=== PATIENT | female | born 1935 | race Caucasian/White ===

== ENCOUNTER 2017-08-09 04:20 | Emergency (ER) | payer OTHER ==
[2017-08-09 05:17] LABS: Urine Blood NEGATIVE (NEG); Urine Glucose NEGATIVE (NEG); Urine Protein NEGATIVE (NEG)
[2017-08-09 05:53] LABS: Protime INR 0.95
[2017-08-09 06:00] LABS: Potassium 4.4 mEq/L (3.6-5.0)
[2017-08-09 06:06] LABS: Albumin 4.2 g/dL (3.2-5.5); Bilirubin Direct 0.1 mg/dL (0-0.2); Bilirubin Total 0.9 mg/dL (0.3-1.2); Protein, Total 7.5 g/dL (6.0-8.3)
[2017-08-09 06:09] LABS: CKMB Creatine Kinase MB 4.1 ng/ml (0.3-4.0)
[2017-08-09 06:22] LABS: Absolute Lymphocytes (CBC) 1.8 K/uL (0.7-4.9); Absolute Monocytes 0.5 K/uL (0.1-1.3); Absolute Neutrophil 3.8 K/uL (1.8-8.0); Basophils % 0.4 % (0-1.3); Eosinophils % 3.5 % (0-4.4); Lymphocytes % 27.7 % (15.3-44.8); MCH 30.2 pg (27.0-35.0); MCV 91.8 fL (80-100); MPV 9.6 fL (7.6-11.3); Monocytes % 8.3 % (3.3-12.3); RBC Red Blood Cell Count 3.49 M/uL (3.86-4.86)
--- NOTE | 2017-08-09 06:56 | EKG ---
Test Date: 2017-08-09 Test Time: 05:25:57 Kier Boiler: LEDA MEASUREMENT RESULTS: Intervals: Rate: 81 OK: 164 QRSD: 88 QT: 394 QTc: 457 Albers: P: 46 OK: 164 QRS: 44 T: 44 INTERPRETIVE STATEMENTS: Sinus rhythm with premature atrial complexes Minimal voltage criteria for LVH, may be normal variant Borderline ECG Compared to ECG 10/20/2016 22:40:38 Atrial premature complex(es) now present Left ventricular hypertrophy now present ST (T wave) deviation no longer present Electronically Signed On 08-09-17 06:55:13 CDT by Haroon Rich
--- NOTE | 2017-08-09 06:58 | ER ---
Nurse's Notes [facility] Name: Joyce Ramírez Age: 81 yrs Sex: Female : 1935 Arrival Date: 08/09/2017 Time: 04:26 Bed 18 Private MD: Diagnosis: Dizziness and giddiness Presentation: 08/09 04:25 Presenting complaint: EMS states: Pt reported having tingling to right arm and pain to ea edis lower extremities. Transition of care: patient was not received from another setting of care. Onset of symptoms was August 09, 2017. Risk Assessment: Do you want to hurt yourself or someone else? Patient reports no desire to harm self or others. Initial Sepsis Screen: Does the patient meet any 2 criteria? No. Patient's initial sepsis screen is negative. Does the patient have a suspected source of infection? No. Patient's initial sepsis screen is negative. Care prior to arrival: IV initiated. 20 GA, in the right antecubital area. 04:25 Method Of Arrival: EMS: [facility], [place] 04:25 Acuity: BRITTANI 3 ea Triage Assessment: 04:25 General: Appears uncomfortable, Behavior is calm, cooperative, appropriate for age. ea Pain: Complains of pain in right leg and left leg Pain currently is 8 out of 10 on a pain scale. Quality of pain is described as aching, Pain began 1 hour ago. EENT: No signs and/or symptoms were reported regarding the EENT system. Neuro: Level of Consciousness is awake, alert, obeys commands, Oriented to person, place, time, situation. Cardiovascular: Heart tones S1 S2 present Patient's skin is warm and dry. Cardiovascular:. Respiratory: Airway is patent Respiratory effort is even, unlabored, Respiratory pattern is regular, symmetrical. GI: No signs and/or symptoms were reported involving the gastrointestinal system. : No signs and/or symptoms were reported regarding the genitourinary system. Derm: Skin is pink, warm \T\ dry. Historical: - Allergies: 04:51 MONTSERRAT INHIBITORS; ea 04:51 Aspirin; ea 04:51 Beta-Blockers (Beta-Adrenergic Blocking Agts); ea 04:51 CALCIUM CHANNEL BLOCKING AGENTS-PHENYLALKYLAMINES; ea 04:51 Codeine; ea 04:51 Doxycycline; ea 04:51 PENICILLINS; ea 04:51 Ymqeivy-Vdo-Xgk Reductase Inhibitors; ea 04:51 Sulfa (Sulfonamide Antibiotics); ea 04:51 tolterodine; ea - Home Meds: 04:51 CALCIUM 1500 MG daily [Active]; clonidine HCl 0.1 mg Oral tab 1 tab 3 times per day ea [Active]; Fish Oil Oral 1200 mg daily [Active]; FLUTICASOME PROPISNOTE twice a day [Active]; Iron CR 65 mg Oral daily [Active]; levothyroxine 100 mcg tab 1 tab once daily [Active]; magnesium oxide 500 mg Oral cap daily [Active]; omeprazole 40 mg Oral cpDR 1 cap once daily [Active]; pramipexole 1.5 mg Oral TbER 1 tab once daily [Active]; spironolactone 25 mg Oral tab 1 tab 2 times per day [Active]; Toviaz 4 mg Oral TbER 1 tab once daily [Active]; tramadol 50 mg Oral tab as needed [Active]; - PMHx: 04:51 Anemia; Cellulitis; CHF; GERD; Hyperlipidemia; Hypertension; Hypothyroidism; ea - Immunization history:: Adult Immunizations up to date. - Social history:: Smoking status: Patient/guardian denies using tobacco. Screenin:57 Abuse screen: Denies threats or abuse. Nutritional screening: No deficits noted. ea Tuberculosis screening: No symptoms or risk factors identified. Fall Risk IV access (20 points). Assessment: 05:00 Reassessment: Patient and/or family updated on plan of care and expected duration. Pain ea level reassessed. Patient is alert, oriented x 3, equal unlabored respirations, skin warm/dry/pink. 06:11 Reassessment: Patient appears in no apparent distress at this time. No changes from ak1 previously documented assessment. Patient is alert, oriented x 3, equal unlabored respirations, skin warm/dry/pink. daughter at there bedside. will continue to monitor. 06:45 Reassessment: Patient appears in no apparent distress at this time. No changes from ak1 previously documented assessment. Patient and/or family updated on plan of care and expected duration. Pain level reassessed. Vital Signs: 04:25 BP 164 / 75; Pulse 74; Resp 18; Temp 97.2(O); Pulse Ox 98% on R/A; Weight 79.38 kg; ea Height 5 ft. 5 in. (165.10 cm); Pain 8/10; 05:00 BP 136 / 62; Pulse 72; Resp 18; Pulse Ox 97% on R/A; Pain 0/10; ea 06:10 BP 118 / 54; Pulse 71; Resp 18; Pulse Ox 96% on R/A; ak1 04:25 Body Mass Index 29.12 (79.38 kg, 165.10 cm) ea ED Course: 04:25 Maintain EMS IV. Dressing intact. Good blood return noted. Site clean \T\ dry. Gauge \T\ ea site: 20 G RAC. 04:25 Patient has correct armband on for positive identification. Placed in gown. Bed in low ea position. Call light in reach. Side rails up X2. 04:25 Arm band placed on right wrist. Patient placed in an exam room, on a stretcher, on ea pulse oximetry. 04:26 Patient arrived in ED. ak1 04:48 Triage completed. ea 04:59 Doreen Moretnsen, RN is Primary Nurse. ea 05:16 Mario Rocha MD is Attending Physician. tw4 06:11 No provider procedures requiring assistance completed. ak1 07:16 IV discontinued, intact, bleeding controlled, No redness/swelling at site. Pressure em dressing applied. Administered Medications: No medications were administered Outcome: 06:57 Discharge ordered by . tw4 07:16 Discharged to home via wheelchair. em 07:16 Condition: good 07:16 Discharge instructions given to patient, Instructed on discharge instructions, follow up and referral plans. Demonstrated understanding of instructions, follow-up care. 07:18 Patient left the ED. em Signatures: Woody Stallworth LVN LVN Myah Salvador, RN ISABELLA ak Doreen Mortensen, RN Mario Lizarraga ea, MD MD tw4
--- NOTE | 2017-08-09 06:58 | EDPHYS ---
Physician Documentation [facility] Name: Joyce Ramírez Age: 81 yrs Sex: Female : 1935 Arrival Date: 08/09/2017 Time: 04:26 Bed 18 Private MD: ED Physician Mario Rocha HPI: 08/09 06:20 This 81 yrs old Female presents to ER via EMS with complaints of Arm Pain, tw4 Leg Pain. 06:20 The patient or guardian complains of pain, that is chronic. The complaints affect the tw4 right bicep, dorsal aspect of right forearm, right tricep and palmar aspect of right forearm. Context: The problem was sustained at home. Onset: The symptoms/episode began/occurred today. Treatment prior to arrival includes: no previous treatment. Modifying factors: The symptoms are alleviated by nothing. the symptoms are aggravated by nothing. Associated signs and symptoms: Pertinent positives: dizziness. Severity of symptoms: At their worst the symptoms were mild, in the emergency department the symptoms have resolved. The patient has not experienced similar symptoms in the past. Historical: - Allergies: 04:51 MONTSERRAT INHIBITORS; ea 04:51 Aspirin; ea 04:51 Beta-Blockers (Beta-Adrenergic Blocking Agts); ea 04:51 CALCIUM CHANNEL BLOCKING AGENTS-PHENYLALKYLAMINES; ea 04:51 Codeine; ea 04:51 Doxycycline; ea 04:51 PENICILLINS; ea 04:51 Mkbopdf-Hud-Hdw Reductase Inhibitors; ea 04:51 Sulfa (Sulfonamide Antibiotics); ea 04:51 tolterodine; ea - Home Meds: 04:51 CALCIUM 1500 MG daily [Active]; clonidine HCl 0.1 mg Oral tab 1 tab 3 times per day ea [Active]; Fish Oil Oral 1200 mg daily [Active]; FLUTICASOME PROPISNOTE twice a day [Active]; Iron CR 65 mg Oral daily [Active]; levothyroxine 100 mcg tab 1 tab once daily [Active]; magnesium oxide 500 mg Oral cap daily [Active]; omeprazole 40 mg Oral cpDR 1 cap once daily [Active]; pramipexole 1.5 mg Oral TbER 1 tab once daily [Active]; spironolactone 25 mg Oral tab 1 tab 2 times per day [Active]; Toviaz 4 mg Oral TbER 1 tab once daily [Active]; tramadol 50 mg Oral tab as needed [Active]; - PMHx: 04:51 Anemia; Cellulitis; CHF; GERD; Hyperlipidemia; Hypertension; Hypothyroidism; ea - Immunization history:: Adult Immunizations up to date. - Social history:: Smoking status: Patient/guardian denies using tobacco. ROS: 06:20 Constitutional: Negative for fever, chills, and weight loss, Cardiovascular: Negative tw4 for chest pain, palpitations, and edema, Respiratory: Negative for shortness of breath, cough, wheezing, and pleuritic chest pain, Abdomen/GI: Negative for abdominal pain, nausea, vomiting, diarrhea, and constipation. 06:20 Skin: Negative for injury, rash, and discoloration, Psych: Negative for depression, anxiety, suicide ideation, homicidal ideation, and hallucinations. 06:20 MS/extremity: Positive for pain, Negative for injury or acute deformity, abrasion, bite, contusion, decreased range of motion, deformity, ecchymosis, erythema, laceration, puncture, rash. 06:20 Neuro: Positive for dizziness, Negative for altered mental status, gait disturbance, headache, hearing loss, loss of consciousness, numbness, seizure activity, speech changes, syncope, tinnitus, tremor, visual changes, weakness. Exam: 06:20 Constitutional: This is a well developed, well nourished patient who is awake, alert, tw4 and in no acute distress. Head/Face: Normocephalic, atraumatic. Chest/axilla: Normal chest wall appearance and motion. Nontender with no deformity. No lesions are appreciated. Cardiovascular: Regular rate and rhythm with a normal S1 and S2. No gallops, murmurs, or rubs. Normal PMI, no JVD. No pulse deficits. Respiratory: Lungs have equal breath sounds bilaterally, clear to auscultation and percussion. No rales, rhonchi or wheezes noted. No increased work of breathing, no retractions or nasal flaring. Abdomen/GI: Soft, non-tender, with normal bowel sounds. No distension or tympany. No guarding or rebound. No evidence of tenderness throughout. Back: No spinal tenderness. No costovertebral tenderness. Full range of motion. 06:20 Musculoskeletal/extremity: Extremities: all appear grossly normal, with no appreciated pain with palpation, ROM: no acute changes, Circulation is intact in all extremities. Edema, 1+ to the left ankle, left foot, right ankle and right foot is noted. 06:20 Skin: Appearance: Color: mary, flushing, not noted, that are mild, induration, that is mild is noted, located on the right leg, lateral aspect of left calf, left calf, medial aspect of left calf and left olsen, Turgor: is poor. Vital Signs: 04:25 BP 164 / 75; Pulse 74; Resp 18; Temp 97.2(O); Pulse Ox 98% on R/A; Weight 79.38 kg; ea Height 5 ft. 5 in. (165.10 cm); Pain 8/10; 05:00 BP 136 / 62; Pulse 72; Resp 18; Pulse Ox 97% on R/A; Pain 0/10; ea 06:10 BP 118 / 54; Pulse 71; Resp 18; Pulse Ox 96% on R/A; ak1 04:25 Body Mass Index 29.12 (79.38 kg, 165.10 cm) ea MDM: 05:16 Patient medically screened. tw4 06:23 Differential diagnosis: contusion, abrasion, tendonitis. Data reviewed: vital signs, tw4 nurses notes. Counseling: I had a detailed discussion with the patient and/or guardian regarding: the historical points, exam findings, and any diagnostic results supporting the discharge/admit diagnosis. 08/09 04:51 Order name: Urine Dipstick--Ancillary (enter results) 2 08/09 05:16 Order name: Basic Metabolic Panel; Complete Time: 06:51 08/09 06:51 Interpretation: Normal except: BUN 36. 08/09 05:16 Order name: BNP; Complete Time: 06:51 08/09 06:53 Interpretation: Within normal limits: BNP 98. 08/09 05:16 Order name: CBC with Diff; Complete Time: 06:51 08/09 06:51 Interpretation: RBC 3.49; HCT 32.0; HGB 10.5. 08/09 05:16 Order name: Ckmb; Complete Time: 06:51 08/09 06:53 Interpretation: Within normal limits: CKMB 4.1. 08/09 05:16 Order name: CPK; Complete Time: 06:51 08/09 05:16 Order name: LFT's; Complete Time: 06:51 08/09 06:53 Interpretation: Within normal limits. 08/09 05:16 Order name: Magnesium; Complete Time: 06:51 08/09 06:54 Interpretation: Within normal limits. 08/09 05:16 Order name: PT-INR; Complete Time: 06:51 08/09 05:16 Order name: Ptt, Activated; Complete Time: 06:51 08/09 05:16 Order name: Troponin (emerg Dept Use Only); Complete Time: 06:51 08/09 06:54 Interpretation: TROPED < 0.03. 08/09 05:16 Order name: EKG; Complete Time: 05:17 08/09 05:16 Order name: Cardiac monitoring; Complete Time: 05:18 08/09 05:16 Order name: EKG - Nurse/Tech; Complete Time: 05:33 08/09 05:16 Order name: IV Saline Lock; Complete Time: 05:18 08/09 05:16 Order name: Labs collected and sent; Complete Time: 05:18 08/09 05:16 Order name: O2 Per Protocol; Complete Time: 05:18 08/09 05:16 Order name: O2 Sat Monitoring; Complete Time: 05:18 08/09 05:16 Order name: Urine Dipstick-Ancillary (obtain specimen); Complete Time: 05:18 EC:23 Rate is 81 beats/min. Rhythm is regular. QRS [place] is Normal. [place] interval is normal. QRS tw4 interval is normal. QT interval is normal. No Q waves. T waves are Normal. No ST changes noted. Clinical impression: NSR w/ Non-specific ST/T Changes. Interpreted by me. Reviewed by me. Administered Medications: No medications were administered Disposition: 08/09/17 06:57 Discharged to Home. Impression: Dizziness and giddiness. - Condition is Stable. - Discharge Instructions: Dizziness, Near-Syncope, Fqll-sv-Bber. - Medication Reconciliation Form, Thank You Letter, Antibiotic Education, Prescription Opioid Use form. - Follow up: Private Physician; When: As needed; Reason: If symptoms return, Recheck today's complaints, Continuance of care, Re-evaluation by your physician. - Problem is new. - Symptoms have improved. Signatures: Dispatcher [employer] EDWoody Owens, FIRE PRODUCTION OPERATOR FIRE PRODUCTION OPERATOR Doreen De Leon, RN RN Mario Garcia MD MD tw4 Corrections: (The following items were deleted from the chart) 07:18 06:57 08/09/2017 06:57 Discharged to Home. Impression: Dizziness and giddiness. em Condition is Stable. Forms are Medication Reconciliation Form, Thank You Letter, Antibiotic Education, Prescription Opioid Use. Follow up: Private Physician; When: As needed; Reason: If symptoms return, Recheck today's complaints, Continuance of care, Re-evaluation by your physician. Problem is new. Symptoms have improved. tw4
[2017-08-09 07:23] VITALS: TEMP 97.2
[2017-08-09 07:26] VITALS: BP 118/54; O2SAT 96
== END 2017-08-09 07:18 | disposition home or self-care (01) ==
LOC: ER 04:20
DX: R42 Dizziness and giddiness (principal); I10 Essential (primary) hypertension; E78.5 Hyperlipidemia, unspecified; I50.9 Heart failure, unspecified; E03.9 Hypothyroidism, unspecified; Z88.0 Allergy status to penicillin; Z88.1 Allergy status to other antibiotic agents; Z88.2 Allergy status to sulfonamides; Z88.6 Allergy status to analgesic agent; Z88.8 Allergy status to other drugs, medicaments and biological substances
CPT/HCPCS: 36415; 80048; 80076; 81003; 82550; 82553; 83735; 83880; 84484; 85025; 85610; 85730; 93005; 99283

== ENCOUNTER 2017-12-11 11:46 | Inpatient (IN) | payer OTHER ==
[2017-12-11] MEDS ORDERED: NA CHLORIDE 0.9% 1,000 ML ONE (12:52)
--- NOTE | 2017-12-11 13:48 | RAD REPORT ---
EXAM DESCRIPTION: RAD - Chest Single View - 12/11/2017 1:28 pm CLINICAL HISTORY: COUGH Chest pain. COMPARISON: Chest Single View dated 08/06/2016; Chest Single View dated 06/28/2016; Chest Single View dated 06/27/2016; Chest Single View dated 05/22/2016 FINDINGS: Portable technique limits examination quality. Bilateral pulmonary opacities are present, nonspecific, but favoring pulmonary edema. Heart is upper limit normal size. No displaced fractures. IMPRESSION: Mild CHF versus volume overload pattern.
--- NOTE | 2017-12-11 14:34 | RAD REPORT ---
EXAM DESCRIPTION: US - Extrem Venous W Compress Handy - 12/11/2017 2:19 pm CLINICAL HISTORY: Pain;Swelling Bilateral leg edema and swelling. COMPARISON: Extrem Venous W Compress Handy dated 08/06/2016 TECHNIQUE: Real-time sonographic interrogation of the left and right lower extremity deep venous sys tems was performed. FINDINGS: Normal compressibility, flow augmentation, phasic flow and spontaneous flow is identified in both the left and right lower extremity deep venous systems. IMPRESSION: No sonographic evidence of left or right lower extremity deep venous thrombosis.
[2017-12-11] MEDS ORDERED: FUROSEMIDE 40 MG/4 ML VIAL ONE (14:55)
[2017-12-11] MEDS ORDERED: CEFEPIME/SWI 1gm 1 GM/10 ML SYR IV ONE (15:00)
[2017-12-11 15:13] LABS: Protime INR 0.99
[2017-12-11 15:20] LABS: ALT/SGPT 16 U/L (12-78); AST/SGOT 14 U/L (15-37); Albumin 3.7 g/dL (3.4-5.0); Alkaline Phosphatase 48 U/L (45-117); BUN Blood Urea Nitrogen 32 mg/dL (7-18); Bicarbonate 28 mmol/L (21-32); Bilirubin Direct 0.2 mg/dL (0-0.2); Bilirubin Total 0.8 mg/dL (0.2-1.0); Glucose Level 94 mg/dL (74-106); Lipase 95 U/L (73-393); Magnesium 2.5 mg/dL (1.8-2.4); NT PRO-BNP 500 pg/mL (<450); Potassium 4.6 mmol/L (3.5-5.1); Protein, Total 7.4 g/dL (6.4-8.2); Sodium Level 141 mmol/L (136-145); Troponin (Emerg Dept Use Only) < 0.02 ng/mL (0.0-0.045)
[2017-12-11 15:22] LABS: Absolute Lymphocytes (CBC) 1.3 K/uL (0.7-4.9); Absolute Monocytes 0.3 K/uL (0.1-1.3); Absolute Neutrophil 3.4 K/uL (1.8-8.0); Basophils % 0.7 % (0-1.3); Eosinophils % 1.4 % (0-4.4); Hematocrit 29.1 % (36.0-45.0); Lymphocytes % 25.6 % (15.3-44.8); MCH 36.9 pg (27.0-35.0); MCV 102.6 fL (80-100); MPV 9.1 fL (7.6-11.3); RBC Red Blood Cell Count 2.84 M/uL (3.86-4.86)
[2017-12-11] MEDS ORDERED: ALBUTEROL 2.5 MG/3 ML NEB SOL NEB PRN (15:56)
[2017-12-11] MEDS ORDERED: ONDANSETRON 4 MG/2 ML VIAL IV PRN (15:56)
[2017-12-11] MEDS ORDERED: IPRATROPIUM BROM 0.5MG/2.5ML NEB PRN (15:56)
[2017-12-11] MEDS ORDERED: VANCOMYCIN/NS 1 gm 1 GM/250 ML BAG IVPB SCH (16:00)
[2017-12-11] MEDS ORDERED: VANCOMYCIN 1 GM/250 ML BAG ONE (16:02)
[2017-12-11] MEDS ORDERED: ACETAMINOPHEN 325 MG TABLET ONE (16:02)
--- NOTE | 2017-12-11 16:08 | ER ---
Nurse's Notes [facility] Name: Joyce Ramírez Age: 82 yrs Sex: Female : 1935 Arrival Date: 12/11/2017 Time: 11:57 Bed 13 Private MD: Diagnosis: Unspecified combined systolic (congestive) and diastolic (congestive) heart failure;Cystitis;Anemia, unspecified;Weakness;Cellulitis and acute lymphangitis of other parts of limb;Edema, unspecified Presentation: 12/11 11:45 Presenting complaint: EMS states: Pt. is 82 yr old, A \T\ O x 4. C/o feeling ill, weak, rb1 hearing has been coming and going x 2-3 days. Stroke scale was negative. C/o SOB. Stroke scale was negative. Denies Pain, NVD, and Fever. History of Pinched nerve on the left side of her neck, UTI, CHF, HTN, and lymphedema. BS 136. Has 20 G L AC. Transition of care: patient was not received from another setting of care. Onset of symptoms is unknown. Risk Assessment: Do you want to hurt yourself or someone else? Patient reports no desire to harm self or others. Initial Sepsis Screen: Does the patient meet any 2 criteria? No. Patient's initial sepsis screen is negative. Does the patient have a suspected source of infection? No. Patient's initial sepsis screen is negative. Care prior to arrival: None. 11:45 Method Of Arrival: [facility] rb1 11:45 Acuity: BRITTANI 3 rb1 Triage Assessment: 11:45 General: Appears in no apparent distress. comfortable, Behavior is calm, cooperative, rb1 Reports feeling ill for Denies fever. Pain: Denies pain. Neuro: Level of Consciousness is awake, alert, obeys commands, Oriented to person, place, time, situation, Shear Helper are weak on left Moves all extremities. Gait is steady, Speech is normal, Facial symmetry appears normal, Pupils are PERRLA. Cardiovascular: Capillary refill < 3 seconds is brisk in bilateral fingers. Respiratory: Airway is patent Respiratory effort is even, unlabored, Respiratory pattern is regular, symmetrical. GI: No signs and/or symptoms were reported involving the gastrointestinal system. : Reports incontinence. Derm: Skin is pink, warm \T\ dry. Musculoskeletal: Range of motion: intact in all extremities. Historical: - Allergies: 11:45 MONTSERRAT INHIBITORS; rb1 11:45 Aspirin; rb1 11:45 Beta-Blockers (Beta-Adrenergic Blocking Agts); rb1 11:45 CALCIUM CHANNEL BLOCKING AGENTS-PHENYLALKYLAMINES; rb1 11:45 Codeine; rb1 11:45 Doxycycline; rb1 11:45 PENICILLINS; rb1 11:45 Gpfcevl-Ccl-Inl Reductase Inhibitors; rb1 11:45 Sulfa (Sulfonamide Antibiotics); rb1 11:45 tolterodine; rb1 11:45 Levofloxacin; rb1 - Home Meds: 11:45 CALCIUM 1500 MG daily [Active]; levothyroxine 112 mcg oral tab [Active]; magnesium rb1 oxide 500 mg Oral cap daily [Active]; Iron CR 65 mg Oral daily [Active]; omeprazole 20 mg oral cpDR [Active]; Fish Oil Oral 1200 mg daily [Active]; Vitamin D Oral daily [Active]; pramipexole 1.5 mg Oral TbER 1 tab once daily [Active]; hydralazine 25 mg Oral tab 1 tab daily [Active]; furosemide 80 mg Oral tab 1 tab once daily [Active]; ropinirole 0.5 mg oral tab 1 tab daily [Active]; - PMHx: 11:45 Anemia; Cellulitis; CHF; GERD; Hyperlipidemia; Hypertension; Hypothyroidism; rb1 - PSHx: 11:45 partial hysterectomy; ovarian mass; cyst left breast; right hip; cataract both eyes; rb1 - Immunization history:: Adult Immunizations up to date. - Social history:: Smoking status: Patient/guardian denies using tobacco. - Ebola Screening: : Patient negative for fever greater than or equal to 101.5 degrees Fahrenheit, and additional compatible Ebola Virus Disease symptoms. Screenin:45 Abuse screen: Denies threats or abuse. Nutritional screening: No deficits noted. rb1 Tuberculosis screening: No symptoms or risk factors identified. Fall Risk Fall in past 12 months (25 points). No secondary diagnosis (0 pts). No IV (0 pts). Ambulatory Aid- None/Bed Rest/Nurse Assist (0 pts). Gait- Weak (10 pts.). Mental Status- Oriented to own ability (0 pts). Total Hollingsworth Fall Scale indicates Low Risk Score (25-44 pts). Fall prevention measures have been instituted. Side Rails Up X 2 Placed close to Nursing Station 1:1 attendant Assigned to Pt. Frequent Obs/Assesments occuring Family Present and informed to notify staff if they need to leave bedside As available Patient and Family Educated on Fall Prevention Program and strategies. Assessment: 11:45 Reassessment: See triage assessment. rb1 13:33 Reassessment: Patient appears in no apparent distress at this time. Patient and/or rb1 family updated on plan of care and expected duration. Pain level reassessed. Patient is alert, oriented x 3, equal unlabored respirations, skin warm/dry/pink. 13:35 Reassessment: US at bedside. rb1 16:00 Reassessment: Patient appears in no apparent distress at this time. Patient and/or rb1 family updated on plan of care and expected duration. Pain level reassessed. Patient is alert, oriented x 3, equal unlabored respirations, skin warm/dry/pink. Family at bedside. 16:53 Reassessment: Called report to ISABELLA Friedman. Information from the SBAR was given. All rb1 questions asked and answered. 17:00 Reassessment: Patient appears in no apparent distress at this time. No changes from rb1 previously documented assessment. Family at bedside. Vital Signs: 11:45 BP 189 / 78; Pulse 85; Resp 17; Temp 97.6(O); Pulse Ox 99% on R/A; Weight 82.55 kg (R); rb1 Height 5 ft. 4 in. (162.56 cm) (R); Pain 0/10; 12:03 Pulse Ox 99% on R/A; dh3 13:00 BP 184 / 71; Pulse 90; Resp 22; Pulse Ox 100% on R/A; rb1 14:00 BP 157 / 59; Pulse 82; Resp 21; Pulse Ox 97% on R/A; rb1 15:00 BP 138 / 65; Pulse 77; Resp 15; Pulse Ox 98% on R/A; rb1 16:00 BP 160 / 92; Pulse 79; Resp 18; Pulse Ox 97% on R/A; Pain 6/10; rb1 16:30 BP 165 / 63; Pulse 80; Resp 25; Pulse Ox 98% on R/A; rb1 11:45 Body Mass Index 31.24 (82.55 kg, 162.56 cm) rb1 ED Course: 11:45 Maintain EMS IV. Dressing intact. Good blood return noted. Site clean \T\ dry. Gauge \T\ rb 1 site: 20 G L AC. 11:45 Arm band placed on right wrist. rb1 11:45 Patient has correct armband on for positive identification. Bed in low position. Call rb1 light in reach. Side rails up X2. Pulse ox on. NIBP on. 11:50 Urine collected: bedpan, clear. dh3 11:57 Patient arrived in ED. rb1 12:01 Luis Doll MD is Attending Physician. james 12:02 EKG done, by ED staff, reviewed by Luis Doll MD. dh3 12:06 Triage completed. rb1 12:13 Lou Kim, RN is Primary Nurse. rb1 13:20 Initial lab(s) drawn, by ar, sent to lab. dh3 13:28 XRAY Chest (1 view) In Process Unspecified. EDMS 14:00 Ultrasound completed. Patient tolerated well. Notified ED Physician jeanna. sg3 14:19 US Extremity Venous W Compression Handy In Process Unspecified. EDMS 14:46 Initial lab(s) drawn, by ar, sent to lab. First set of blood cultures drawn by me. 3 Inserted saline lock: 20 gauge in right antecubital area, using aseptic technique. Blood collected. 15:02 Second set of blood cultures drawn by me. dh3 15:47 Arthur Becerra MD is Hospitalizing Provider. [facility] 17:10 No provider procedures requiring assistance completed. Patient admitted, IV remains in rb1 place. Administered Medications: Discontinued: NS 0.9% 1000 ml IV at 125 ml/hr continuous 12:50 Drug: NS 0.9% 1000 ml Route: IV; Rate: 125 ml/hr; Site: left antecubital; rb1 14:53 Drug: Lasix 40 mg Route: IVP; Site: left antecubital; rb1 15:17 Follow up: Response: No adverse reaction rb1 15:40 Drug: Cefepime 1 grams Route: IVPB; Rate: 200 ml/hr; Infused Over: 30 mins; Site: left rb1 antecubital; 16:10 Follow up: Response: No adverse reaction; IV Status: Completed infusion rb1 16:04 Drug: Tylenol 650 mg Route: PO; rb1 16:40 Follow up: Response: No adverse reaction; Pain is decreased rb1 16:06 Drug: vancoMYCIN 1 grams Route: IVPB; Infused Over: 2 hrs; Site: left antecubital; rb1 17:10 Follow up: IV Status: Infusion continued upon admission rb1 Outcome: 16:08 Decision to Hospitalize by Provider. james 17:10 Patient left the ED. rb1 17:10 Admitted to Med/surg accompanied by tech, family with patient, via stretcher, room 206, rb1 with chart, Report called to ISABELLA Friedman/ISABELLA Blackburn. Information from the SBAR was given. All questions asked and answered. 17:10 Condition: stable 17:10 Instructed on the need for admit. Signatures: Dispatcher [employer] EDKS Luis Doll MD MD cha Barber, Rebecca RN RN rb1 Irish Garduno 3 Mackenzie Ryan 3 Corrections: (The following items were deleted from the chart) 17:23 17:21 Patient left the ED. rb1 rb1
--- NOTE | 2017-12-11 16:09 | EDPHYS ---
Physician Documentation [facility] Name: Joyce Ramírez Age: 82 yrs Sex: Female : 1935 Arrival Date: 12/11/2017 Time: 11:57 Bed 13 Private MD: ED Physician Luis Doll HPI: 12/11 12:27 This 82 yrs old Female presents to ER via EMS with complaints of General james Weakness. 12:27 The patient presents with pain. The complaints affect the right leg and left leg. james Context: The problem was sustained at home, resulted from an unknown cause. Onset: The symptoms/episode began/occurred 2 day(s) ago. Historical: - Allergies: 11:45 MONTSERRAT INHIBITORS; rb1 11:45 Aspirin; rb1 11:45 Beta-Blockers (Beta-Adrenergic Blocking Agts); rb1 11:45 CALCIUM CHANNEL BLOCKING AGENTS-PHENYLALKYLAMINES; rb1 11:45 Codeine; rb1 11:45 Doxycycline; rb1 11:45 PENICILLINS; rb1 11:45 Tgrbzdp-Bnj-Lem Reductase Inhibitors; rb1 11:45 Sulfa (Sulfonamide Antibiotics); rb1 11:45 tolterodine; rb1 11:45 Levofloxacin; rb1 - Home Meds: 11:45 CALCIUM 1500 MG daily [Active]; levothyroxine 112 mcg oral tab [Active]; magnesium rb1 oxide 500 mg Oral cap daily [Active]; Iron CR 65 mg Oral daily [Active]; omeprazole 20 mg oral cpDR [Active]; Fish Oil Oral 1200 mg daily [Active]; Vitamin D Oral daily [Active]; pramipexole 1.5 mg Oral TbER 1 tab once daily [Active]; hydralazine 25 mg Oral tab 1 tab daily [Active]; furosemide 80 mg Oral tab 1 tab once daily [Active]; ropinirole 0.5 mg oral tab 1 tab daily [Active]; - PMHx: 11:45 Anemia; Cellulitis; CHF; GERD; Hyperlipidemia; Hypertension; Hypothyroidism; rb1 - PSHx: 11:45 partial hysterectomy; ovarian mass; cyst left breast; right hip; cataract both eyes; rb1 - Immunization history:: Adult Immunizations up to date. - Social history:: Smoking status: Patient/guardian denies using tobacco. - Ebola Screening: : Patient negative for fever greater than or equal to 101.5 degrees Fahrenheit, and additional compatible Ebola Virus Disease symptoms. ROS: 12:30 Constitutional: Negative for fever, chills, and weight loss, Eyes: Negative for injury, james pain, redness, and discharge, ENT: Negative for injury, pain, and discharge, Neck: Negative for injury, pain, and swelling, Cardiovascular: Negative for chest pain, palpitations, and edema, Abdomen/GI: Negative for abdominal pain, nausea, vomiting, diarrhea, and constipation, Back: Negative for injury and pain, : Negative for injury, bleeding, discharge, and swelling, Neuro: Negative for headache, weakness, numbness, tingling, and seizure, Psych: Negative for depression, anxiety, suicide ideation, homicidal ideation, and hallucinations, Allergy/Immunology: Negative for hives, rash, and allergies, Endocrine: Negative for neck swelling, polydipsia, polyuria, polyphagia, and marked weight changes. 12:30 Respiratory: Positive for cough. 12:30 MS/extremity: Positive for pain, of the right leg and left leg. 12:30 Skin: Positive for cellulitis, swelling, of the right leg and left leg. Exam: 12:30 Constitutional: This is a well developed, well nourished patient who is awake, alert, james and in no acute distress. Head/Face: Normocephalic, atraumatic. Eyes: Pupils equal round and reactive to light, extra-ocular motions intact. Lids and lashes normal. Conjunctiva and sclera are non-icteric and not injected. Cornea within normal limits. Periorbital areas with no swelling, redness, or edema. ENT: Nares patent. No nasal discharge, no septal abnormalities noted. Tympanic membranes are normal and external auditory canals are clear. Oropharynx with no redness, swelling, or masses, exudates, or evidence of obstruction, uvula midline. Mucous membranes moist. Neck: Trachea midline, no thyromegaly or masses palpated, and no cervical lymphadenopathy. Supple, full range of motion without nuchal rigidity, or vertebral point tenderness. No Meningismus. Chest/axilla: Normal chest wall appearance and motion. Nontender with no deformity. No lesions are appreciated. Cardiovascular: Regular rate and rhythm with a normal S1 and S2. No gallops, murmurs, or rubs. Normal PMI, no JVD. No pulse deficits. Abdomen/GI: Soft, non-tender, with normal bowel sounds. No distension or tympany. No guarding or rebound. No evidence of tenderness throughout. Back: No spinal tenderness. No costovertebral tenderness. Full range of motion. Female : Normal external genitalia. Neuro: Awake and alert, GCS 15, oriented to person, place, time, and situation. Cranial nerves II-XII grossly intact. Motor strength 5/5 in all extremities. Sensory grossly intact. Cerebellar exam normal. Normal gait. Psych: Awake, alert, with orientation to person, place and time. Behavior, mood, and affect are within normal limits. 12:30 Respiratory: the patient does not display signs of respiratory distress, Respirations: normal, Breath sounds: no acute changes, Respiratory rate: 17 Vital Signs: 11:45 BP 189 / 78; Pulse 85; Resp 17; Temp 97.6(O); Pulse Ox 99% on R/A; Weight 82.55 kg (R); rb1 Height 5 ft. 4 in. (162.56 cm) (R); Pain 0/10; 12:03 Pulse Ox 99% on R/A; dh3 13:00 BP 184 / 71; Pulse 90; Resp 22; Pulse Ox 100% on R/A; rb1 14:00 BP 157 / 59; Pulse 82; Resp 21; Pulse Ox 97% on R/A; rb1 15:00 BP 138 / 65; Pulse 77; Resp 15; Pulse Ox 98% on R/A; rb1 16:00 BP 160 / 92; Pulse 79; Resp 18; Pulse Ox 97% on R/A; Pain 6/10; rb1 16:30 BP 165 / 63; Pulse 80; Resp 25; Pulse Ox 98% on R/A; rb1 11:45 Body Mass Index 31.24 (82.55 kg, 162.56 cm) [facility] MDM: 12:01 Patient medically screened. [facility] 12:31 Data reviewed: vital signs, nurses notes, lab test result(s), EKG, radiologic studies, [facility] plain films. 12/11 12: Order name: Basic Metabolic Panel; Complete Time: 15:41 [facility] 12/11 12:26 Order name: CBC with Diff [facility] 12/11 12:26 Order name: LFT's; Complete Time: 15:41 [facility] 12/11 12:26 Order name: Magnesium; Complete Time: 15:41 [facility] 12/11 12:26 Order name: NT PRO-BNP; Complete Time: 15:41 [facility] 12/11 12:26 Order name: PT-INR; Complete Time: 15:41 [facility] 12/11 12:26 Order name: Troponin (emerg Dept Use Only); Complete Time: 15:41 [facility] 12/11 12:26 Order name: Lipase; Complete Time: 15:41 [facility] 12/11 12:26 Order name: Procalcitonin [facility] 12/11 12:26 Order name: Urine Culture [facility] 12/11 12:26 Order name: Blood Culture Adult (2) [facility] 12/11 12:52 Order name: Urine Dipstick--Ancillary (enter results) sp 12/11 15:23 Order name: CBC Smear Scan [facility] 12/11 16:06 Order name: Troponin I [facility] 12/11 12:26 Order name: XRAY Chest (1 view); Complete Time: 14:09 [facility] 12/11 12:26 Order name: EKG; Complete Time: 12:27 [facility] 12/11 12:26 Order name: Cardiac monitoring; Complete Time: 13:21 [facility] 12/11 12:26 Order name: EKG - Nurse/Tech; Complete Time: 13:21 [facility] 12/11 13:06 Order name: US Extremity Venous W Compression Handy; Complete Time: 15:04 [facility] 12/11 16:06 Order name: CONS Pharmacy Consult [facility] 12/11 16:06 Order name: Echo with Doppler [facility] 12/11 16:06 Order name: EKG Electrocardiogram [facility] 12/11 16:06 Order name: EKG Electrocardiogram [facility] 12/11 16:06 Order name: Troponin I [facility] 12/11 12:26 Order name: IV Saline Lock; Complete Time: 13:21 [facility] 12/11 12:26 Order name: Labs collected and sent; Complete Time: 13:21 [facility] 12/11 12:26 Order name: O2 Per Protocol; Complete Time: 13:21 [facility] 12/11 12:26 Order name: O2 Sat Monitoring; Complete Time: 13:21 [facility] 12/11 12:26 Order name: Urine Dipstick-Ancillary (obtain specimen); Complete Time: 13:21 [facility] 12/11 15:00 Order name: Santos; Complete Time: 15:50 rb1 Administered Medications: Discontinued: NS 0.9% 1000 ml IV at 125 ml/hr continuous 12:50 Drug: NS 0.9% 1000 ml Route: IV; Rate: 125 ml/hr; Site: left antecubital; rb1 14:53 Drug: Lasix 40 mg Route: IVP; Site: left antecubital; rb1 15:17 Follow up: Response: No adverse reaction rb1 15:40 Drug: Cefepime 1 grams Route: IVPB; Rate: 200 ml/hr; Infused Over: 30 mins; Site: left rb1 antecubital; 16:10 Follow up: Response: No adverse reaction; IV Status: Completed infusion rb1 16:04 Drug: Tylenol 650 mg Route: PO; rb1 16:40 Follow up: Response: No adverse reaction; Pain is decreased rb1 16:06 Drug: vancoMYCIN 1 grams Route: IVPB; Infused Over: 2 hrs; Site: left antecubital; rb1 17:10 Follow up: IV Status: Infusion continued upon admission rb1 Disposition: 12/11/17 16:08 Hospitalization ordered by Arthur Becerra for Inpatient Admission. Preliminary diagnosis are Unspecified combined systolic (congestive) and diastolic (congestive) heart failure, Cystitis, Anemia, unspecified, Weakness, Cellulitis and acute lymphangitis of other parts of limb, Edema, unspecified. - Bed requested for Telemetry/MedSurg (Inpatient). - Status is Inpatient Admission. rb1 - Condition is Stable. - Problem is new. - Symptoms have improved. UTI on Admission? Yes Signatures: Dispatcher [employer] [facility] Luis Doll MD MD cha Pinkerton, Shawna sp Barber, Rebecca, RN RN rb1 Corrections: (The following items were deleted from the chart) 16:00 14:47 Shoulder Left 2 View+RAD.RAD.BRZ ordered. [facility] 16:40 16:08 Hospitalization Ordered by Arthur Becerra MD for Inpatient Admission. Preliminary sp diagnosis is Unspecified combined systolic (congestive) and diastolic (congestive) heart failure; Cystitis; Anemia, unspecified; Weakness; Cellulitis and acute lymphangitis of other parts of limb; Edema, unspecified. Bed requested for Telemetry/MedSurg (Inpatient). Status is Inpatient Admission. Condition is Stable. Problem is new. Symptoms have improved. UTI on Admission? Yes. james 17:21 16:40 12/11/2017 16:08 Hospitalization Ordered by Arthur Becerra MD for Inpatient rb1 Admission. Preliminary diagnosis is Unspecified combined systolic (congestive) and diastolic (congestive) heart failure; Cystitis; Anemia, unspecified; Weakness; Cellulitis and acute lymphangitis of other parts of limb; Edema, unspecified. Bed requested for Telemetry/MedSurg (Inpatient). Status is Inpatient Admission. Condition is Stable. Problem is new. Symptoms have improved. UTI on Admission? Yes. sp
[2017-12-11] MEDS ORDERED: VANCOMYCIN 500 MG in NA CHLORIDE 0.9% 100 ML IVPB ONE (16:30)
[2017-12-11 16:44] LABS: Agglutinates, Cold (RBC Morph) NOTED; Blood Morphology Comment NOTED (NOT SEEN); Platelet Estimate ADEQ; Urine White Blood Cell Casts OK
[2017-12-11] MEDS ORDERED: FUROSEMIDE 20 MG/ 2ML VIAL IV SCH (17:00)
[2017-12-11] MEDS: ACETAMINOPHEN 500 MG TAB PO PRN (18:40)
[2017-12-11] MEDS: ROPINIROLE HCL 0.25 MG TAB PO SCH (20:08)
[2017-12-11] MEDS: TRAMADOL HCL 50 MG TAB PO SCH (20:09)
[2017-12-11 20:32] LABS: Urine Blood NEGATIVE (NEG); Urine Glucose NEGATIVE (NEG); Urine Specific Gravity 1.015 (1.005-1.030)
[2017-12-11 20:33] LABS: Urine Protein NEGATIVE (NEG)
[2017-12-11] MEDS ORDERED: CEFEPIME 1 GM/VIAL IV SCH (21:00)
[2017-12-12] MEDS: TRAMADOL HCL 50 MG TAB PO SCH ×4 (02:05→20:55)
[2017-12-12] MEDS ORDERED: CEFEPIME/SWI 1gm 1 GM/10 ML SYR IV SCH (05:00)
[2017-12-12 05:17] LABS: Potassium 3.9 mmol/L (3.5-5.1)
[2017-12-12 05:23] LABS: Absolute Lymphocytes (CBC) 1.6 K/uL (0.7-4.9); Absolute Monocytes 0.7 K/uL (0.1-1.3); Absolute Neutrophil 5.9 K/uL (1.8-8.0); Basophils % 0.3 % (0-1.3); Eosinophils % 1.9 % (0-4.4); Lymphocytes % 18.7 % (15.3-44.8); MCH 33.3 pg (27.0-35.0); MCV 96.4 fL (80-100); MPV 8.7 fL (7.6-11.3); Monocytes % 8.3 % (3.3-12.3); RBC Red Blood Cell Count 3.11 M/uL (3.86-4.86)
--- NOTE | 2017-12-12 07:35 | RAD REPORT ---
EXAM DESCRIPTION: RAD - Chest Single View - 12/12/2017 6:43 am CLINICAL HISTORY: Chest pain COMPARISON: December 11 TECHNIQUE: AP portable chest image was obtained 0628 hours . FINDINGS: Lung volumes are low. Lung parenchymal opacification is similar to slightly improved. Hear t size is normal and stable. Trachea is midline. No measurable pleural effusion and no pneumothorax. IMPRESSION: Shallow inspiration film showing slight improvement in the lung parenchymal opacificatio n. No progressive process seen.
--- NOTE | 2017-12-12 08:09 | EKG ---
Test Date: 2017-12-11 Test Time: 11:58:25 Director Call: AGNES MEASUREMENT RESULTS: Intervals: Rate: 83 WY: 150 QRSD: 84 QT: 366 QTc: 430 [place]: P: 59 WY: 150 QRS: 53 T: 61 INTERPRETIVE STATEMENTS: Normal sinus rhythm Minimal voltage criteria for LVH, may be normal variant ST abnormality, possible digitalis effect Abnormal ECG Compared to ECG 08/09/2017 05:25:57 ST (T wave) deviation now present Atrial premature complex(es) no longer present Electronically Signed On 12-12-17 08:09:06 CDT by Haroon Rich
--- NOTE | 2017-12-12 08:56 | P.HP ---
Certification for Inpatient Patient admitted to: Inpatient With expected LOS: >2 Midnights Patient will require the following post-hospital care: None Practitioner: I am a practitioner with admitting privileges, knowledge of patient current condition, hospital course, and medical plan of care. Services: Services provided to patient in accordance with Admission requirements found in Title 42 Section 412.3 of the Code of Federal Regulations Patient History Date of Service: 12/12/17 Primary Care Provider: Hernan Reason for admission: CHF Exacerbation History of Present Illness: Patient comes in with complaints of shortness of breath and swelling of her legs. She was found to have an elevated blood pressure at home sbp in the 170. The patient called her daughter who brought her to the ER. She was also found to have an reddness of her lower legs. Was admitted for cellulitis and chf. Her previous echocardiogram in was normal. She has not had any falls , no fevers or chills. No complaints of chest pain or palpations. Allergies aspirin Allergy (Intermediate, Verified 06/28/16 08:13) Nausea/Vomiting codeine Allergy (Intermediate, Verified 06/28/16 08:13) Nervousness, can't sleep Penicillins Allergy (Intermediate, Verified 06/28/16 08:13) diarrhea Uljptsa-Jex-Hcp Reductase Inhibitor Allergy (Intermediate, Verified 06/28/16 08: 13) Itching Sulfa (Sulfonamide Antibiotics) Allergy (Intermediate, Verified 06/28/16 08:13) Dizziness, hallucinations tolterodine Allergy (Verified 06/28/16 08:13) Unknown Beta-Blockers (Beta-Adrenergic Bloc Adverse Reaction (Verified 06/28/16 08:13) unknown Calcium Channel Blocking Agents-Dih Adverse Reaction (Verified 06/28/16 08:13) nervousness Home Medications: Calcium Carbonate [Calcium] 1,500 mg PO DAILY 08/06/16 Cholecalciferol (Vitamin D3) [Vitamin D 400 IU TAB*] 800 unit PO DAILY 08/06/16 Ferrous Sulfate [Iron] 325 mg PO DAILY 08/06/16 Furosemide 80 mg PO DAILY 08/06/16 Hydralazine [Apresoline*] 25 mg PO DAILY 08/06/16 Magnesium Oxide [Magnesium] 1 tab PO DAILY 08/06/16 [place]-3 Fatty Acids [Fish Oil] 1,200 mg PO DAILY 08/06/16 Pramipexole Di-HCl [Pramipexole ER] 1.5 mg PO DAILY 08/06/16 Tramadol HCl [Ultram] 50 mg PO TID PRN 08/06/16 Levothyroxine [Synthroid] 112 mcg PO [id number] 12/11/17 Omeprazole 20 mg PO DAILY 12/11/17 Ropinirole HCl [Requip] 0.5 mg PO BEDTIME 12/11/17 - Past Medical/Surgical History Has patient received pneumonia vaccine in the past: Yes Diabetic: No -: Hypertension -: Hypothyroidism -: Edema to the lower extremities -: Venous insufficiency -: Restless leg syndrome -: GERD -: Urinary incontinence -: CHF, likely diastolic dysfunction -: Hysterectomy -: Bilateral oophorectomy -: Left breast cyst removed -: Total right knee replacement -: Cataract surgery Psychosocial/ Personal History: Patient is , she has 3 children. She does not work. She lives by herself but near family. - Family History Sister -: Lung disease - Social History Smoking Status: Never smoker Alcohol use: No CD- Drugs: No Caffeine use: No Place of Residence: Home Review of Systems 10-point ROS is otherwise unremarkable Respiratory: Shortness of Breath Cardiovascular: Edema (of the lower extremities) Physical Examination - Vital Signs Temperature: 97.4 F Blood Pressure: 137/63 Pulse: 64 Respirations: 18 Pulse Ox (%): 95 - Physical Exam General: Alert, In no apparent distress HEENT: Atraumatic, PERRLA, Mucous membr. moist/pink, EOMI, Sclerae nonicteric Neck: Supple, 2+ carotid pulse no bruit, No LAD, Without JVD or thyroid abnormality Respiratory: Clear to auscultation bilaterally, Normal air movement Cardiovascular: Regular rate/rhythm, Normal S1 S2, Edema (2+ of the lower extermities) Gastrointestinal: Normal bowel sounds, No tenderness Musculoskeletal: No tenderness Integumentary: No rashes, Warmth, Other (chronic vascular changes of the lower legs) Neurological: Normal gait, Normal speech, Normal strength at 5/5 x4 extr, Normal tone, Normal affect Lymphatics: No axilla or inguinal lymphadenopathy - Studies Laboratory Data (last 24 hrs) 12/11/17 14:46: PT 11.7, INR 0.99 12/11/17 14:46: WBC 5.1, Hgb 10.5 L, Hct 29.1 L, Plt Count 208 12/11/17 14:46: Sodium 141, Potassium 4.6, BUN 32 H, Creatinine 0.90, Glucose 94 , Magnesium 2.5 H, Total Bilirubin 0.8, AST 14 L, ALT 16, Alkaline Phosphatase 48, Lipase 95 Assessment and Plan - Problems (Diagnosis) (1) CHF (congestive heart failure) Onset Date: 06/28/16 Current Visit: No Status: Acute Plan: will check a new echocardiogram. Will also increase her lasix. She has signs of peripheral vascular disease. Considering her advanced age, this is to be expected. Add spirnolactone see if that helps with the diuresis. Will need to watch her potassium and magnesium. Qualifiers: Heart failure type: unspecified Heart failure chronicity: acute Qualified Code(s): I50.9 - Heart failure, unspecified (2) Cellulitis Onset Date: 05/24/16 Current Visit: No Status: Acute Plan: Will continue vancomycin. If procalcitonin is negative will switch her to oral bactrim or augmentin Qualifiers: Site of cellulitis: extremity Site of cellulitis of extremity: lower extremity Laterality: unspecified laterality Qualified Code(s): L03.119 - Cellulitis of unspecified part of limb (3) Hypertension Onset Date: 05/24/16 Current Visit: No Status: Chronic Plan: Continue home meds, adjust as necessary. Qualifiers: Hypertension type: essential hypertension (4) Restless leg syndrome Onset Date: 06/28/16 Current Visit: No Status: Chronic Plan: will continue her requip and prampexiole Discharge Plan: Home Plan to discharge in: 48 Hours - Advance Directives Does patient have a Living Will: No Does patient have a Durable POA for Healthcare: No - Code Status/Comfort Care Code Status Assessed: No Code Status: Full Code Physician Review: Patient Assessed, Agree with Above Assessment and Plan Critical Care: No Time Spent Managing Pts Care (In Minutes): 45
[2017-12-12] MEDS: DOCOSAHEXANOIC AC/EPA 1000 MG PO SCH (09:00)
[2017-12-12] MEDS: FERROUS SULFATE 325 MG TAB PO SCH (10:03)
[2017-12-12] MEDS: VITAMIN D 400 UNIT TAB PO SCH (10:04)
[2017-12-12] MEDS: CALCIUM CARBONATE 500 MG TAB PO SCH (10:05)
[2017-12-12] MEDS: MAGNESIUM OXIDE 400 MG TAB PO SCH (10:06)
[2017-12-12] MEDS: HYDRALAZINE HCL 25 MG TABLET PO SCH (10:06)
[2017-12-12] MEDS: SPIRONOLACTONE 25 MG TABLET PO SCH (10:06)
[2017-12-12] MEDS: PRAMIPEXOLE 1 MG TAB PO SCH (10:07)
--- NOTE | 2017-12-12 11:59 | ECHO ---
HEIGHT: 5 ft 4 in WEIGHT: 180 lb 0 oz DATE OF STUDY: 12/12/[address]: 2-DIMENSIONAL: YES M.MODE: YES DOPPLER: YES COLOR FLOW: YES TDS: NO PORTABLE: NO DEFINITY: NO BUBBLE STUDY: NO DIAGNOSIS: CONGESTIVE HEART FAILURE CARDIAC HISTORY: CATHERIZATION: NO SURGERY: NO PROSTHETIC VALVE: NO PACEMAKER: NO MEASUREMENTS (cm) DIASTOLIC (NORMALS) SYSTOLIC (NORMALS) IVSd 1.1 (0.6-1.2) LA Diam 4.1 (1.9-4.0) LVEF 67% LVIDd 4.3 (3.5-5.7) LVIDs 2.7 (2.0-3.5) %FS 37% LVPWd 1.1 (0.6-1.2) Ao Diam 2.9 (2.0-3.7) 2 DIMENSIONAL ASSESSMENT: RIGHT ATRIUM: NORMAL LEFT ATRIUM: DILATED RIGHT VENTRICLE: NORMAL LEFT VENTRICLE: NORMAL TRICUSPID VALVE: NORMAL MITRAL VALVE: MITRAL ANNULAR CALCIFICATION PULMONIC VALVE: NORMAL AORTIC VALVE: NORMAL PERICARDIAL EFFUSION: NONE AORTIC ROOT: NORMAL LEFT VENTRICULAR WALL MOTION: NORMAL. DOPPLER/COLOR FLOW: MILD MITRAL REGURGITATION AND TRICUSPID REGURGITATION. NORMAL RIGHT VENTRICULAR SYSTOLIC PRESSURE. COMMENTS: NORMAL LEFT VENTRICULAR EJECTION FRACTION. MILD MITRAL REGURGITATION AND TRICUSPID REGURGITATION. MITRAL ANNULAR CALCIFICATION. TECHNOLOGIST: MATIAS HULL RDCS
[2017-12-12] MEDS: FUROSEMIDE 40 MG/4 ML VIAL IV SCH (12:19)
[2017-12-12] MEDS: VANCOMYCIN 1.5 GM in NA CHLORIDE 0.9% 500 ML IVPB SCH (17:08)
[2017-12-12] MEDS: ENOXAPARIN 30 MG/0.3 ML SQ SCH (17:12)
[2017-12-12] MEDS: ROPINIROLE HCL 0.25 MG TAB PO SCH (20:55)
[2017-12-12] MEDS ORDERED: HOME MED 1 EA UNK (Ropinirole Hcl [Requip] 0.5 MG) PO SCH (21:00)
[2017-12-13] MEDS: ACETAMINOPHEN 500 MG TAB PO PRN (04:18)
[2017-12-13 05:22] VITALS: BMI 32.1
[2017-12-13] MEDS: PANTOPRAZOLE 40MG TABLET PO SCH (05:25)
[2017-12-13] MEDS: LEVOTHYROXINE SOD 0.112 MG TAB PO SCH (05:25)
[2017-12-13 05:58] LABS: Absolute Lymphocytes (CBC) 1.4 K/uL (0.7-4.9); Absolute Monocytes 0.6 K/uL (0.1-1.3); Absolute Neutrophil 4.3 K/uL (1.8-8.0); Basophils % 0.6 % (0-1.3); Eosinophils % 3.3 % (0-4.4); Hematocrit 30.1 % (36.0-45.0); Lymphocytes % 20.7 % (15.3-44.8); MCH 35.7 pg (27.0-35.0); MPV 8.7 fL (7.6-11.3); Monocytes % 9.4 % (3.3-12.3); RBC Red Blood Cell Count 3.01 M/uL (3.86-4.86)
[2017-12-13 06:21] LABS: Magnesium 2.3 mg/dL (1.8-2.4); Potassium 3.9 mmol/L (3.5-5.1)
[2017-12-13] MEDS ORDERED: BISACODYL E.C. 5 MG TAB PO PRN (07:22)
[2017-12-13] MEDS: HYDRALAZINE HCL 25 MG TABLET PO SCH (09:00)
[2017-12-13] MEDS: DOCOSAHEXANOIC AC/EPA 1000 MG PO SCH (09:00)
[2017-12-13] MEDS: SPIRONOLACTONE 25 MG TABLET PO SCH (09:00)
[2017-12-13] MEDS: FUROSEMIDE 40 MG/4 ML VIAL IV SCH (09:00)
[2017-12-13] MEDS: TRAMADOL HCL 50 MG TAB PO SCH ×3 (09:00→20:45)
--- NOTE | 2017-12-13 10:00 | P.PN ---
Subjective Date of Service: 12/13/17 Primary Care Provider: Hernan Chief Complaint: CHF Exacerbation Subjective: Improving Review of Systems 10-point ROS is otherwise unremarkable General: Other (Had some itching over the night) Physical Examination - Vital Signs Temperature: 97.6 F Blood Pressure: 117/55 Pulse: 59 Respirations: 17 Pulse Ox (%): 90 - Physical Exam General: Alert, In no apparent distress HEENT: Atraumatic, PERRLA, EOMI Neck: Supple, JVD not distended Respiratory: Clear to auscultation bilaterally, Normal air movement Cardiovascular: Regular rate/rhythm, Normal S1 S2 Gastrointestinal: Normal bowel sounds, No tenderness Musculoskeletal: No tenderness Integumentary: No rashes Neurological: Normal speech, Normal tone, Normal affect Lymphatics: No axilla or inguinal lymphadenopathy Other Physical/Emotional Findings: lower extremeties have returned to normal - Studies Laboratory Data (last 24 hrs) 12/13/17 05:35: Sodium 137, Potassium 3.9, BUN 28 H, Creatinine 0.90, Glucose 94 , Magnesium 2.3 12/13/17 05:35: WBC 6.5 D, Hgb 10.7 L, Hct 30.1 L, Plt Count 198 Microbiology Data (last 24 hrs): 12/11/17 12:42 Catheterized Urine [place] Count - Final <10,000 CFU/ML. 12/11/17 12:42 Catheterized Urine - Final Assessment & Plan - Problems (Diagnosis) (1) CHF (congestive heart failure) Onset Date: 06/28/16 Current Visit: No Status: Acute Plan: will check a new echocardiogram. Need to ambulate her. D/c Santos and tele. Give her ducolax for a bowel movement Qualifiers: Heart failure type: unspecified Heart failure chronicity: acute Qualified Code(s): I50.9 - Heart failure, unspecified (2) Cellulitis Onset Date: 05/24/16 Current Visit: No Status: Acute Plan: Will continue vancomycin. She had one positive blood culture out of 2 bottles. Will wait for the antibiotic results so we can send her home on the right antibiotics Qualifiers: Site of cellulitis: extremity Site of cellulitis of extremity: lower extremity Laterality: unspecified laterality Qualified Code(s): L03.119 - Cellulitis of unspecified part of limb (3) Hypertension Onset Date: 05/24/16 Current Visit: No Status: Chronic Plan: Continue home meds, adjust as necessary. Qualifiers: Hypertension type: essential hypertension (4) Restless leg syndrome Onset Date: 06/28/16 Current Visit: No Status: Chronic Plan: will continue her requip and prampexiole Discharge Plan: Home Plan to discharge in: 24 Hours - Code Status/Comfort Care Code Status Assessed: No Code Status: Full Code Physician Review: Patient Assessed, Agree with Above Assessment and Plan Critical Care: No Time Spent Managing Pts Care (In Minutes): 25
[2017-12-13] MEDS: FERROUS SULFATE 325 MG TAB PO SCH (10:49)
[2017-12-13] MEDS: MAGNESIUM OXIDE 400 MG TAB PO SCH (10:49)
[2017-12-13] MEDS: VITAMIN D 400 UNIT TAB PO SCH (10:54)
[2017-12-13] MEDS: CALCIUM CARBONATE 500 MG TAB PO SCH (10:54)
[2017-12-13] MEDS: PRAMIPEXOLE 1 MG TAB PO SCH (10:56)
[2017-12-13] MEDS: VANCOMYCIN 1.5 GM in NA CHLORIDE 0.9% 500 ML IVPB SCH (18:36)
[2017-12-13] MEDS: ENOXAPARIN 30 MG/0.3 ML SQ SCH (18:53)
[2017-12-13] MEDS: ROPINIROLE HCL 0.25 MG TAB PO SCH (20:45)
[2017-12-14] MEDS: PANTOPRAZOLE 40MG TABLET PO SCH (06:25)
[2017-12-14] MEDS: LEVOTHYROXINE SOD 0.112 MG TAB PO SCH (06:25)
[2017-12-14 06:33] LABS: Absolute Lymphocytes (CBC) 1.8 K/uL (0.7-4.9); Absolute Monocytes 0.7 K/uL (0.1-1.3); Absolute Neutrophil 4.4 K/uL (1.8-8.0); Basophils % 0.3 % (0-1.3); Eosinophils % 3.8 % (0-4.4); Lymphocytes % 24.8 % (15.3-44.8); MCH 31.8 pg (27.0-35.0); MCV 92.9 fL (80-100); MPV 9.2 fL (7.6-11.3); Monocytes % 9.2 % (3.3-12.3); RBC Red Blood Cell Count 3.23 M/uL (3.86-4.86)
[2017-12-14] MEDS: DOCOSAHEXANOIC AC/EPA 1000 MG PO SCH (09:00)
[2017-12-14] MEDS: FUROSEMIDE 40 MG/4 ML VIAL IV SCH (10:00)
[2017-12-14] MEDS: HYDRALAZINE HCL 25 MG TABLET PO SCH (10:00)
[2017-12-14] MEDS: SPIRONOLACTONE 25 MG TABLET PO SCH (10:00)
[2017-12-14 10:15] VITALS: O2SAT 96
[2017-12-14] MEDS: CALCIUM CARBONATE 500 MG TAB PO SCH (10:30)
[2017-12-14] MEDS: VITAMIN D 400 UNIT TAB PO SCH (10:30)
[2017-12-14] MEDS: MAGNESIUM OXIDE 400 MG TAB PO SCH (10:31)
[2017-12-14] MEDS: FERROUS SULFATE 325 MG TAB PO SCH ×2 (10:31→12:04)
[2017-12-14] MEDS: TRAMADOL HCL 50 MG TAB PO SCH (10:32)
[2017-12-14] MEDS: PRAMIPEXOLE 1 MG TAB PO SCH (10:33)
[2017-12-14 10:35] VITALS: BP 115/58
[2017-12-14 13:12] VITALS: TEMP 97.6
--- NOTE | 2017-12-14 14:24 | P.SSS ---
Patient History Date of Service: 12/14/17 Primary Care Provider: Hernan Reason for admission: CHF Exacerbation History of Present Illness: Patient comes in with complaints of shortness of breath and swelling of her legs. She was found to have an elevated blood pressure at home sbp in the 170. The patient called her daughter who brought her to the ER. She was also found to have an reddness of her lower legs. Was admitted for cellulitis and chf. Her previous echocardiogram in was normal. She has not had any falls , no fevers or chills. No complaints of chest pain or palpations Allergies aspirin Allergy (Intermediate, Verified 06/28/16 08:13) Nausea/Vomiting codeine Allergy (Intermediate, Verified 06/28/16 08:13) Nervousness, can't sleep Penicillins Allergy (Intermediate, Verified 06/28/16 08:13) diarrhea Avukjzg-Blk-Lhm Reductase Inhibitor Allergy (Intermediate, Verified 06/28/16 08: 13) Itching Sulfa (Sulfonamide Antibiotics) Allergy (Intermediate, Verified 06/28/16 08:13) Dizziness, hallucinations tolterodine Allergy (Verified 06/28/16 08:13) Unknown Beta-Blockers (Beta-Adrenergic Bloc Adverse Reaction (Verified 06/28/16 08:13) unknown Calcium Channel Blocking Agents-Dih Adverse Reaction (Verified 06/28/16 08:13) nervousness Home Medications: Calcium Carbonate [Calcium] 1,500 mg PO DAILY 08/06/16 Cholecalciferol (Vitamin D3) [Vitamin D 400 IU TAB*] 800 unit PO DAILY 08/06/16 Ferrous Sulfate [Iron] 325 mg PO DAILY 08/06/16 Furosemide 80 mg PO DAILY 08/06/16 Hydralazine [Apresoline*] 25 mg PO DAILY 08/06/16 Magnesium Oxide [Magnesium] 1 tab PO DAILY 08/06/16 [place]-3 Fatty Acids [Fish Oil] 1,200 mg PO DAILY 08/06/16 Pramipexole Di-HCl [Pramipexole ER] 1.5 mg PO DAILY 08/06/16 Tramadol HCl [Ultram] 50 mg PO TID PRN 08/06/16 Levothyroxine [Synthroid] 112 mcg PO [id number] 12/11/17 Omeprazole 20 mg PO DAILY 12/11/17 Ropinirole HCl [Requip] 0.5 mg PO BEDTIME 12/11/17 - Past Medical/Surgical History Has patient received pneumonia vaccine in the past: Yes Diabetic: No -: Hypertension -: Hypothyroidism -: Edema to the lower extremities -: Venous insufficiency -: Restless leg syndrome -: GERD -: Urinary incontinence -: CHF, likely diastolic dysfunction -: Hysterectomy -: Bilateral oophorectomy -: Left breast cyst removed -: Total right knee replacement -: Cataract surgery Psychosocial/ Personal History: Patient is , she has 3 children. She does not work. She lives by herself but near family. - Family History Sister -: Lung disease - Social History Smoking Status: Never smoker Alcohol use: No CD- Drugs: No Caffeine use: No Place of Residence: Home Review of Systems 10-point ROS is otherwise unremarkable Physical Examination - Vital Signs Temperature: 97.6 F Blood Pressure: 115/58 Pulse: 61 Respirations: 18 Pulse Ox (%): 96 - Physical Exam General: Alert, In no apparent distress HEENT: Atraumatic, PERRLA, Mucous membr. moist/pink, EOMI, Sclerae nonicteric Neck: Supple, 2+ carotid pulse no bruit, No LAD, Without JVD or thyroid abnormality Respiratory: Clear to auscultation bilaterally, Normal air movement Cardiovascular: Regular rate/rhythm, Normal S1 S2 Gastrointestinal: Normal bowel sounds, No tenderness Musculoskeletal: No tenderness Integumentary: No rashes Neurological: Normal gait, Normal speech, Normal strength at 5/5 x4 extr, Normal tone, Normal affect Lymphatics: No axilla or inguinal lymphadenopathy Other Physical/Emotional Findings: lower extremeties have returned to normal - Diagnosis (Problem(s)) (1) CHF (congestive heart failure) Onset Date: 06/28/16 Status: Acute Qualifiers: Heart failure type: unspecified Heart failure chronicity: acute on chronic Qualified Code(s): I50.9 - Heart failure, unspecified (2) Chronic renal disease Onset Date: 06/28/16 Status: Chronic Qualifiers: Chronic kidney disease stage: stage 2 (mild) Qualified Code(s): N18.2 - Chronic kidney disease, stage 2 (mild) (3) GERD (gastroesophageal reflux disease) Onset Date: 06/28/16 Status: Chronic Qualifiers: Esophagitis presence: esophagitis presence not specified Qualified Code(s) : K21.9 - Gastro-esophageal reflux disease without esophagitis (4) Hypertension Onset Date: 05/24/16 Status: Chronic Qualifiers: Hypertension type: essential hypertension (5) Hypothyroidism Onset Date: 06/28/16 Status: Chronic Qualifiers: Hypothyroidism type: acquired Qualified Code(s): E03.9 - Hypothyroidism, unspecified (6) Restless leg syndrome Onset Date: 06/28/16 Status: Chronic Treatment Summary: overall during the hospital stay patient remained stable Patient was initially admitted to the hospital for CHF exacerbation was started on IV Lasix. Cardiology was consulted who recommended the patient be switched over to oral Lasix as her symptoms had resolved. Patient had an echocardiogram done here in the hospital which was within normal limits. Patient then was discharged home under stable condition once her CHF exacerbation has resolved. Of note patient had blood cultures collected here in the hospital 1 / bottle was positive for Staph. Most likely a contaminant this patient was not discharged home on any antibiotics. Patient was asked to follow up with PCP in about 1-2 days post discharge. - Disposition Disposition: ROUTINE DISCHARGE Physician Review: Patient Assessed, Agree with Above Assessment and Plan
== END 2017-12-14 13:48 | disposition home health service (06) | DRG 292 ==
LOC: ER 11:46 → INTOOBSV 15:53 → ERHOLD 15:53 → 2ND 16:58 → OBSVTOIN 12-13 09:46
PROVIDERS: ADMIT Internal Medicine; ATTEND Internal Medicine
DX: I11.0 Hypertensive heart disease with heart failure (principal); L03.119 Cellulitis of unspecified part of limb; I50.33 Acute on chronic diastolic (congestive) heart failure; E03.9 Hypothyroidism, unspecified; G25.81 Restless legs syndrome; Z96.651 Presence of right artificial knee joint; Z88.6 Allergy status to analgesic agent; Z88.0 Allergy status to penicillin; Z88.2 Allergy status to sulfonamides
CPT/HCPCS: 36415; 71045; 80048; 80076; 80202; 81003; 83690; 83735; 83880; 84145; 84484; 85025; 85610; 87040; 87086; 87088; 87205; 93005; 93306; 93970; 96365; 96375; 97163; 99285; G0378; J0692; J1650; J1940; J2405; J3370; J7030

== ENCOUNTER 2018-02-12 17:25 | Inpatient (IN) | payer OTHER ==
--- NOTE | 2018-02-12 18:47 | RAD REPORT ---
EXAM DESCRIPTION: RAD - Chest Single View - 02/12/2018 6:34 pm CLINICAL HISTORY: bilateral leg swelling Chest pain. COMPARISON: Chest Single View dated 12/12/2017; Chest Single View dated 12/11/2017; Chest Single View dated 08/06/2016; Chest Single View dated 06/28/2016 FINDINGS: Portable technique limits examination quality. Mild interstitial pulmonary edema suspected. The heart is normal in size. No displaced fractures. IMPRESSION: Mild interstitial pulmonary edema.
[2018-02-12 19:09] LABS: Protime INR 0.99
--- NOTE | 2018-02-12 19:14 | RAD REPORT ---
EXAM DESCRIPTION: US - Extrem Venous W Compress Handy - 02/12/2018 7:02 pm CLINICAL HISTORY: Pain;Swelling Bilateral leg edema and swelling. COMPARISON: Extrem Venous W Compress Handy dated 12/11/2017 TECHNIQUE: Real-time sonographic interrogation of the left and right lower extremity deep venous sys tems was performed. FINDINGS: Normal compressibility, flow augmentation, phasic flow and spontaneous flow is identified in both the left and right lower extremity deep venous systems. IMPRESSION: No sonographic evidence of left or right lower extremity deep venous thrombosis.
--- NOTE | 2018-02-12 19:15 | RAD REPORT ---
EXAM DESCRIPTION: US - Lower Extremity Arterial Bilat - 02/12/2018 7:02 pm CLINICAL HISTORY: SWELLING Claudication COMPARISON: None TECHNIQUE: Bilateral lower extremity arterial Doppler examination was performed with edin tang. ABIs were not requested. FINDINGS: Triphasic waveforms are seen throughout both lower extremity arterial systems to the level of the giuliana salis pedis arteries. No significant flow abnormality detected. No stenosis or evidence of occlusion. IMPRESSION: No evidence of significant peripheral vascular disease.
[2018-02-12 19:36] LABS: Absolute Lymphocytes (CBC) 1.6 K/uL (0.7-4.9); Absolute Monocytes 0.7 K/uL (0.1-1.3); Absolute Neutrophil 3.7 K/uL (1.8-8.0); Basophils % 0.8 % (0-1.3); Eosinophils % 2.1 % (0-4.4); Hematocrit 28.8 % (36.0-45.0); MCH 31.6 pg (27.0-35.0); MCV 92.8 fL (80-100); MPV 9.5 fL (7.6-11.3); Monocytes % 10.9 % (3.3-12.3); RBC Red Blood Cell Count 3.11 M/uL (3.86-4.86)
[2018-02-12 19:50] LABS: ALT/SGPT 21 U/L (12-78); AST/SGOT 19 U/L (15-37); Albumin 3.6 g/dL (3.4-5.0); Alkaline Phosphatase 48 U/L (45-117); BUN Blood Urea Nitrogen 42 mg/dL (7-18); Bicarbonate 29 mmol/L (21-32); Bilirubin Direct 0.1 mg/dL (0-0.2); Bilirubin Total 0.6 mg/dL (0.2-1.0); Glucose Level 89 mg/dL (74-106); Magnesium 2.5 mg/dL (1.8-2.4); NT PRO-BNP 410 pg/mL (<450); Potassium 4.4 mmol/L (3.5-5.1); Protein, Total 7.2 g/dL (6.4-8.2); Sodium Level 140 mmol/L (136-145); Troponin (Emerg Dept Use Only) < 0.02 ng/mL (0.0-0.045)
[2018-02-12 19:53] LABS: Urine Blood NEGATIVE (NEG); Urine Glucose NEGATIVE (NEG); Urine Protein NEGATIVE (NEG)
[2018-02-12 19:58] LABS: Agglutinates, Cold (RBC Morph) NOTED
[2018-02-12 20:01] LABS: Blood Morphology Comment NOTED (NOT SEEN); Platelet Estimate ADEQ; Urine White Blood Cell Casts OK
[2018-02-12] MEDS ORDERED: VANCOMYCIN 1 GM/250 ML BAG ONE (20:04)
[2018-02-12] MEDS ORDERED: LORazepam 2 MG/ML VIAL ONE (20:18)
[2018-02-12] MEDS ORDERED: ONDANSETRON 4 MG/2 ML VIAL ONE (20:28)
--- NOTE | 2018-02-12 21:14 | RAD REPORT ---
EXAM DESCRIPTION: CT - Head Brain Wo Cont - 02/12/2018 8:56 pm CLINICAL HISTORY: SYNCOPE Fall, head injury COMPARISON: Head Brain Wo Cont dated 05/22/2016 TECHNIQUE: All CT scans are performed using dose optimization technique as appropriate and may inclu de automated exposure control or mA/KV adjustment according to patient size. FINDINGS: No intracranial hemorrhage, hydrocephalus or extra-axial fluid collection.No areas of brai n edema or evidence of midline shift. Fluid is present in the left mastoid air cell and middle ear. The paranasal sinuses and mastoids othe rwise clear. No depressed calvarial fractures. IMPRESSION: No acute intracranial abnormality. Suggest clinical correlation for possible left-sided otomastoiditis.
--- NOTE | 2018-02-12 21:28 | ER ---
Nurse's Notes [facility] Name: Joyce Ramírez Age: 82 yrs Sex: Female : 1935 Arrival Date: 02/12/2018 Time: 17:28 Bed 25 Private MD: Arthur Becerra Diagnosis: Cellulitis of left lower limb;Cellulitis of right lower limb;Syncope and collapse Presentation: 02/12 17:39 Presenting complaint: Patient states: "My legs are swelling and red and hot" States aj1 that she started feeling bad this last night, and today they noticed how red and swollen her legs are. Denies fever. Transition of care: patient was not received from another setting of care. Onset of symptoms was February 11, 2018. Risk Assessment: Do you want to hurt yourself or someone else? Patient reports no desire to harm self or others. Initial Sepsis Screen: Does the patient meet any 2 criteria? No. Patient's initial sepsis screen is negative. Does the patient have a suspected source of infection? Yes: Skin breakdown/wound. Care prior to arrival: None. 17:39 Method Of Arrival: Ambulatory aj 17:39 Acuity: BRITTANI 3 aj1 Triage Assessment: 17:44 General: Appears in no apparent distress. comfortable, Behavior is calm, cooperative, aj1 appropriate for age. Pain: Complains of pain in right leg and left leg. Pain: Pain currently is 5 out of 10 on a pain scale. Neuro: Level of Consciousness is awake, alert, obeys commands. Cardiovascular: Patient's skin is warm and dry. Respiratory: Airway is patent Respiratory effort is even, unlabored, Respiratory pattern is regular, symmetrical. Historical: - Allergies: 17:44 MONTSERRAT INHIBITORS; aj1 17:44 Aspirin; aj1 17:44 Beta-Blockers (Beta-Adrenergic Blocking Agts); aj1 17:44 CALCIUM CHANNEL BLOCKING AGENTS-PHENYLALKYLAMINES; aj1 17:44 Codeine; aj1 17:44 Doxycycline; aj1 17:44 Levofloxacin; aj1 17:44 PENICILLINS; aj1 17:44 Hkodfcz-Gta-Ksd Reductase Inhibitors; aj1 17:44 Sulfa (Sulfonamide Antibiotics); aj1 17:44 tolterodine; aj1 17:44 Demerol; aj1 - Home Meds: 17:44 CALCIUM 1500 MG daily [Active]; Fish Oil Oral 1200 mg daily [Active]; furosemide 80 mg aj1 Oral tab 1 tab once daily [Active]; hydralazine 25 mg Oral tab 1 tab daily [Active]; Iron CR 65 mg Oral daily [Active]; levothyroxine 112 mcg tab [Active]; magnesium oxide 500 mg Oral cap daily [Active]; omeprazole 20 mg Oral cpDR [Active]; pramipexole 1.5 mg Oral TbER 1 tab once daily [Active]; ropinirole 0.5 mg Oral tab 1 tab daily [Active]; Vitamin D Oral daily [Active]; - PMHx: 17:44 Anemia; Cellulitis; CHF; GERD; Hyperlipidemia; Hypertension; Hypothyroidism; aj1 - Immunization history:: Flu vaccine is not up to date. - Social history:: Smoking status: Patient/guardian denies using tobacco. - Ebola Screening: : Patient denies travel to an Ebola-affected area in the 21 days before illness onset. Screenin:36 Abuse screen: Denies threats or abuse. Nutritional screening: No deficits noted. la1 Tuberculosis screening: No symptoms or risk factors identified. Fall Risk No fall in past 12 months (0 pts). No secondary diagnosis (0 pts). IV access (20 points). Ambulatory Aid- None/Bed Rest/Nurse Assist (0 pts). Gait- Weak (10 pts.). Mental Status- Oriented to own ability (0 pts). Total Hollingsworth Fall Scale indicates Low Risk Score (25-44 pts). Family Present and informed to notify staff if they need to leave bedside. Assessment: 18:35 General: Appears in no apparent distress. Behavior is calm, cooperative. Pain: la1 Complains of pain in left leg and right leg. Neuro: Level of Consciousness is awake, alert, obeys commands, Oriented to person, place, time, situation. Cardiovascular: Heart tones S1 S2 present Capillary refill < 3 seconds Patient's skin is warm and dry. Respiratory: Airway is patent Respiratory effort is even, unlabored, Respiratory pattern is regular, symmetrical, Breath sounds are clear bilaterally. GI: No signs and/or symptoms were reported involving the gastrointestinal system. Derm: Rash noted that is cellulitis noted to HANDY lower extremities with swelling. Pt denies SOB, reports swelling has gotten worse over the last few days. Denies fevers. 19:15 General: Appears in no apparent distress. Behavior is calm, cooperative. Pain: rr5 Complains of pain in right and left lower leg Pain does not radiate. Pain currently is 5 out of 10 on a pain scale. Quality of pain is described as burning, Pain began gradually, Is intermittent. Neuro: Level of Consciousness is awake, alert, obeys commands, Oriented to person, place, time, situation. Cardiovascular: Heart tones S1 S2 present Capillary refill < 3 seconds Patient's skin is warm and dry. Respiratory: Airway is patent Respiratory effort is even, unlabored, Respiratory pattern is regular, symmetrical, Breath sounds are clear bilaterally. GI: No signs and/or symptoms were reported involving the gastrointestinal system. : No signs and/or symptoms were reported regarding the genitourinary system. EENT: No signs and/or symptoms were reported regarding the EENT system. Derm: Skin Skin temperature is warm Rash noted that is red, blisters and warm to touch Reports pain. 19:15 Musculoskeletal: Capillary refill < 3 seconds, Range of motion: intact in all rr5 extremities, Swelling present in right and left leg. 20:10 Reassessment: patient verbalized "I'm not feeling good" then had a blank stare and rr5 unarousable HR dropped to 30'S beat per minute. oxygen via non rebreather mask for 15L/minute position to high fowlers position, examined by arianna ELLSWORTH. heart rate tile picker within 10 seconds. 21:00 Reassessment: Patient appears in no apparent distress at this time. Patient and/or rr5 family updated on plan of care and expected duration. Pain level reassessed. shifted to nasal cannula maintaining O2 sat 98-100% Patient states symptoms have improved. 23:30 Reassessment: Patient appears in no apparent distress at this time. complaining of back rr5 pain morphine 2 mg/iv given from [employer] order. Vital Signs: 17:44 BP 128 / 59; Pulse 68; Resp 18; Temp 97.6; Pulse Ox 97% on R/A; Weight 82.55 kg (R); aj1 Height 5 ft. 4 in. (162.56 cm) (R); Pain 5/10; 19:15 BP 161 / 65; Pulse 73; Resp 18; Temp 97.9; Pulse Ox 96% on R/A; Pain 5/10; rr5 20:10 BP 160 / 90; Pulse 39; Resp 13; Pulse Ox 85% on 15% Non-rebreather mask; rr5 20:15 BP 150 / 57; Pulse 79; Resp 22; Pulse Ox 98% on Non-rebreather mask; rr5 20:30 BP 120 / 84; Pulse 78; Resp 18; Pulse Ox 99% on Non-rebreather mask; rr5 21:00 BP 108 / 48; Pulse 90; Resp 17; Pulse Ox 99% on 2 lpm NC; rr5 21:30 BP 137 / 95; Pulse 86; Resp 20; Pulse Ox 98% on 2 lpm NC; rr5 22:30 BP 120 / 43; Pulse 97; Resp 20; Pulse Ox 98% on 2 lpm NC; rr5 23:30 BP 131 / 60; Pulse 85; Resp 17; Pulse Ox 99% on 2 lpm NC; rr5 17:44 Body Mass Index 31.24 (82.55 kg, 162.56 cm) aj1 Edilberto Coma Score: 20:15 Eye Response: spontaneous(4). Verbal Response: oriented(5). Motor Response: obeys rr5 commands(6). Total: 15. ED Course: 17:28 Patient arrived in ED. mr 17:28 Marcy Drew MD is Private Physician. mr 17:28 Arthur Becerra MD is Private Physician. mr 17:42 Triage completed. aj1 17:44 Arm band placed on Patient placed in an exam room. aj1 17:46 Wilfrid Urbina, ISABELLA is Primary Nurse. la1 17:51 Luis Corcoran PA is PHCP. cp 17:51 Luis Doll MD is Attending Physician. cp 18:33 X-ray completed. Portable x-ray completed in exam room. Patient tolerated procedure ls3 well. 18:34 XRAY Chest (1 view) In Process Unspecified. EDMS 18:37 Patient taken to ultrasound. via wheelchair. aa4 18:37 Bed in low position. Call light in reach. Side rails up X 1. la1 18:37 Inserted saline lock: 20 gauge in right antecubital area, using aseptic technique. la1 Blood collected. 19:02 Ultrasound completed. Patient moved back from ultrasound. aa4 19:03 US Extremity Venous W Compression Handy In Process Unspecified. EDMS 19:03 US LE Arterial Bilateral In Process Unspecified. EDMS 19:28 Placed in gown. Side rails up X2. Adult w/ patient. Warm blanket given. Pillow given. mh5 cleaned and changed in dry clothing .. power operator on. Pulse ox on. NIBP on. 19:28 EKG done, by ED staff, reviewed by Luis Doll MD. mh5 20:35 Inserted saline lock: 20 gauge in left antecubital area, using aseptic technique. lp1 20:56 CT completed. Patient tolerated procedure well. Patient moved back from CT. nj 20:57 CT Head Brain wo Cont In Process Unspecified. EDMS 21:27 Juancarlos Clayton MD is Hospitalizing Provider. cp 22:20 Bladder scan completed. 103ml. rr5 23:58 No provider procedures requiring assistance completed. Patient admitted, IV remains in rr5 place. intact, No redness/swelling at site. 02/13 06:48 Primary Nurse role handed off by Wilfrid Urbina RN bd 07:24 Khadra Roche RN is Primary Nurse. hb 07:54 X-ray completed. Portable x-ray completed in exam room. Patient tolerated procedure jb2 well. Administered Medications: 02/12 20:28 Drug: Zofran 4 mg Route: IVP; Site: right antecubital; rr5 22:38 Follow up: Response: Marked relief of symptoms; Nausea is decreased rr5 23:55 Follow up: Response: No adverse reaction rr5 21:15 Drug: vancoMYCIN 1 grams Route: IVPB; Infused Over: 2 hrs; Site: left antecubital; rr5 23:15 Follow up: IV Status: Completed infusion; IV Intake: 250ml rr5 02/13 00:00 Follow up: Response: No adverse reaction rr5 Intake: 02/12 23:15 IV: 250ml; Total: 250ml. rr5 Outcome: 21:28 Decision to Hospitalize by Provider. cp 23:58 Admitted to ER Hold. Please see [facility] for further documentation. rr5 23:58 Condition: stable 23:58 Instructed on the need for admit. 02/13 10:30 Patient left the ED. aj1 Signatures: Dispatcher [employer] EDMS Bri Kennedy Angela, RN RN aj1 Ann-Marie Arnold Godwin Adame jb2 Falguni Liang Laura, RN RN lp1 Wilfrid Urbina RN RN la1 Luis Corcoran PA PA cp Baxter, Heather, RN RN Michael Daniel [facility] Samantha Faustin 3 Brandt Alejandra, RN RN rr5 Corrections: (The following items were deleted from the chart) 02/12 21:00 20:05 BP 160 / 90; Pulse 39bpm; Resp 13bpm; Pulse Ox 85% 02 15% Non-rebreather mask; rr5rr5
--- NOTE | 2018-02-12 21:29 | EDPHYS ---
Physician Documentation [facility] Name: Joyce Ramírez Age: 82 yrs Sex: Female : 1935 Arrival Date: 02/12/2018 Time: 17:28 Bed 25 Private MD: Arthur Becerra ED Physician Luis Doll HPI: 02/12 18:15 This 82 yrs old Female presents to ER via Ambulatory with complaints of Leg cp Swelling. 18:15 The patient presents with pain, that is acute, swelling, tenderness, erythema. The cp complaints affect the bilateral lower leg. 18:15 Onset: The symptoms/episode began/occurred yesterday. cp 18:15 Associated signs and symptoms: Pertinent positives: calf tenderness, swelling, warmth, cp Pertinent negatives fever, numbness. Treatment prior to arrival includes: no previous treatment. Historical: - Allergies: 17:44 MONTSERRAT INHIBITORS; aj1 17:44 Aspirin; aj1 17:44 Beta-Blockers (Beta-Adrenergic Blocking Agts); aj1 17:44 CALCIUM CHANNEL BLOCKING AGENTS-PHENYLALKYLAMINES; aj1 17:44 Codeine; aj1 17:44 Doxycycline; aj1 17:44 Levofloxacin; aj1 17:44 PENICILLINS; aj1 17:44 Hhjdktg-Mte-Jdm Reductase Inhibitors; aj1 17:44 Sulfa (Sulfonamide Antibiotics); aj1 17:44 tolterodine; aj1 17:44 Demerol; aj1 - Home Meds: 17:44 CALCIUM 1500 MG daily [Active]; Fish Oil Oral 1200 mg daily [Active]; furosemide 80 mg aj1 Oral tab 1 tab once daily [Active]; hydralazine 25 mg Oral tab 1 tab daily [Active]; Iron CR 65 mg Oral daily [Active]; levothyroxine 112 mcg tab [Active]; magnesium oxide 500 mg Oral cap daily [Active]; omeprazole 20 mg Oral cpDR [Active]; pramipexole 1.5 mg Oral TbER 1 tab once daily [Active]; ropinirole 0.5 mg Oral tab 1 tab daily [Active]; Vitamin D Oral daily [Active]; - PMHx: 17:44 Anemia; Cellulitis; CHF; GERD; Hyperlipidemia; Hypertension; Hypothyroidism; aj1 - Immunization history:: Flu vaccine is not up to date. - Social history:: Smoking status: Patient/guardian denies using tobacco. - Ebola Screening: : Patient denies travel to an Ebola-affected area in the 21 days before illness onset. ROS: 18:20 Constitutional: Negative for body aches, fever, poor PO intake. cp 18:20 Eyes: Negative for injury, pain, redness, and discharge. cp 18:20 ENT: Negative for drainage from ear(s), ear pain, sore throat, difficulty swallowing, difficulty handling secretions. 18:20 Cardiovascular: Positive for edema, Negative for chest pain, palpitations. 18:20 Respiratory: Negative for cough, shortness of breath, wheezing. 18:20 Abdomen/GI: Negative for abdominal pain, nausea, vomiting, and diarrhea. 18:20 Back: Negative for pain at rest, pain with movement. 18:20 Skin: Positive for erythema, of the left lower leg and right lower leg. 18:20 Neuro: Negative for altered mental status, headache, weakness. 18:20 All other systems are negative. Exam: 18:25 Constitutional: The patient appears in no acute distress, alert, awake, cp non-diaphoretic, non-toxic, well developed, well nourished. 18:25 Head/Face: Normocephalic, atraumatic. cp 18:25 Eyes: Periorbital structures: appear normal, Pupils: equal, round, and reactive to light and accomodation, Extraocular movements: intact throughout, Conjunctiva: normal, no exudate, no injection, Sclera: no appreciated abnormality, Lids and lashes: appear normal, bilaterally. 18:25 ENT: External ear(s): are unremarkable, Ear canal(s): cerumen impaction, that is moderate, occluding the left ear canal, Examination of the other ear shows no obvious abnormality, Nose: is normal, Mouth: Lips: moist, Oral mucosa: pink and intact, moist, Posterior pharynx: is normal, airway is patent, no erythema, no exudate, Voice: is normal. 18:25 Neck: ROM/movement: is normal, is supple, without pain, no range of motions limitations, no nuchal rigidity. 18:25 Chest/axilla: Inspection: normal, Palpation: is normal, no crepitus, no tenderness. 18:25 Cardiovascular: Rate: normal, Rhythm: regular, Pulses: Pulses are 1+ in right dorsalis pedis artery and left dorsalis pedis artery. Edema: 2+ edema to level of left lower leg and right lower leg, JVD: is not appreciated. 18:25 Respiratory: the patient does not display signs of respiratory distress, Respirations: normal, no use of accessory muscles, no retractions, no splinting, no tachypnea, labored breathing, is not present, Breath sounds: decreased breath sounds, that are mild, are located in both bases, wheezing: is not appreciated. 18:25 Abdomen/GI: Inspection: abdomen appears normal, Bowel sounds: normal, in all quadrants, Palpation: abdomen is soft and non-tender, in all quadrants. 18:25 Back: pain, is absent, ROM is normal. 18:25 Skin: cellulitis, that is moderate, well demarcated, on the left lower leg and right lower leg, noted multiple bullae left lower leg and right lower leg. 18:25 Neuro: Orientation: to person, place \T\ time. Mentation: is normal, Cerebellar function: is grossly normal, Motor: moves all fours, strength is normal, Sensation: is normal. 19:33 ECG was reviewed by the Attending Physician. cp Vital Signs: 17:44 BP 128 / 59; Pulse 68; Resp 18; Temp 97.6; Pulse Ox 97% on R/A; Weight 82.55 kg (R); aj1 Height 5 ft. 4 in. (162.56 cm) (R); Pain 5/10; 19:15 BP 161 / 65; Pulse 73; Resp 18; Temp 97.9; Pulse Ox 96% on R/A; Pain 5/10; rr5 20:10 BP 160 / 90; Pulse 39; Resp 13; Pulse Ox 85% on 15% Non-rebreather mask; rr5 20:15 BP 150 / 57; Pulse 79; Resp 22; Pulse Ox 98% on Non-rebreather mask; rr5 20:30 BP 120 / 84; Pulse 78; Resp 18; Pulse Ox 99% on Non-rebreather mask; rr5 21:00 BP 108 / 48; Pulse 90; Resp 17; Pulse Ox 99% on 2 lpm NC; rr5 21:30 BP 137 / 95; Pulse 86; Resp 20; Pulse Ox 98% on 2 lpm NC; rr5 22:30 BP 120 / 43; Pulse 97; Resp 20; Pulse Ox 98% on 2 lpm NC; rr5 23:30 BP 131 / 60; Pulse 85; Resp 17; Pulse Ox 99% on 2 lpm NC; rr5 17:44 Body Mass Index 31.24 (82.55 kg, 162.56 cm) aj1 Edilberto Coma Score: 20:15 Eye Response: spontaneous(4). Verbal Response: oriented(5). Motor Response: obeys rr5 commands(6). Total: 15. MDM: 17:52 Patient medically screened. cp 18:15 Differential diagnosis: sepsis, cellulitis, DVT, abscess, cardiac arrythmia. cp 21:23 Data reviewed: vital signs, nurses notes, lab test result(s), EKG, radiologic studies, cp CT scan, plain films, and as a result, I will admit patient. 21:23 Test interpretation: by ED physician or midlevel provider: ECG, plain radiologic cp studies. Counseling: I had a detailed discussion with the patient and/or guardian regarding: the historical points, exam findings, and any diagnostic results supporting the discharge/admit diagnosis, lab results, radiology results, the need for further work-up and treatment in the hospital. 21:26 Physician consultation: Juancarlos Clayton MD was called at 21:27, was contacted at 21:27, regarding admission, to the telemetry unit. patient's condition. 02/12 18:10 Order name: Basic Metabolic Panel 02/12 18:10 Order name: CBC with Diff; Complete Time: 20:09 02/12 19:52 Interpretation: RBC 3.11; HGB 9.8; HCT 28.8. 02/12 18:10 Order name: LFT's; Complete Time: 19:51 02/12 19:52 Interpretation: Normal except: GLOB 3.6; A/G 1.0. 02/12 18:10 Order name: Magnesium; Complete Time: 19:51 02/12 19:52 Interpretation: MG 2.5; Reviewed. 02/12 18:10 Order name: NT PRO-BNP; Complete Time: 19:51 02/12 18:10 Order name: PT-INR; Complete Time: 19:35 02/12 18:10 Order name: Troponin (emerg Dept Use Only); Complete Time: 19:51 02/12 18:10 Order name: Blood Culture Adult (2) cp 02/12 18:10 Order name: Procalcitonin; Complete Time: 19:51 02/12 18:10 Order name: Lactate; Complete Time: 19:35 02/12 18:10 Order name: Basic Metabolic Panel; Complete Time: 19:51 EDMS 02/12 19:52 Interpretation: Normal except: BUN 42; CRE 1.60; GFR 31. cp 02/12 19:34 Order name: Urine Dipstick--Ancillary (enter results); Complete Time: 20:09 ms 02/12 19:38 Order name: CBC Smear Scan; Complete Time: 20:09 EDMS 02/12 20:12 Order name: Wound Culture 02/12 18:10 Order name: XRAY Chest (1 view); Complete Time: 19:35 02/12 18:10 Order name: EKG; Complete Time: 18:11 02/12 18:10 Order name: US Extremity Venous W Compression Handy; Complete Time: 19:35 02/12 18:10 Order name: US LE Arterial Bilateral; Complete Time: 19:35 02/12 20:12 Order name: CT Head Brain wo Cont; Complete Time: 21:19 02/12 21:41 Order name: Echo with Doppler EDMS 02/12 21:41 Order name: Vancomycin Peak EDMS 02/12 21:41 Order name: Vancomycin Level Trough EDMS 02/12 21:41 Order name: Carotid Artery Bilateral EDMS 02/13 05:33 Order name: CBC with Automated Diff EDMS 02/13 05:55 Order name: Comprehensive Metabolic Panel EDMS 02/13 06:14 Order name: Manual Differential EDMS 02/13 09:06 Order name: RAD EDMS 02/13 09:06 Order name: RAD EDMS 02/12 18:10 Order name: Cardiac monitoring; Complete Time: 19:23 02/12 18:10 Order name: EKG - Nurse/Tech; Complete Time: 19:24 02/12 18:10 Order name: IV Saline Lock; Complete Time: 18:37 02/12 18:10 Order name: Labs collected and sent; Complete Time: 18:37 02/12 18:10 Order name: O2 Per Protocol; Complete Time: 18:37 02/12 18:10 Order name: O2 Sat Monitoring; Complete Time: 18:37 cp 02/12 21:28 Order name: Urine Dipstick-Ancillary (obtain specimen); Complete Time: 23:39 cp 02/12 21:41 Order name: CONS Pharmacy Consult EDMS 02/12 21:41 Order name: CONS Physician Consult EDMS EC:33 Rate is 75 beats/min. Rhythm is regular. IN interval is normal. QRS interval is normal. cp QT interval is normal. Interpreted by me. Reviewed by me. Administered Medications: 20:28 Drug: Zofran 4 mg Route: IVP; Site: right antecubital; rr5 22:38 Follow up: Response: Marked relief of symptoms; Nausea is decreased rr5 23:55 Follow up: Response: No adverse reaction rr5 21:15 Drug: vancoMYCIN 1 grams Route: IVPB; Infused Over: 2 hrs; Site: left antecubital; rr5 23:15 Follow up: IV Status: Completed infusion; IV Intake: 250ml rr5 02/13 00:00 Follow up: Response: No adverse reaction rr5 Disposition: 02/14 07:21 Co-signature as Attending Physician, Luis Doll MD I agree with the assessment and james plan of care. Disposition: 02/12/18 21:28 Hospitalization ordered by Juancarlos Clayton for Inpatient Admission. Preliminary diagnosis are Cellulitis of left lower limb, Cellulitis of right lower limb, Syncope and collapse. - Bed requested for Telemetry/MedSurg (Inpatient). - Status is Inpatient Admission. aj1 - Condition is Stable. - Problem is new. - Symptoms have improved. UTI on Admission? No Signatures: Dispatcher [employer] EDNV Angeline Royal RN RN aj1 Nenita Chapin RN RN mw Woody, Diana, RN RN dw Anderson, Corey, MD MD cha Page, Corey, PA PA cp Knox, Taylor, RN RN tl2 Brandt Alejandra RN RN rr5 Corrections: (The following items were deleted from the chart) 02/12 21:59 21:28 Hospitalization Ordered by Juancarlos Clayton MD for Inpatient Admission. Preliminary diagnosis is Cellulitis of left lower limb; Cellulitis of right lower limb; Syncope and collapse. Bed requested for Telemetry/MedSurg (Inpatient). Status is Inpatient Admission. Condition is Stable. Problem is new. Symptoms have improved. UTI on Admission? No. cp 02/13 09:18 02/12 21:59 02/12/2018 21:28 Hospitalization Ordered by Juancarlos Clayton MD for Inpatient dw Admission. Preliminary diagnosis is Cellulitis of left lower limb; Cellulitis of right lower limb; Syncope and collapse. Bed requested for [facility] ER HOLD. Status is Inpatient Admission. Condition is Stable. Problem is new. Symptoms have improved. UTI on Admission? No. mw 02/13 10:30 09:18 02/12/2018 21:28 Hospitalization Ordered by Juancarlos Clayton MD for Inpatient aj1 Admission. Preliminary diagnosis is Cellulitis of left lower limb; Cellulitis of right lower limb; Syncope and collapse. Bed requested for Telemetry/MedSurg (Inpatient). Status is Inpatient Admission. Condition is Stable. Problem is new. Symptoms have improved. UTI on Admission? No. dw
[2018-02-12] MEDS ORDERED: Pharmacy Consult 1 EA XX PRN (21:39)
[2018-02-12] MEDS ORDERED: ACETAMINOPHEN 500 MG TAB PO PRN (23:02)
[2018-02-12] MEDS ORDERED: ONDANSETRON 4 MG/2 ML VIAL IV PRN (23:02)
[2018-02-12] MEDS ORDERED: MORPHINE 2 MG/ML SYR IV PRN (23:02)
[2018-02-12] MEDS: NA CHLORIDE 0.9% 1,000 ML IV SCH (23:45)
[2018-02-12] MEDS ORDERED: VANCOMYCIN 1.25 GM in NA CHLORIDE 0.9% 250 ML IVPB SCH (23:45)
[2018-02-12] MEDS ORDERED: MORPHINE 2 MG/ML SYR ONE (23:49)
[2018-02-12] MEDS ORDERED: NA CHLORIDE 0.9% 1,000 ML ONE (23:49)
[2018-02-13] MEDS ORDERED: VANCOMYCIN 500 MG in NA CHLORIDE 0.9% 100 ML IVPB ONE (01:15)
[2018-02-13] MEDS ORDERED: VANCOMYCIN 1 GM/VIAL ONE (03:58)
[2018-02-13] MEDS ORDERED: NA CHLORIDE 0.9% 100 ML IV ONE (04:00)
[2018-02-13] MEDS ORDERED: DEXAMETHASONE 10 MG/ML VIAL IV ONE (04:01)
[2018-02-13] MEDS ORDERED: ROPINIROLE HCL 0.25 MG TAB PO ONE (04:02)
[2018-02-13] MEDS ORDERED: TRAMADOL HCL 50 MG TAB ONE (04:12)
[2018-02-13] MEDS ORDERED: ACETAMINOPHEN 500 MG TAB ONE ×2 (04:18→09:49)
[2018-02-13] MEDS ORDERED: DEXAMETHASONE 4 MG/ML VIAL ONE (04:18)
[2018-02-13 05:26] LABS: Absolute Lymphocytes (CBC) 0.4 K/uL (0.7-4.9); Basophils % 0.1 % (0-1.3); Hematocrit 26.6 % (36.0-45.0); MCH 33.5 pg (27.0-35.0); Monocytes % 7.2 % (3.3-12.3); RBC Red Blood Cell Count 2.74 M/uL (3.86-4.86)
[2018-02-13] MEDS ORDERED: ROPINIROLE HCL 0.25 MG TAB ONE (05:28)
[2018-02-13 05:53] LABS: Albumin 3.2 g/dL (3.4-5.0); Bilirubin Total 0.7 mg/dL (0.2-1.0); Potassium 4.1 mmol/L (3.5-5.1); Protein, Total 6.2 g/dL (6.4-8.2)
[2018-02-13 06:12] LABS: Blood Morphology Comment NOT SEEN (NOT SEEN); Platelet Estimate ADEQ
[2018-02-13] MEDS ORDERED: LEVOTHYROXINE SOD 0.112 MG TAB PO SCH ×2 (06:30)
[2018-02-13] MEDS ORDERED: LEVOTHYROXINE SOD 0.1 MG TAB ONE (07:26)
--- NOTE | 2018-02-13 07:34 | EKG ---
Test Date: 2018-02-12 Test Time: 19:20:37 Casino Slot Supervisor: MARYANN MEASUREMENT RESULTS: Intervals: Rate: 75 NM: 154 QRSD: 84 QT: 386 QTc: 431 [place]: P: 54 NM: 154 QRS: 40 T: 60 INTERPRETIVE STATEMENTS: Normal sinus rhythm Normal ECG Compared to ECG 12/11/2017 11:58:25 Left ventricular hypertrophy no longer present ST (T wave) deviation no longer present Electronically Signed On 02-13-18 07:33:36 MECHANIC WELDER TRUCK DRIVER by Haroon Rich
--- NOTE | 2018-02-13 07:34 | EKG ---
Test Date: 2018-02-12 Test Time: 21:08:45 Rheumatologist: RR MEASUREMENT RESULTS: Intervals: Rate: 89 [place]: 152 QRSD: 84 QT: 372 QTc: 452 [place]: P: 64 [place]: 152 QRS: 40 T: 30 INTERPRETIVE STATEMENTS: Normal sinus rhythm Nonspecific ST abnormality Abnormal ECG Compared to ECG 02/12/2018 20:21:20 Sinus tachycardia no longer present Possible ischemia no longer present ST (T wave) deviation still present Electronically Signed On 02-13-18 07:33:13 BUSINESS FUNCTIONAL ANALYST by Haroon Rich
--- NOTE | 2018-02-13 07:34 | EKG ---
Test Date: 2018-02-12 Test Time: 20:21:20 Air Export Operations Agent: NATHAN MEASUREMENT RESULTS: Intervals: Rate: 77 [place]: QRSD: 78 QT: 388 QTc: 439 [place]: P: [place]: QRS: 63 T: 30 INTERPRETIVE STATEMENTS: Sinus tachycardia with 2nd degree AV block ([place]ob[place] I) ST & T wave abnormality, consider inferior ischemia Abnormal ECG Compared to ECG 02/12/2018 19:20:37 ST (T wave) deviation now present Possible ischemia now present Sinus rhythm no longer present Electronically Signed On 02-13-18 07:33:30 MUNICIPAL ENGINEER by Haroon Rich
[2018-02-13] MEDS ORDERED: INFLUENZA VACCINE (for 3y+) 0.5 ML DOSE IMVAC ONE (08:00)
--- NOTE | 2018-02-13 08:56 | P.HP ---
Certification for Inpatient Patient admitted to: Inpatient With expected LOS: >2 Midnights Patient will require the following post-hospital care: None Practitioner: I am a practitioner with admitting privileges, knowledge of patient current condition, hospital course, and medical plan of care. Services: Services provided to patient in accordance with Admission requirements found in Title 42 Section 412.3 of the Code of Federal Regulations Patient History Date of Service: 02/12/18 Reason for admission: Bilateral lower extremity cellulitis/bullous lesions on the legs/syncope History of Present Illness: Patient is an 82-year-old female who came into the hospital with bilateral lower extremity cellulitis. She appears to have what looks like bullous lesions on the legs. Patient has a history of lymphedema, but in this setting she is not going to be able to adequately treat the lymphedema with the wraps. Patient also has been having hip pain. While she was in the emergency room she also passed out. According to the daughter she stared into the ceiling and her she appeared to stiffen. She became unresponsive at that time. Decision was made to admit the patient to the hospital. Allergies aspirin Allergy (Intermediate, Verified 06/28/16 08:13) Nausea/Vomiting codeine Allergy (Intermediate, Verified 06/28/16 08:13) Nervousness, can't sleep Penicillins Allergy (Intermediate, Verified 06/28/16 08:13) diarrhea Faokjyv-Ynu-Fjd Reductase Inhibitor Allergy (Intermediate, Verified 02/13/18 01: 37) restless leg syndrome Sulfa (Sulfonamide Antibiotics) Allergy (Intermediate, Verified 06/28/16 08:13) Dizziness, hallucinations MONTSERRAT Inhibitors Allergy (Verified 02/13/18 01:35) Anaphylaxis levofloxacin Allergy (Verified 02/13/18 01:38) Shortness of breath tolterodine Allergy (Verified 02/13/18 01:37) ankle swelling and frequent urinating Beta-Blockers (Beta-Adrenergic Bloc Adverse Reaction (Verified 06/28/16 08:13) unknown Calcium Channel Blocking Agents-Dih Adverse Reaction (Verified 06/28/16 08:13) nervousness doxycycline Adverse Reaction (Verified 02/13/18 01:38) severe headache metolazone Adverse Reaction (Verified 02/13/18 01:39) severe back pain Home Medications: Calcium Carbonate [Calcium] 1,500 mg PO DAILY 08/06/16 Cholecalciferol (Vitamin D3) [Vitamin D 400 IU TAB*] 800 unit PO DAILY 08/06/16 Ferrous Sulfate [Iron] 325 mg PO DAILY 08/06/16 Furosemide 80 mg PO DAILY 08/06/16 Hydralazine [Apresoline*] 25 mg PO DAILY 08/06/16 Magnesium Oxide [Magnesium] 1 tab PO DAILY 08/06/16 [place]-3 Fatty Acids [Fish Oil] 1,200 mg PO DAILY 08/06/16 Pramipexole Di-HCl [Pramipexole ER] 1.5 mg PO DAILY 08/06/16 Tramadol HCl [Ultram] 50 mg PO TID PRN 08/06/16 Levothyroxine [Synthroid] 112 mcg PO [id number] 12/11/17 Omeprazole 20 mg PO DAILY 12/11/17 Ropinirole HCl [Requip] 0.5 mg PO BEDTIME 12/11/17 - Past Medical/Surgical History Has patient received pneumonia vaccine in the past: Yes Diabetic: No -: Hypertension -: Hypothyroidism -: Edema to the lower extremities -: Venous insufficiency -: Restless leg syndrome -: GERD -: Urinary incontinence -: CHF, likely diastolic dysfunction -: Hysterectomy -: Bilateral oophorectomy -: Left breast cyst removed -: Total right knee replacement -: Cataract surgery Psychosocial/ Personal History: Patient is , she has 3 children. She does not work. She lives by herself but near family. - Family History Sister Medical History: Lung disease Father Medical History: Heart disease Mother Medical History: Hypertension - Social History Smoking Status: Never smoker Alcohol use: No CD- Drugs: No Caffeine use: No Place of Residence: Home Review of Systems 10-point ROS is otherwise unremarkable Physical Examination - Vital Signs Temperature: 98.7 F Blood Pressure: 139/68 Pulse: 63 Respirations: 16 Pulse Ox (%): 100 - Physical Exam General: Alert, In no apparent distress, Oriented x3 HEENT: Atraumatic, Normocephalic, PERRLA, Mucous membr. moist/pink Neck: Supple, 2+ carotid pulse no bruit, JVD not distended, No Thyromegaly Respiratory: Clear to auscultation bilaterally, Normal air movement Cardiovascular: Regular rate/rhythm, Normal S1 S2, No murmurs Gastrointestinal: Normal bowel sounds, Soft and benign, Non-distended, No tenderness Musculoskeletal: No clubbing, No swelling, No contractures Integumentary: Rash(es), Tenderness/swelling, Other (bullous appearing lesions) Neurological: Normal gait, Normal speech, Normal strength at 5/5 x4 extr, Normal tone, Sensation intact, Cranial nerves 3-12 intact - Studies Laboratory Data (last 24 hrs) 02/12/18 11:15: PT 11.7, INR 0.99 02/12/18 11:15: WBC 6.2, Hgb 9.8 L, Hct 28.8 L, Plt Count 215 02/12/18 11:15: Sodium 140, Potassium 4.4, BUN 42 H, Creatinine 1.60 H, Glucose 89, Magnesium 2.5 H, Total Bilirubin 0.6, AST 19, ALT 21, Alkaline Phosphatase 48 Assessment & Plan - Problems (Diagnosis) (1) Cellulitis Onset Date: 05/24/16 Current Visit: No Status: Acute Qualifiers: Site of cellulitis: extremity Site of cellulitis of extremity: lower extremity Laterality: unspecified laterality Qualified Code(s): L03.119 - Cellulitis of unspecified part of limb (2) Lichen planus pemphigoides Current Visit: No Status: Acute (3) Lymphedema Current Visit: Yes Status: Acute (4) Chronic renal disease Onset Date: 06/28/16 Current Visit: No Status: Chronic Qualifiers: Chronic kidney disease stage: stage 2 (mild) Qualified Code(s): N18.2 - Chronic kidney disease, stage 2 (mild) (5) Hypertension Onset Date: 05/24/16 Current Visit: No Status: Chronic Qualifiers: Hypertension type: essential hypertension (6) Hypothyroidism Onset Date: 06/28/16 Current Visit: No Status: Chronic Qualifiers: Hypothyroidism type: acquired Qualified Code(s): E03.9 - Hypothyroidism, unspecified (7) Venous insufficiency (chronic) (peripheral) Onset Date: 06/28/16 Current Visit: No Status: Chronic - Plan 1. Continue with IV antibiotic 2. Continue with local wound care 3. [facility] consultation 4. Gentle IV hydration 5. Monitor CBC 6. Echo, carotid Doppler, and EEG 7. Pain control 8. GI and DVT prophylaxis Discharge Plan: Home Plan to discharge in: 48 Hours - Advance Directives Does patient have a Living Will: No Does patient have a Durable POA for Healthcare: No - Code Status/Comfort Care Code Status Assessed: Yes Code Status: Full Code Critical Care: No Time Spent Managing PTS Care (In Minutes): 50
[2018-02-13] MEDS: PRAMIPEXOLE DI HCL 1.5 MG PO SCH (09:00)
--- NOTE | 2018-02-13 09:00 | RAD REPORT ---
EXAM DESCRIPTION: US - CP - 02/13/2018 7:34 am CLINICAL HISTORY: syncope TIA/CVA COMPARISON: No comparisons TECHNIQUE: Real-time sonographic evaluation of both carotid systems was performed. Doppler interroga tion was performed with waveform tracing bilaterally. FINDINGS: Normal high resistance waveforms are noted in both external carotid arteries. The common c arotid arteries and internal carotid arteries show normal low resistance waveforms. Mild hard plaquing is seen in both carotid bulbs. Peak systolic and end diastolic velocity values and the ICA/CCA ratios are in the non-hemodynamically significant range. Antegrade flow seen in both vertebral arteries. IMPRESSION: Mild hard plaquing is seen in both carotid bulbs. No evidence of a hemodynamically significant stenosis.
--- NOTE | 2018-02-13 09:06 | RAD REPORT ---
EXAM DESCRIPTION: RAD - Hip Bilateral With Pelvis - 02/13/2018 7:57 am CLINICAL HISTORY: Pain Swelling COMPARISON: No comparisons FINDINGS: Mild osteoarthritic changes are present in both hips. No fracture, dislocation or evidence of AVN.
--- NOTE | 2018-02-13 09:06 | RAD REPORT ---
EXAM DESCRIPTION: RAD - Chest Single View - 02/13/2018 7:58 am CLINICAL HISTORY: CHF Chest pain. COMPARISON: Chest Single View dated 02/12/2018; Chest Single View dated 12/12/2017; Chest Single View dated 12/11/2017; Chest Single View dated 08/06/2016 FINDINGS: Portable technique limits examination quality. Mild interstitial pulmonary edema is present. The heart is upper limit normal size. No displaced frac tures.Aortic atherosclerosis. IMPRESSION: Mild CHF versus volume overload pattern.
[2018-02-13] MEDS: NA CHLORIDE 0.9% 1,000 ML IV SCH (09:45)
[2018-02-13] MEDS: FUROSEMIDE 40 MG TABLET PO SCH (12:05)
[2018-02-13] MEDS: DOCOSAHEXANOIC AC/EPA 1000 MG PO SCH (12:05)
[2018-02-13] MEDS: FERROUS SULFATE 325 MG TAB PO SCH (12:06)
[2018-02-13] MEDS: VITAMIN D 400 UNIT TAB PO SCH (12:06)
[2018-02-13] MEDS: MAGNESIUM OXIDE 400 MG TAB PO SCH (12:06)
[2018-02-13] MEDS: HYDRALAZINE HCL 25 MG TABLET PO SCH (12:06)
[2018-02-13] MEDS: CALCIUM CARBONATE 500 MG TAB PO SCH (12:06)
[2018-02-13] MEDS: PANTOPRAZOLE 40MG TABLET PO SCH (12:07)
--- NOTE | 2018-02-13 15:54 | ECHO ---
HEIGHT: 5 ft 3 in WEIGHT: 188 lb 8 oz DATE OF STUDY: 02/13/[address]: Haroon Rich MD 2-DIMENSIONAL: YES M.MODE: YES DOPPLER: YES COLOR FLOW: YES TDS: NO PORTABLE: NO DEFINITY: NO BUBBLE STUDY: NO DIAGNOSIS: SYNCOPE CARDIAC HISTORY: CATHERIZATION: NO SURGERY: NO PROSTHETIC VALVE: NO PACEMAKER: NO MEASUREMENTS (cm) DIASTOLIC (NORMALS) SYSTOLIC (NORMALS) IVSd 1.0 (0.6-1.2) LA Diam 4.2 (1.9-4.0) LVEF 57% LVIDd 4.1 (3.5-5.7) LVIDs 2.9 (2.0-3.5) %FS 29% LVPWd 1.1 (0.6-1.2) Ao Diam 2.8 (2.0-3.7) 2 DIMENSIONAL ASSESSMENT: RIGHT ATRIUM: NORMAL LEFT ATRIUM: DILATED RIGHT VENTRICLE: NORMAL LEFT VENTRICLE: NORMAL TRICUSPID VALVE: NORMAL MITRAL VALVE: MITRAL ANNULAR CALCIFICATION PULMONIC VALVE: NORMAL AORTIC VALVE: SCLEROSIS PERICARDIAL EFFUSION: NONE AORTIC ROOT: NORMAL LEFT VENTRICULAR WALL MOTION: NORMAL. DOPPLER/COLOR FLOW: MILD TRICUSPID REGURGITATION. ESTIMATED RIGHT VENTRICULAR SYSTOLIC PRESSURE 56mmHg (MODERATE PULMONARY HYPERTENSION). NO AORTIC STENOSIS OR AORTIC REGURGITATION. COMMENTS: NORMAL LEFT VENTRICULAR EJECTION FRACTION. DILATED LEFT ATRIUM. MITRAL ANNULAR CALCIFICATION. AORTIC SCLEROSIS WITH NO AORTIC STENOSIS OR AORTIC REGURGITATION. MILD TRICUSPID REGURGITATION. MODERATE PULMONARY HYPERTENSION. TECHNOLOGIST: MATIAS MANCUSO
--- NOTE | 2018-02-13 15:57 | CON ---
An 82-year-old woman. Attending Physician: Dr. Becerra. History Of Present Illness: Pain in her legs, redness and swelling and she appears to have celluliti s as she has had numerous times in the past. Reason for cardiology consult is an episode of near syn cope. She was hooked up to a monitor. She was in the ER. She said she did not feel good heart rate was in the 30s, lasted less than a minute. Apparently, according to the notes from the ER, I do not see any rhythm strips. She came out of it and then was neurologically intact. She has not had sync ope before. She has had many episodes of cellulitis of her legs. Her legs have cutaneous changes of chronic venous insufficiency and I believe she has had several hospital visits for similar things. One of her first ones was in 2016 and 2017, 6 hospital visits. I think most of those were for cellul itis. The patient has dementia, edema, chronic venous insufficiency, iron deficiency anemia, hypothy roidism, gastroesophageal reflux disease, hypertension. Outpatient Medications: Tramadol, ferrous sulfate, magnesium oxide, calcium carbonate, furosemide, p ramipexole, hydralazine, vitamin D3, omeprazole, levothyroxine, and ropinirole. Physical Examination: Vital Signs: 5 feet 4 inches, 181 pounds. Blood pressure 139/68, temperature 98.7, heart rate 63. General: She is obese, alert, oriented. She is slow to speak. Her speech is extremely slow. Usual ly her daughter will interrupt and finish sentences for her present. Lungs: Clear. There is no carotid bruit. Heart: Within normal limits. Laboratory Data: An echocardiogram has not been done. A carotid Doppler reveals no significant sten osis. Impression: The patient has cellulitis and may have made her blood pressure low. It looks like she probably had a vasovagal reaction while in the ER and that made her have a few tonoclonic motions. I think a neurologist is to see her about this as well. We did not see any arrhythmia that would make us recommend putting in a pacemaker. Her procalcitonin level is less than 0.05. Lactic acid level is low at 0.7. Creatinine 1.36. I think Mrs. Ramírez is at no risk of having any significant bradycar soni. I would recommend we reinstitute her usual diuretics, stop the IV fluid. Resume most of her me dications. Continue to monitor to see if she has any arrhythmia that would warrant a pacemaker. CHAI/NAYELY Voice ID: [id number] Report ID: [id number]
[2018-02-13] MEDS: TRAMADOL HCL 50 MG TAB PO PRN (17:30)
--- NOTE | 2018-02-13 18:52 | P.PN ---
Subjective Date of Service: 02/13/18 Primary Care Provider: Dr. Becerra Chief Complaint: Bilateral lower extremity cellulitis/bullous lesions on the legs/syncope Subjective: Improving Physical Examination - Vital Signs Temperature: 98.5 F Blood Pressure: 140/63 Pulse: 70 Respirations: 20 Pulse Ox (%): 100 - Physical Exam General: Alert, In no apparent distress, Oriented x3, Cooperative HEENT: Atraumatic Neck: Supple Respiratory: Diminished (Bilateral but improved) Cardiovascular: Normal pulses, Regular rate/rhythm Gastrointestinal: Normal bowel sounds, Soft and benign, Non-distended, No tenderness, No masses, No rebound, No guarding Integumentary: Other (Erythema, swelling to the lower extremities bilateral noted) Neurological: Normal speech, Normal strength at 5/5 x4 extr, Normal tone, Normal affect - Studies Laboratory Data (last 24 hrs) 02/12/18 11:15: PT 11.7, INR 0.99 02/12/18 11:15: WBC 6.2, Hgb 9.8 L, Hct 28.8 L, Plt Count 215 02/12/18 11:15: Sodium 140, Potassium 4.4, BUN 42 H, Creatinine 1.60 H, Glucose 89, Magnesium 2.5 H, Total Bilirubin 0.6, AST 19, ALT 21, Alkaline Phosphatase 48 Medications List Reviewed: Yes Assessment & Plan Discharge Plan: Home Plan to discharge in: 48 Hours Physician Review Additional Text: Impression: Bilateral lower extremity cellulitis complicated with chronic lymphedema Shortness of breath secondary to acute on chronic diastolic CHF with moderate pulmonary hypertension Hypothyroidism Chronic renal disease, stage 3 Anemia likely of chronic disease Syncope Plan: Bilateral lower extremity cellulitis complicated with chronic lymphedema: Will continue with IV antibiotic therapy. Pharmacy to monitor and adjust per renal function. Will continue with diuresis. Spoke with her PCP Dr. Becerra who will take over the patient. Family is in agreement. Patient will need to continue with a 1500 cc per day fluid restriction and diuresis. This can be further addressed and monitored by her PCP and cardiology. Shortness of breath secondary to acute on chronic diastolic CHF with moderate pulmonary hypertension: Will hold IV fluids at this time. Will continue with Lasix. Echocardiogram shows moderate pulmonary hypertension. Will monitor on telemetry for abnormality. Cardiology to assess medications and evaluation of patient Hypothyroidism: Continue with medication Chronic renal disease, stage 3: Will monitor closely. Patient will likely require evaluation as an outpatient. Anemia likely of chronic disease: Continue monitor closely. Syncope: There was reports of syncope. No indication at this time. Will monitor closely. Monitor on telemetry. Patient may require neurology evaluation if this persists. Time Spent Managing Pts Care (In Minutes): 55
[2018-02-13] MEDS: ROPINIROLE HCL 1 MG TAB PO SCH (20:52)
[2018-02-14] MEDS: TRAMADOL HCL 50 MG TAB PO PRN ×2 (01:30→18:00)
[2018-02-14 05:44] LABS: Magnesium 2.2 mg/dL (1.8-2.4)
[2018-02-14] MEDS: LEVOTHYROXINE SOD 0.1 MG TAB PO SCH (05:45)
[2018-02-14] MEDS: PRAMIPEXOLE DI HCL 1.5 MG PO SCH (09:00)
[2018-02-14] MEDS: FUROSEMIDE 40 MG TABLET PO SCH (09:00)
[2018-02-14] MEDS: FERROUS SULFATE 325 MG TAB PO SCH (09:00)
--- NOTE | 2018-02-14 09:10 | RAD REPORT ---
EXAM DESCRIPTION: Ramya Schmidt And Lan (2 Views)02/14/2018 7:57 am CLINICAL HISTORY: Shortness of breath COMPARISON: February 13 FINDINGS: Mild bilateral pulmonary opacities are unchanged. The heart is mildly enlarged IMPRESSION: No change in mild CHF
[2018-02-14] MEDS ORDERED: FUROSEMIDE 20 MG TABLET ONE (09:22)
[2018-02-14] MEDS: CALCIUM CARBONATE 500 MG TAB PO SCH (09:23)
[2018-02-14] MEDS: MAGNESIUM OXIDE 400 MG TAB PO SCH (09:23)
[2018-02-14] MEDS: PANTOPRAZOLE 40MG TABLET PO SCH (09:23)
[2018-02-14] MEDS: DOCOSAHEXANOIC AC/EPA 1000 MG PO SCH (09:23)
[2018-02-14] MEDS: VITAMIN D 400 UNIT TAB PO SCH (09:24)
[2018-02-14] MEDS: HYDRALAZINE HCL 25 MG TABLET PO SCH (09:25)
[2018-02-14] MEDS: ENOXAPARIN 80 MG/0.8 ML SQ SCH (12:58)
[2018-02-14] MEDS ORDERED: VANCOMYCIN 1.5 GM in NA CHLORIDE 0.9% 500 ML IVPB SCH (13:00)
--- NOTE | 2018-02-14 13:56 | P.PN ---
Subjective Date of Service: 02/14/18 Primary Care Provider: Dr. Becerra Chief Complaint: Bilateral lower extremity cellulitis/bullous lesions on the legs/syncope Subjective: No new changes Review of Systems 10-point ROS is otherwise unremarkable General: Weakness Cardiovascular: Edema (improved from yesterday) Physical Examination - Vital Signs Temperature: 99.2 F Blood Pressure: 163/74 Pulse: 75 Respirations: 18 Pulse Ox (%): 98 - Physical Exam General: Alert, In no apparent distress HEENT: Atraumatic, PERRLA, EOMI Neck: Supple, JVD not distended Respiratory: Clear to auscultation bilaterally, Normal air movement Cardiovascular: Regular rate/rhythm, Normal S1 S2 Gastrointestinal: Normal bowel sounds, No tenderness Musculoskeletal: No tenderness Integumentary: No rashes Neurological: Normal speech, Normal tone, Normal affect Lymphatics: No axilla or inguinal lymphadenopathy - Studies Medications List Reviewed: Yes Assessment & Plan - Problems (Diagnosis) (1) CHF (congestive heart failure) Onset Date: 06/28/16 Current Visit: No Status: Acute Plan: Not much diuresis. However clinically improved. She is having occasional wheezing per the patient. However not on examination. Will have her start ambulating with PT. Plans for discharge in the morning Qualifiers: Heart failure type: diastolic Heart failure chronicity: acute on chronic Qualified Code(s): I50.33 - Acute on chronic diastolic (congestive) heart failure (2) Chronic renal disease, stage 3, moderately decreased glomerular filtration rate (GFR) between 30-59 mL/min/1.73 square meter Current Visit: Yes Status: Acute Plan: Patient is stable. Will continue to monitor creatine (3) Cellulitis Onset Date: 05/24/16 Current Visit: No Status: Acute Plan: Improving with diuresis. Can switch to oral antibiotics Qualifiers: Site of cellulitis: extremity Site of cellulitis of extremity: lower extremity Laterality: unspecified laterality Qualified Code(s): L03.119 - Cellulitis of unspecified part of limb (4) Hypertension Onset Date: 05/24/16 Current Visit: No Status: Chronic Plan: stable. Will observe and adjust medications accordingly Qualifiers: Hypertension type: essential hypertension (5) Hypothyroidism Onset Date: 06/28/16 Current Visit: No Status: Chronic Qualifiers: Hypothyroidism type: acquired Qualified Code(s): E03.9 - Hypothyroidism, unspecified Discharge Plan: Home Plan to discharge in: 24 Hours - Code Status/Comfort Care Code Status Assessed: No Code Status: Full Code Physician Review Additional Text: Impression: Bilateral lower extremity cellulitis complicated with chronic lymphedema Shortness of breath secondary to acute on chronic diastolic CHF with moderate pulmonary hypertension Hypothyroidism Chronic renal disease, stage 3 Anemia likely of chronic disease Syncope Plan: Bilateral lower extremity cellulitis complicated with chronic lymphedema: Will continue with IV antibiotic therapy. Pharmacy to monitor and adjust per renal function. Will continue with diuresis. Spoke with her PCP Dr. Becerra who will take over the patient. Family is in agreement. Patient will need to continue with a 1500 cc per day fluid restriction and diuresis. This can be further addressed and monitored by her PCP and cardiology. Shortness of breath secondary to acute on chronic diastolic CHF with moderate pulmonary hypertension: Will hold IV fluids at this time. Will continue with Lasix. Echocardiogram shows moderate pulmonary hypertension. Will monitor on telemetry for abnormality. Cardiology to assess medications and evaluation of patient Hypothyroidism: Continue with medication Chronic renal disease, stage 3: Will monitor closely. Patient will likely require evaluation as an outpatient. Anemia likely of chronic disease: Continue monitor closely. Syncope: There was reports of syncope. No indication at this time. Will monitor closely. Monitor on telemetry. Patient may require neurology evaluation if this persists. Critical Care: No Time Spent Managing Pts Care (In Minutes): 25
[2018-02-14] MEDS: ROPINIROLE HCL 1 MG TAB PO SCH (21:42)
--- NOTE | 2018-02-14 22:52 | PN ---
Date of Progress Note: 02/14/2018 Ms. Ramírez was admitted to Dr. Becerra service on 02/12/2018. Was seen by Dr. Rich on 02/13/2018 for presyncope and bradycardia. She had a negative carotid. We do not feel she needs a pacemaker. She had an echocardiogram yesterday which showed normal ejection fraction, moderate pulmonary hypertensio n. She is on diuretics right now. Her edema has resolved. She is in a sinus rhythm. IV fluids hav e been stopped. She is feeling better. But I believe while she is being treated for cellulitis and she is inactive, I think Lovenox for DVT prophylaxis is indicated and I will order that for her. CHRISTOFER/NAYELY Voice ID: [id number] Report ID: [id number]
[2018-02-15 04:54] LABS: Absolute Lymphocytes (CBC) 1.9 K/uL (0.7-4.9); Absolute Monocytes 0.7 K/uL (0.1-1.3); Absolute Neutrophil 6.8 K/uL (1.8-8.0); Basophils % 0.6 % (0-1.3); Hematocrit 28.8 % (36.0-45.0); Lymphocytes % 19.7 % (15.3-44.8); MCH 31.4 pg (27.0-35.0); MCV 92.9 fL (80-100); MPV 8.9 fL (7.6-11.3); Monocytes % 6.8 % (3.3-12.3)
[2018-02-15 04:56] LABS: Magnesium 2.1 mg/dL (1.8-2.4); Potassium 3.4 mmol/L (3.5-5.1)
[2018-02-15] MEDS: LEVOTHYROXINE SOD 0.1 MG TAB PO SCH (05:56)
[2018-02-15] MEDS: PRAMIPEXOLE DI HCL 1.5 MG PO SCH (09:00)
[2018-02-15] MEDS: ENOXAPARIN 80 MG/0.8 ML SQ SCH (09:23)
[2018-02-15] MEDS: MAGNESIUM OXIDE 400 MG TAB PO SCH (09:23)
[2018-02-15] MEDS: FERROUS SULFATE 325 MG TAB PO SCH (09:23)
[2018-02-15] MEDS: HYDRALAZINE HCL 25 MG TABLET PO SCH (09:23)
[2018-02-15] MEDS: PANTOPRAZOLE 40MG TABLET PO SCH (09:23)
[2018-02-15] MEDS: DOCOSAHEXANOIC AC/EPA 1000 MG PO SCH (09:23)
[2018-02-15] MEDS: VITAMIN D 400 UNIT TAB PO SCH (09:24)
[2018-02-15] MEDS: FUROSEMIDE 40 MG TABLET PO SCH (09:24)
[2018-02-15] MEDS ORDERED: VANCOMYCIN 1.5 GM in NA CHLORIDE 0.9% 500 ML IVPB SCH (13:00)
[2018-02-15] MEDS: CALCIUM CARBONATE 500 MG TAB PO SCH (13:15)
[2018-02-15] MEDS: TRAMADOL HCL 50 MG TAB PO PRN (16:02)
--- NOTE | 2018-02-15 17:08 | P.DS ---
Admission Date: 02/12/18 Discharge Date: 02/15/18 Primary Care Provider: Dr. Becerra Disposition: ROUTINE DISCHARGE Discharge Condition: FAIR Reason for Admission: Bilateral lower extremity cellulitis/bullous lesions on the legs/syncope - Problems (1) CHF (congestive heart failure) Onset Date: 06/28/16 Current Visit: No Status: Acute Qualifiers: Heart failure type: diastolic Heart failure chronicity: acute on chronic Qualified Code(s): I50.33 - Acute on chronic diastolic (congestive) heart failure (2) Chronic renal disease, stage 3, moderately decreased glomerular filtration rate (GFR) between 30-59 mL/min/1.73 square meter Current Visit: Yes Status: Acute (3) Cellulitis Onset Date: 05/24/16 Current Visit: No Status: Acute Qualifiers: Site of cellulitis: extremity Site of cellulitis of extremity: lower extremity Laterality: unspecified laterality Qualified Code(s): L03.119 - Cellulitis of unspecified part of limb (4) Hypertension Onset Date: 05/24/16 Current Visit: No Status: Chronic Qualifiers: Hypertension type: essential hypertension (5) Hypothyroidism Onset Date: 06/28/16 Current Visit: No Status: Chronic Qualifiers: Hypothyroidism type: acquired Qualified Code(s): E03.9 - Hypothyroidism, unspecified Brief History of Present Illness: Patient presented with weakness. Swelling of the leg with reddness. Had a syncopal episode in the ER. She does usually fall asleep in the office waiting for me. Was admitted to the hospitalist service. Hospital Course: Patient admitted taken diuresed. Seen by Dr. Rich. Was doing well this morning. Has been ambulating with PT. She does have home PT. Will discharge her on lasix. Start cipro. She was having some hypoxia at rest in the hospital. Will start her on home oxygen. We can discharge her when her oxygen is ready. Vital Signs/Physical Exam: Temp Pulse Resp BP Pulse Ox 98.6 F 72 18 112/50 L 93 02/15/18 12:00 02/15/18 12:00 02/15/18 12:00 02/15/18 12:00 02/15/18 12:00 General: Alert, In no apparent distress HEENT: Atraumatic, PERRLA, EOMI Neck: Supple, JVD not distended Respiratory: Clear to auscultation bilaterally, Normal air movement Cardiovascular: Regular rate/rhythm, Normal S1 S2 Gastrointestinal: Normal bowel sounds, No tenderness Musculoskeletal: No tenderness Integumentary: No rashes Neurological: Normal speech, Normal tone, Normal affect Lymphatics: No axilla or inguinal lymphadenopathy Laboratory Data at Discharge: WBC 9.7 K/uL (4.3-10.9) D 02/15/18 04:12 Hgb 9.7 g/dL (12.0-15.0) L 02/15/18 04:12 Hct 28.8 % (36.0-45.0) L 02/15/18 04:12 Plt Count 196 K/uL (152-406) 02/15/18 04:12 PT 11.7 SECONDS (9.5-12.5) 02/12/18 11:15 INR 0.99 02/12/18 11:15 Sodium 138 mmol/L (136-145) 02/15/18 04:12 Potassium 3.4 mmol/L (3.5-5.1) L 02/15/18 04:12 BUN 28 mg/dL (7-18) H 02/15/18 04:12 Creatinine 1.00 mg/dL (0.55-1.3) 02/15/18 04:12 Glucose 84 mg/dL (74-106) 02/15/18 04:12 Magnesium 2.1 mg/dL (1.8-2.4) 02/15/18 04:12 Total Bilirubin 0.7 mg/dL (0.2-1.0) 02/13/18 05:00 AST 30 U/L (15-37) 02/13/18 05:00 ALT 28 U/L (12-78) 02/13/18 05:00 Alkaline Phosphatase 43 U/L (45-117) L 02/13/18 05:00 Home Medications: Calcium Carbonate [Calcium] 1,500 mg PO DAILY 08/06/16 Cholecalciferol (Vitamin D3) [Vitamin D 400 IU TAB*] 800 unit PO DAILY 08/06/16 Ferrous Sulfate [Iron] 325 mg PO DAILY 08/06/16 Furosemide 80 mg PO DAILY 08/06/16 Hydralazine [Apresoline*] 25 mg PO DAILY 08/06/16 Magnesium Oxide [Magnesium] 1 tab PO DAILY 08/06/16 [place]-3 Fatty Acids [Fish Oil] 1,200 mg PO DAILY 08/06/16 Pramipexole Di-HCl [Pramipexole ER] 1.5 mg PO DAILY 08/06/16 Tramadol HCl [Ultram] 50 mg PO TID PRN 08/06/16 Levothyroxine [Synthroid] 112 mcg PO [id number] 12/11/17 Omeprazole 20 mg PO DAILY 12/11/17 Ropinirole HCl [Requip] 0.5 mg PO BEDTIME 12/11/17 Diet: AHA Activity: Ad nancy Physician Review: Patient Assessed, Agree with Above Assessment and Plan Time spent managing pt's care (in minutes): 45
[2018-02-15] MEDS: ROPINIROLE HCL 1 MG TAB PO SCH (20:59)
[2018-02-16 00:10] VITALS: O2SAT 98
[2018-02-16] MEDS: TRAMADOL HCL 50 MG TAB PO PRN (01:21)
[2018-02-16 05:05] LABS: Magnesium 2.2 mg/dL (1.8-2.4); Potassium 3.4 mmol/L (3.5-5.1)
[2018-02-16 05:30] VITALS: BMI 27.2
[2018-02-16 05:36] LABS: Absolute Lymphocytes (CBC) 1.6 K/uL (0.7-4.9); Absolute Monocytes 0.6 K/uL (0.1-1.3); Absolute Neutrophil 3.6 K/uL (1.8-8.0); Basophils % 0.7 % (0-1.3); Eosinophils % 5.4 % (0-4.4); Hematocrit 27.2 % (36.0-45.0); Lymphocytes % 25.8 % (15.3-44.8); MCH 31.4 pg (27.0-35.0); MCV 92.5 fL (80-100); MPV 9.1 fL (7.6-11.3); Monocytes % 10.3 % (3.3-12.3); RBC Red Blood Cell Count 2.94 M/uL (3.86-4.86)
[2018-02-16] MEDS: LEVOTHYROXINE SOD 0.1 MG TAB PO SCH (06:03)
[2018-02-16] MEDS: PRAMIPEXOLE DI HCL 1.5 MG PO SCH (09:00)
[2018-02-16] MEDS: HYDRALAZINE HCL 25 MG TABLET PO SCH (09:00)
[2018-02-16] MEDS: ENOXAPARIN 80 MG/0.8 ML SQ SCH (10:01)
[2018-02-16] MEDS: FERROUS SULFATE 325 MG TAB PO SCH (10:02)
[2018-02-16] MEDS: DOCOSAHEXANOIC AC/EPA 1000 MG PO SCH (10:02)
[2018-02-16] MEDS: CALCIUM CARBONATE 500 MG TAB PO SCH (10:02)
[2018-02-16] MEDS: MAGNESIUM OXIDE 400 MG TAB PO SCH (10:02)
[2018-02-16] MEDS: VITAMIN D 400 UNIT TAB PO SCH (10:03)
[2018-02-16] MEDS: PANTOPRAZOLE 40MG TABLET PO SCH (10:03)
[2018-02-16] MEDS: FUROSEMIDE 40 MG TABLET PO SCH (10:09)
[2018-02-16 12:31] VITALS: BP 134/62; TEMP 98.1
--- NOTE | 2018-02-16 13:07 | P.PN ---
Subjective Date of Service: 02/16/18 Primary Care Provider: Dr. Becerra Chief Complaint: Bilateral lower extremity cellulitis/bullous lesions on the legs/syncope Subjective: No new changes (Patients discharge held. Awaiting home oxygen to be arranged) Review of Systems 10-point ROS is otherwise unremarkable (Patient is walking back from restroom. Using a walker) Physical Examination - Vital Signs Temperature: 98.1 F Blood Pressure: 134/62 Pulse: 65 Respirations: 18 Pulse Ox (%): 99 - Physical Exam General: Alert, In no apparent distress HEENT: Atraumatic, PERRLA, EOMI Neck: Supple, JVD not distended Respiratory: Clear to auscultation bilaterally, Normal air movement Cardiovascular: Regular rate/rhythm, Normal S1 S2 Gastrointestinal: Normal bowel sounds, No tenderness Musculoskeletal: No tenderness Integumentary: No rashes Neurological: Normal speech, Normal tone, Normal affect Lymphatics: No axilla or inguinal lymphadenopathy - Studies Microbiology Data (last 24 hrs): 02/12/18 20:05 Wound - Right Lower Leg Culture & Sensitivity - Final Medications List Reviewed: Yes Assessment & Plan - Problems (Diagnosis) (1) CHF (congestive heart failure) Onset Date: 06/28/16 Status: Acute Plan: Not much diuresis. However clinically improved. She is having occasional wheezing per the patient. However not on examination. Will have her start ambulating with PT. Plans for discharge today Qualifiers: Heart failure type: diastolic Heart failure chronicity: acute on chronic Qualified Code(s): I50.33 - Acute on chronic diastolic (congestive) heart failure (2) Chronic renal disease, stage 3, moderately decreased glomerular filtration rate (GFR) between 30-59 mL/min/1.73 square meter Status: Acute Plan: Patient is stable. Will continue to monitor creatine (3) Cellulitis Onset Date: 05/24/16 Status: Acute Plan: Improving with diuresis. Can switch to oral antibiotics Qualifiers: Site of cellulitis: extremity Site of cellulitis of extremity: lower extremity Laterality: unspecified laterality Qualified Code(s): L03.119 - Cellulitis of unspecified part of limb (4) Hypertension Onset Date: 05/24/16 Status: Chronic Plan: stable. Will observe and adjust medications accordingly Qualifiers: Hypertension type: essential hypertension (5) Hypothyroidism Onset Date: 06/28/16 Status: Chronic Qualifiers: Hypothyroidism type: acquired Qualified Code(s): E03.9 - Hypothyroidism, unspecified Discharge Plan: Retirement - Code Status/Comfort Care Code Status Assessed: No Code Status: Full Code Physician Review: Patient Assessed, Agree with Above Assessment and Plan Physician Review Additional Text: Impression: Bilateral lower extremity cellulitis complicated with chronic lymphedema Shortness of breath secondary to acute on chronic diastolic CHF with moderate pulmonary hypertension Hypothyroidism Chronic renal disease, stage 3 Anemia likely of chronic disease Syncope Plan: Bilateral lower extremity cellulitis complicated with chronic lymphedema: Will continue with IV antibiotic therapy. Pharmacy to monitor and adjust per renal function. Will continue with diuresis. Spoke with her PCP Dr. Becerra who will take over the patient. Family is in agreement. Patient will need to continue with a 1500 cc per day fluid restriction and diuresis. This can be further addressed and monitored by her PCP and cardiology. Shortness of breath secondary to acute on chronic diastolic CHF with moderate pulmonary hypertension: Will hold IV fluids at this time. Will continue with Lasix. Echocardiogram shows moderate pulmonary hypertension. Will monitor on telemetry for abnormality. Cardiology to assess medications and evaluation of patient Hypothyroidism: Continue with medication Chronic renal disease, stage 3: Will monitor closely. Patient will likely require evaluation as an outpatient. Anemia likely of chronic disease: Continue monitor closely. Syncope: There was reports of syncope. No indication at this time. Will monitor closely. Monitor on telemetry. Patient may require neurology evaluation if this persists. Critical Care: No Time Spent Managing Pts Care (In Minutes): 15
== END 2018-02-16 12:53 | disposition home health service (06) | DRG 602 ==
LOC: ER 17:25 → ERHOLD 21:36 → 4TH 02-13 09:51
PROVIDERS: ADMIT Hospitalist; ATTEND Internal Medicine
DX: L03.116 Cellulitis of left lower limb (principal); I50.33 Acute on chronic diastolic (congestive) heart failure; I13.0 Hypertensive heart and chronic kidney disease with heart failure and stage 1 through stage 4 chronic kidney disease, or unspecified chronic kidney disease; L03.115 Cellulitis of right lower limb; I87.2 Venous insufficiency (chronic) (peripheral); L43.8 Other lichen planus; I89.0 Lymphedema, not elsewhere classified; R55 Syncope and collapse; N18.3 Chronic kidney disease, stage 3 (moderate); E03.9 Hypothyroidism, unspecified; G25.81 Restless legs syndrome; K21.9 Gastro-esophageal reflux disease without esophagitis; I27.20 Pulmonary hypertension, unspecified; F03.90 Unspecified dementia, unspecified severity, without behavioral disturbance, psychotic disturbance, mood disturbance, and anxiety; D50.9 Iron deficiency anemia, unspecified; Z88.6 Allergy status to analgesic agent; Z88.5 Allergy status to narcotic agent; Z88.0 Allergy status to penicillin; Z88.2 Allergy status to sulfonamides; Z88.1 Allergy status to other antibiotic agents; Z88.8 Allergy status to other drugs, medicaments and biological substances; Z96.651 Presence of right artificial knee joint; R09.02 Hypoxemia
CPT/HCPCS: 36415; 70450; 71045; 71046; 73521; 80048; 80053; 80076; 80202; 81003; 83605; 83735; 83880; 84145; 84484; 85025; 85610; 87040; 87070; 87205; 93005; 93306; 93880; 93925; 93970; 96365; 96366; 96375; 97163; 99285; J1650; J2270; J2405; J3370; J7030

== ENCOUNTER 2018-07-18 20:58 | Observation (INO) | payer OTHER ==
--- OUTSIDE RECORDS SUMMARY | 2018-07-18 21:01 | XMS REPORT ---
:1935 [facility] Address [address] [place] [id number] Care Team Providers Name Role Phone Unavailable Unavailable Unavailable Problems This patient has no known problems. Allergies, Adverse Reactions, Alerts This patient has no known allergies or adverse reactions. Medications This patient has no known medications.
--- NOTE | 2018-07-18 21:51 | EDPHYS ---
Physician Documentation [facility] Name: Joyce Ramírez Age: 82 yrs Sex: Female : 1935 Arrival Date: 07/18/2018 Time: 21:02 Bed 6 Private MD: ED Physician Mario Rocha HPI: 07/19 05:34 This 82 yrs old Female presents to ER via EMS with complaints of Leg Swelling.tw4 05:34 The patient presents with tenderness. The complaints affect the lateral aspect of right tw4 calf, right ankle, lateral aspect of right foot, right calf, right Achilles, right heel, medial aspect of right calf, medial aspect of right foot, right olsen, anterior aspect of right ankle and dorsum of right foot. Context: The problem was sustained at home. Onset: The symptoms/episode began/occurred today. Modifying factors: The symptoms are alleviated by nothing. the symptoms are aggravated by nothing. Associated signs and symptoms: The patient has no apparent associated signs or symptoms. Severity of symptoms: At their worst the symptoms were moderate. The patient has not experienced similar symptoms in the past. Historical: - Allergies: 07/18 21:47 Codeine; ak1 21:47 PENICILLINS; ak1 21:47 Aspirin; ak1 21:47 Sulfa (Sulfonamide Antibiotics); ak1 21:47 Beta-Blockers (Beta-Adrenergic Blocking Agts); ak1 21:47 MONTSERRAT INHIBITORS; ak1 21:47 CALCIUM CHANNEL BLOCKING AGENTS-PHENYLALKYLAMINES; ak1 21:47 Zzjngls-Ulv-Tpk Reductase Inhibitors; ak1 21:47 tolterodine; ak1 21:47 Levofloxacin; ak1 21:47 Demerol; ak1 21:47 Doxycycline; ak1 - Home Meds: 21:53 levothyroxine 112 mcg tab [Active]; ropinirole 0.5 mg Oral tab 1 tab daily [Active]; ak1 pramipexole 1.5 mg Oral TbER 1 tab once daily [Active]; hydralazine 25 mg Oral tab 1 tab daily [Active]; furosemide 80 mg Oral tab 1 tab once daily [Active]; loratadine 10 mg oral tab 1 tab once daily [Active]; Iron CR 65 mg Oral daily [Active]; magnesium oxide 500 mg Oral cap daily [Active]; Flonase 50 mcg/actuation Nasal spsn 1 spray once daily [Active]; olapatadine [Active]; - PMHx: 21:53 Anemia; Cellulitis; CHF; GERD; Hyperlipidemia; Hypertension; Hypothyroidism; ak1 - PSHx: 21:53 Hysterectomy; right knee replacement; ak1 - Immunization history:: Adult Immunizations up to date, Pneumococcal vaccine is up to date, Flu vaccine is not up to date. - Social history:: Smoking status: Patient/guardian denies using tobacco. - Ebola Screening: : No symptoms or risks identified at this time. ROS: 07/19 05:34 Constitutional: Negative for fever, chills, and weight loss, Eyes: Negative for injury, tw4 pain, redness, and discharge, Cardiovascular: Negative for chest pain, palpitations, and edema, Respiratory: Negative for shortness of breath, cough, wheezing, and pleuritic chest pain, Abdomen/GI: Negative for abdominal pain, nausea, vomiting, diarrhea, and constipation, Skin: Negative for injury, rash, and discoloration, Neuro: Negative for headache, weakness, numbness, tingling, and seizure. MS/extremity: Positive for pain, swelling, tenderness. Exam: 05:34 Constitutional: This is a well developed, well nourished patient who is awake, alert, tw4 and in no acute distress. Head/Face: Normocephalic, atraumatic. Cardiovascular: Regular rate and rhythm with a normal S1 and S2. No gallops, murmurs, or rubs. Normal PMI, no JVD. No pulse deficits. Respiratory: Lungs have equal breath sounds bilaterally, clear to auscultation and percussion. No rales, rhonchi or wheezes noted. No increased work of breathing, no retractions or nasal flaring. Abdomen/GI: Soft, non-tender, with normal bowel sounds. No distension or tympany. No guarding or rebound. No evidence of tenderness throughout. Back: No spinal tenderness. No costovertebral tenderness. Full range of motion. Neuro: Awake and alert, GCS 15, oriented to person, place, time, and situation. Cranial nerves II-XII grossly intact. Motor strength 5/5 in all extremities. Sensory grossly intact. Cerebellar exam normal. Normal gait. 05:34 Musculoskeletal/extremity: Extremities: noted in the right leg: swelling, noted in the left leg: swelling. Vital Signs: 07/18 21:02 BP 151 / 56; Pulse 74; Resp 18 S; Temp 97.8(O); Pulse Ox 98% on R/A; Weight 83.91 kg bb (R); Height 5 ft. 4 in. (162.56 cm) (R); Pain 8/10; 22:47 BP 128 / 57; Pulse 67; Resp 16; Pulse Ox 96% on R/A; aa1 21:02 Body Mass Index 31.75 (83.91 kg, 162.56 cm) bb MDM: 21:10 Patient medically screened. [facility] 07/19 05:34 Data reviewed: vital signs, nurses notes. Test interpretation: by ED physician or [facility] midlevel provider: ECG. Counseling: I had a detailed discussion with the patient and/or guardian regarding: the historical points, exam findings, and any diagnostic results supporting the discharge/admit diagnosis. 07/18 21:11 Order name: Basic Metabolic Panel [facility] 07/18 21:11 Order name: CBC with Diff [facility] 07/18 21:11 Order name: LFT's [facility] 07/18 21:11 Order name: Magnesium [facility] 07/18 21:11 Order name: NT PRO-BNP [facility] 07/18 21:11 Order name: PT-INR [facility] 07/18 21:11 Order name: Troponin (emerg Dept Use Only) [facility] 07/18 21:11 Order name: XRAY Chest (1 view) [facility] 07/18 21:11 Order name: EKG; Complete Time: 21:12 [facility] 07/18 23:08 Order name: Urine Dipstick--Ancillary (enter results) al 07/18 23:20 Order name: CBC Smear Scan [facility] 07/18 23:21 Order name: Urine Dipstick-Ancillary [facility] 07/18 21:11 Order name: Cardiac monitoring; Complete Time: 21:36 [facility] 07/18 21:11 Order name: EKG - Nurse/Tech; Complete Time: 21:36 [facility] 07/18 21:11 Order name: IV Saline Lock; Complete Time: 22:01 [facility] 07/18 21:11 Order name: Labs collected and sent; Complete Time: 22:01 [facility] 07/18 21:11 Order name: O2 Per Protocol; Complete Time: 21:18 [facility] 07/18 21:11 Order name: O2 Sat Monitoring; Complete Time: 21:18 tw4 07/18 21:33 Order name: Santos; Complete Time: 22:29 tw4 EC:58 Rate is 74 beats/min. Rhythm is regular. QRS [place] is Normal. UT interval is normal. QRS tw4 interval is normal. QT interval is normal. No Q waves. T waves are Normal. ST Segment is depressed in leads V3, V6. Clinical impression: NSR w/ Non-specific ST/T Changes and Abnormal EKG without significant change. Interpreted by me. Reviewed by me. Administered Medications: 07/18 21:37 CANCELLED (Dr. Becerra and Dr. Kern verbal orders): vancoMYCIN 1 grams IVPB once over 2 ak1 hrs 22:28 Drug: Lasix 40 mg Route: IVP; Site: left antecubital; ak1 22:56 Follow up: Response: No adverse reaction ak1 Disposition: 07/18/18 21:51 Hospitalization ordered by Arthur Becerra for Observation. Preliminary diagnosis is Edema, unspecified. - Bed requested for Telemetry/MedSurg (observation). - Status is Observation. ak1 - Condition is Stable. - Problem is new. - Symptoms have improved. UTI on Admission? No Signatures: Dispatcher [employer] EDAR Nenita Chapin RN RN Yue Adhikari, RN RN Myah Pacheco RN RN ak1 Mario Rocha MD MD tw4 Corrections: (The following items were deleted from the chart) 21:37 21:33 vancoMYCIN 1 grams IVPB once over 2 hrs ordered. tw4 ak1 22:43 21:51 Hospitalization Ordered by Arthur Becerra MD for Observation. Preliminary diagnosis mw is Edema, unspecified. Bed requested for Telemetry/MedSurg (observation). Status is Observation. Condition is Stable. Problem is new. Symptoms have improved. UTI on Admission? No. tw4 23:48 22:43 07/18/2018 21:51 Hospitalization Ordered by Arthur Becerra MD for Observation. ak1 Preliminary diagnosis is Edema, unspecified. Bed requested for Telemetry/MedSurg (observation). Status is Observation. Condition is Stable. Problem is new. Symptoms have improved. UTI on Admission? No. mw
--- NOTE | 2018-07-18 21:51 | ER ---
Nurse's Notes [facility] Name: Joyce Ramírez Age: 82 yrs Sex: Female : 1935 Arrival Date: 07/18/2018 Time: 21:02 Bed 6 Private MD: Diagnosis: Edema, unspecified Presentation: 07/18 21:02 Presenting complaint: EMS states: they were toned out for report of pt with bilateral bb lower leg pain and swelling, pt has hx of CHF and has not been taking the appropriate dosage of lasix. Transition of care: patient was not received from another setting of care. Onset of symptoms was July 18, 2018. Risk Assessment: Do you want to hurt yourself or someone else? Patient reports no desire to harm self or others. Initial Sepsis Screen: Does the patient meet any 2 criteria? No. Patient's initial sepsis screen is negative. Does the patient have a suspected source of infection? No. Patient's initial sepsis screen is negative. Care prior to arrival: None. 21:02 Method Of Arrival: EMS: [facility] bb 21:02 Acuity: BRITTANI 3 bb Historical: - Allergies: 21:47 Codeine; ak1 21:47 PENICILLINS; ak1 21:47 Aspirin; ak1 21:47 Sulfa (Sulfonamide Antibiotics); ak1 21:47 Beta-Blockers (Beta-Adrenergic Blocking Agts); ak1 21:47 MONTSERRAT INHIBITORS; ak1 21:47 CALCIUM CHANNEL BLOCKING AGENTS-PHENYLALKYLAMINES; ak1 21:47 Kecfqlj-Lct-Suq Reductase Inhibitors; ak1 21:47 tolterodine; ak1 21:47 Levofloxacin; ak1 21:47 Demerol; ak1 21:47 Doxycycline; ak1 - Home Meds: 21:53 levothyroxine 112 mcg tab [Active]; ropinirole 0.5 mg Oral tab 1 tab daily [Active]; ak1 pramipexole 1.5 mg Oral TbER 1 tab once daily [Active]; hydralazine 25 mg Oral tab 1 tab daily [Active]; furosemide 80 mg Oral tab 1 tab once daily [Active]; loratadine 10 mg oral tab 1 tab once daily [Active]; Iron CR 65 mg Oral daily [Active]; magnesium oxide 500 mg Oral cap daily [Active]; Flonase 50 mcg/actuation Nasal spsn 1 spray once daily [Active]; olapatadine [Active]; - PMHx: 21:53 Anemia; Cellulitis; CHF; GERD; Hyperlipidemia; Hypertension; Hypothyroidism; ak1 - PSHx: 21:53 Hysterectomy; right knee replacement; ak1 - Immunization history:: Adult Immunizations up to date, Pneumococcal vaccine is up to date, Flu vaccine is not up to date. - Social history:: Smoking status: Patient/guardian denies using tobacco. - Ebola Screening: : No symptoms or risks identified at this time. Screenin:54 Abuse screen: Denies threats or abuse. Denies injuries from another. Nutritional ak1 screening: No deficits noted. Tuberculosis screening: No symptoms or risk factors identified. Fall Risk Ambulatory Aid- Crutches/Cane/Walker (15 pts). Gait- Weak (10 pts.). Assessment: 21:37 General: Appears in no apparent distress. Behavior is calm, cooperative. Pain: ak1 Complains of pain in right leg and left leg. Neuro: No deficits noted. Cardiovascular: No deficits noted. Respiratory: No deficits noted. GI: No signs and/or symptoms were reported involving the gastrointestinal system. : No signs and/or symptoms were reported regarding the genitourinary system. EENT: No signs and/or symptoms were reported regarding the EENT system. Derm: Skin is dry, Skin is red, Skin temperature is warm pt with selling noted to bilateral lower legs, no pitting edema present. Dr. Rocha spoke with Dr. 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 Musculoskeletal: Reports unable to ambulate with walker as normal due to pain in lower legs. 22:47 Reassessment: Patient appears in no apparent distress at this time. Patient and/or aa1 family updated on plan of care and expected duration. Pain level reassessed. Patient is alert, oriented x 3, equal unlabored respirations, skin warm/dry/pink. Report given to Carrie on 4th floor. Vital Signs: 21:02 BP 151 / 56; Pulse 74; Resp 18 S; Temp 97.8(O); Pulse Ox 98% on R/A; Weight 83.91 kg bb (R); Height 5 ft. 4 in. (162.56 cm) (R); Pain 8/10; 22:47 BP 128 / 57; Pulse 67; Resp 16; Pulse Ox 96% on R/A; aa1 21:02 Body Mass Index 31.75 (83.91 kg, 162.56 cm) ED Course: 21:02 Patient arrived in ED. bb 21:02 Arm band placed on Patient placed in an exam room, on a stretcher, on pulse oximetry. bb EKG completed in triage. Results shown to MD. EKG completed in triage. Results shown to MD. 21:04 Triage completed. bb 21:10 Mario Rocha MD is Attending Physician. tw4 21:17 Myah Norman, RN is Primary Nurse. ak1 21:44 Arthur Becerra MD is Hospitalizing Provider. tw4 21:54 Patient has correct armband on for positive identification. Placed in gown. Bed in low ak1 position. Call light in reach. pvc monitor on. Pulse ox on. NIBP on. 22:00 Initial lab(s) drawn, by me, sent to lab. Missed attempt(s): 20 gauge in right bb antecubital area. Bleeding controlled, band aid applied, catheter tip intact. Inserted saline lock: 22 gauge in left upper arm, using aseptic technique. Blood collected. 22:29 Santos cath inserted, using sterile technique, 16 Fr., by me, balloon inflated, to ak1 gravity drainage, Patient tolerated well. 22:55 No provider procedures requiring assistance completed. Patient admitted, IV remains in ak1 place. Administered Medications: 21:37 CANCELLED (Dr. Becerra and Dr. Kern verbal orders): vancoMYCIN 1 grams IVPB once over 2 ak1 hrs 22:28 Drug: Lasix 40 mg Route: IVP; Site: left antecubital; ak1 22:56 Follow up: Response: No adverse reaction ak1 Output: 23:13 Urine: 400ml (Santos); Total: 400ml. ak1 Outcome: 21:51 Decision to Hospitalize by Provider. tw4 22:55 Condition: stable ak1 22:55 Instructed on the need for admit. 22:55 Admitted to Med/surg accompanied by tech, family with patient, via stretcher, room 405, ak1 with chart. 23:48 Patient left the ED. ak1 Signatures: Linda Payne RN RN aa1 Yue White, RN RN bb Myah Norman, RN RN ak1 Mario Rocha MD MD tw4
[2018-07-18 22:09] LABS: Absolute Monocytes 0.4 K/uL (0.1-1.3); Basophils % 0.3 % (0-1.3); Eosinophils % 0.4 % (0-4.4); Lymphocytes % 17.6 % (15.3-44.8); MPV 8.8 fL (7.6-11.3); Monocytes % 7.8 % (3.3-12.3); RBC Red Blood Cell Count 2.82 M/uL (3.86-4.86)
[2018-07-18 22:12] LABS: Protime INR 1.05
[2018-07-18] MEDS ORDERED: FUROSEMIDE 40 MG/4 ML VIAL ONE (22:26)
[2018-07-18 22:29] LABS: ALT/SGPT 25 U/L (12-78); AST/SGOT 23 U/L (15-37); Albumin 3.9 g/dL (3.4-5.0); Alkaline Phosphatase 57 U/L (45-117); BUN Blood Urea Nitrogen 33 mg/dL (7-18); Bicarbonate 30 mmol/L (21-32); Bilirubin Direct 0.2 mg/dL (0-0.2); Glucose Level 109 mg/dL (74-106); Magnesium 2.2 mg/dL (1.8-2.4); NT PRO-BNP 645 pg/mL (<450); Potassium 4.1 mmol/L (3.5-5.1); Protein, Total 7.7 g/dL (6.4-8.2); Sodium Level 139 mmol/L (136-145); Troponin (Emerg Dept Use Only) < 0.02 ng/mL (0.0-0.045)
[2018-07-18] MEDS ORDERED: ONDANSETRON 4 MG/2 ML VIAL IV PRN (22:29)
[2018-07-18 23:19] LABS: Blood Morphology Comment NOTED (NOT SEEN); Platelet Estimate ADEQ; Urine White Blood Cell Casts OK
[2018-07-18 23:20] LABS: Rouleau NOTED
[2018-07-18 23:21] LABS: Urine Blood NEGATIVE (NEG); Urine Glucose NEGATIVE (NEG); Urine Protein NEGATIVE (NEG); Urine pH 5.5 (5.0-7.0)
[2018-07-19 00:19] VITALS: BMI 30.7
[2018-07-19 03:47] LABS: Potassium 3.4 mmol/L (3.5-5.1)
[2018-07-19 04:32] LABS: Absolute Lymphocytes (CBC) 1.5 K/uL (0.7-4.9); Absolute Monocytes 0.8 K/uL (0.1-1.3); Absolute Neutrophil 4.3 K/uL (1.8-8.0); Basophils % 0.5 % (0-1.3); Eosinophils % 1.1 % (0-4.4); Hematocrit 28.6 % (36.0-45.0); Lymphocytes % 22.1 % (15.3-44.8); Monocytes % 11.7 % (3.3-12.3); RBC Red Blood Cell Count 3.14 M/uL (3.86-4.86)
--- NOTE | 2018-07-19 08:17 | RAD REPORT ---
EXAM DESCRIPTION: RAD - Chest Single View - 07/18/2018 11:02 pm CLINICAL HISTORY: Pulmonary edema, shortness of breath COMPARISON: January 2018 TECHNIQUE: AP portable chest image was obtained 2254 hours . FINDINGS: No focal mass or consolidation. Interstitial markings are prominent, improved compared to the January imaging. Heart size is upper normal but smaller than seen in January. Vasculature is pr ominent but also improved. No measurable pleural effusion and no pneumothorax. No acute bony abnormal ity seen. No acute aortic findings suspected. IMPRESSION: Minimal failure/ volume overload pattern less prominent than seen January 2018.
[2018-07-19] MEDS: FUROSEMIDE 20 MG/ 2ML VIAL IV SCH ×2 (08:58→17:01)
[2018-07-19] MEDS: ACETAMINOPHEN 500 MG TAB PO PRN ×2 (09:05→17:02)
--- NOTE | 2018-07-19 14:07 | ECHO ---
HEIGHT: 5 ft 4 in WEIGHT: 179 lb 0 oz DATE OF STUDY: 07/19/[address]: Haroon Rich MD 2-DIMENSIONAL: YES M.MODE: YES DOPPLER: YES COLOR FLOW: YES TDS: YES PORTABLE: DEFINITY: BUBBLE STUDY: DIAGNOSIS: CHF CARDIAC HISTORY: CATHERIZATION: NO SURGERY: NO PROSTHETIC VALVE: NO PACEMAKER: NO MEASUREMENTS (cm) DIASTOLIC (NORMALS) SYSTOLIC (NORMALS) IVSd 1.1 (0.6-1.2) LA Diam 3.6 (1.9-4.0) LVEF 76% LVIDd 4.6 (3.5-5.7) LVIDs 2.6 (2.0-3.5) %FS 44% LVPWd 1.2 (0.6-1.2) Ao Diam 2.5 (2.0-3.7) 2 DIMENSIONAL ASSESSMENT: RIGHT ATRIUM: NORMAL LEFT ATRIUM: NORMAL RIGHT VENTRICLE: NORMAL LEFT VENTRICLE: NORMAL TRICUSPID VALVE: NORMAL MITRAL VALVE: MITRAL ANNULAR CALCIFICATION PULMONIC VALVE: NORMAL AORTIC VALVE: 3 LEAFLET PERICARDIAL EFFUSION: NONE AORTIC ROOT: NORMAL LEFT VENTRICULAR WALL MOTION: NORMAL DOPPLER/COLOR FLOW: MILD MITRAL REGURGITATION AND TRICUSPID REGURGITATION. MILD PULMONARY HYPERTENSION. ESTIMATED RIGHT VENTRICULAR SYSTOLIC PRESSURE 40-45 mmHg. COMMENTS: NORMAL LEFT VENTRICULAR EJECTION FRACTION. MITRAL ANNULAR CALCIFICATION. MILD MITRAL REGURGITATION AND TRICUSPID REGURGITATION. MILD PULMONARY HYPERTENSION. TECHNOLOGIST: JESSE PAN
--- NOTE | 2018-07-19 15:47 | CON ---
Chief Complaint: Leg swelling. History Of Present Illness: Mrs. Ramírez has had numerous hospital admissions for leg edema and cellulitis. She takes Lasix because without it, she gets a lot of edema, but she hates taking the Lasix because she has incontinence. When she takes Lasix every day her bladder feels full adn uncomfortable. It soaks her clothes, her pads and it seems to be an impossible problem. I do not think she has actually seen a urologist about it, but she manages this by not taking Lasix on many days, just taking it whe gets really edematous. This has resulted in numerous hospital admissions. Dr. Becerra's precise question to me was whether changing medications so that she could use less Lasix might work. It is probably true that if she were to start Entresto, she would use less Lasix, but she would not have less diuresis and she would still had the same urine flow problem. I would not recommend reducing her fluid intake just to reduce urine output. The patient needs to have something done for the incontinence and control of the urine. I would recommend a Urology consult. The patient has normal ejection fraction, mildly stiff heart, moderate pulmonary hypertension in her last echocardiogram about 5 or 6 months ago. She has never had decreased ejection fraction. Her edema is pretty much limited to the legs, but she has venous insufficiency. She does not have DVT. She has some lymphedema and many episodes of cellulitis. For the most part, many of her hospitalizations have been the result of her reducing the amount of Lasix to reduce the amount of urine that is on her bed, clothes and making her miserable and that seems to be the case again today. Outpatient Medications: Tramadol, iron sulfate, omega-3 fatty acids, magnesium oxide, calcium carbonate, pramipexole, hydralazine, omeprazole, levothyroxine, ropinirole, olopatadine eye drops, lysine, loratadine, Flonase, calcium lactate , and furosemide 40 b.i.d. Physical Examination: Vital Signs: She is 5 feet 4 inches, 179 pounds. General: Alert, oriented, pleasant, not in distress. Lungs: Clear. Cardiac: Unremarkable. Extremities : Her skin is very thick, woody. Mild cellulitis on the left. There is 2+ edema up to the knees and 1+ above the knees. I do not see presacral or abdominal wall edema. Laboratory Data: Reveals N terminal proBNP is 645 and 570. Troponins are normal. Creatinine 0.98, blood sugar 140. Impression: The patient really needs urological consult, perhaps an indwelling Santos catheter and some kind of assessment of the bladder. I suspect she has marked distortion of the bladder with incomplete draining and incontinence simultaneously. Perhaps, a suprapubic catheter or chronic indwelling Santos is the answer to the problem. SESAR Voice ID: [id number] Report ID: [id number] MTDD
--- NOTE | 2018-07-19 16:51 | EKG ---
Test Date: 2018-07-18 Test Time: 21:23:04 Network Security Administrator: LEDA MEASUREMENT RESULTS: Intervals: Rate: 74 DC: 150 QRSD: 84 QT: 416 QTc: 461 Edwards: P: 59 DC: 150 QRS: 52 T: 55 INTERPRETIVE STATEMENTS: Normal sinus rhythm ST abnormality, possible digitalis effect Abnormal ECG Compared to ECG 02/12/2018 21:08:45 No significant changes Electronically Signed On 07-19-18 16:49:56 CDT by Haroon Rich
[2018-07-19] MEDS ORDERED: OLOPATADINE HCL OPTH PRN (17:52)
--- NOTE | 2018-07-19 17:59 | P.HP ---
Certification for Inpatient Patient admitted to: Observation With expected LOS: >2 Midnights Patient will require the following post-hospital care: Home Health Services Practitioner: I am a practitioner with admitting privileges, knowledge of patient current condition, hospital course, and medical plan of care. Services: Services provided to patient in accordance with Admission requirements found in Title 42 Section 412.3 of the Code of Federal Regulations Patient History Date of Service: 07/19/18 Primary Care Provider: Hernan Reason for admission: Chr exacerbation History of Present Illness: Patient is a an office patient of [facility]. She was in the office with dysuria on . Had a normal examination. She does have chronic leg swelling. The patient sister is taking care of her(daughter is the primary manager primary care and is on vacation). She told me the patient was not taking her lasix. This is due to the embarssement of having to go to the bathroom frequently. She will not take it on the days she has an outing planned. The patient was instructed to take her lasix for the next 5 days. She started for a day. However the sister felt that her legs were too swollen and brought her to the ER. The patient was given lasix and her legs are smaller than her baseline. The patient is complaining that it is difficult having to go to the bathroom so frequently. Allergies aspirin Allergy (Intermediate, Verified 06/28/16 08:13) Nausea/Vomiting codeine Allergy (Intermediate, Verified 06/28/16 08:13) Nervousness, can't sleep Penicillins Allergy (Intermediate, Verified 06/28/16 08:13) diarrhea Hovsfmc-Epd-Rrv Reductase Inhibitor Allergy (Intermediate, Verified 02/13/18 01: 37) restless leg syndrome Sulfa (Sulfonamide Antibiotics) Allergy (Intermediate, Verified 06/28/16 08:13) Dizziness, hallucinations MONTSERRAT Inhibitors Allergy (Verified 02/13/18 01:35) Anaphylaxis levofloxacin Allergy (Verified 02/13/18 01:38) Shortness of breath tolterodine Allergy (Verified 02/13/18 01:37) ankle swelling and frequent urinating Beta-Blockers (Beta-Adrenergic Bloc Adverse Reaction (Verified 06/28/16 08:13) unknown Calcium Channel Blocking Agents-Dih Adverse Reaction (Verified 06/28/16 08:13) nervousness doxycycline Adverse Reaction (Verified 02/13/18 01:38) severe headache metolazone Adverse Reaction (Verified 02/13/18 01:39) severe back pain Home Medications: Calcium Carbonate [Calcium] 1,500 mg PO DAILY 08/06/16 Ferrous Sulfate [Iron] 325 mg PO DAILY 08/06/16 Hydralazine [Apresoline*] 25 mg PO DAILY 08/06/16 Magnesium Oxide [Magnesium] 1 tab PO DAILY 08/06/16 [place]-3 Fatty Acids [Fish Oil] 1,200 mg PO DAILY 08/06/16 Pramipexole Di-HCl [Pramipexole ER] 1.5 mg PO BEDTIME 08/06/16 Tramadol HCl [Ultram] 50 mg PO TID PRN 08/06/16 Levothyroxine [Synthroid] 112 mcg PO [id number] 12/11/17 Omeprazole 20 mg PO DAILY 12/11/17 Ropinirole HCl [Requip] 0.5 mg PO BEDTIME 12/11/17 Calcium Lactate 255 mg PO DAILY 07/19/18 Fluticasone [Flonase 50MCG Nasal [place]*] 1 spray IH PRN PRN 07/19/18 Furosemide [Lasix*] 40 mg PO BID 07/19/18 Loratadine [Claritin*] 1 tab PO DAILY 07/19/18 Lysine HCl [l-Lysine] 500 mg PO DAILY 07/19/18 Olopatadine HCl 1 drop OPTH PRN PRN 07/19/18 Ubidecarenone [Co Q-10] 1 tab PO DAILY 07/19/18 - Past Medical/Surgical History Has patient received pneumonia vaccine in the past: Yes Diabetic: No -: Hypertension -: Hypothyroidism -: Edema to the lower extremities -: Venous insufficiency -: Restless leg syndrome -: GERD -: Urinary incontinence -: CHF, likely diastolic dysfunction -: Hysterectomy -: Bilateral oophorectomy -: Left breast cyst removed -: Total right knee replacement -: Cataract surgery Psychosocial/ Personal History: Patient is , she has 3 children. She does not work. She lives by herself but near family. - Family History Sister -: Lung disease Notes: Copd,Asthma Father -: Heart disease Mother -: Hypertension - Social History Smoking Status: Never smoker Alcohol use: No CD- Drugs: No Caffeine use: No Place of Residence: Home Review of Systems 10-point ROS is otherwise unremarkable Cardiovascular: Edema (she has chronic lympahdema ) Physical Examination - Vital Signs Temperature: 98.2 F Blood Pressure: 116/56 Pulse: 62 Respirations: 19 Pulse Ox (%): 98 - Physical Exam General: Alert, In no apparent distress HEENT: Atraumatic, PERRLA, Mucous membr. moist/pink, EOMI, Sclerae nonicteric Neck: Supple, 2+ carotid pulse no bruit, No LAD, Without JVD or thyroid abnormality Respiratory: Clear to auscultation bilaterally, Normal air movement Cardiovascular: Regular rate/rhythm, Normal S1 S2 Gastrointestinal: Normal bowel sounds, No tenderness Musculoskeletal: No tenderness Integumentary: No rashes Neurological: Normal gait, Normal speech, Normal strength at 5/5 x4 extr, Normal tone, Normal affect Lymphatics: No axilla or inguinal lymphadenopathy - Studies Laboratory Data (last 24 hrs) 07/18/18 21:55: PT 12.4, INR 1.05 07/18/18 21:55: WBC 5.4, Hgb 10.6 L, Hct 29.0 L, Plt Count 231 07/18/18 21:55: Sodium 139, Potassium 4.1, BUN 33 H, Creatinine 0.98, Glucose 109 H, Magnesium 2.2, Total Bilirubin 1.0, AST 23, ALT 25, Alkaline Phosphatase 57 Assessment and Plan - Problems (Diagnosis) (1) CHF (congestive heart failure) Onset Date: 06/28/16 Current Visit: No Status: Acute Plan: Patient is doing well. Will continue her diuresis. Plan on discharging in the morning. Will discuss a chf monitoring home health service(telemed) with executive secretary social welfare. Would not do a chcf padgett as it would definetly affect this patients quality of life. Qualifiers: Heart failure type: diastolic Heart failure chronicity: chronic Qualified Code(s): I50.32 - Chronic diastolic (congestive) heart failure (2) Dementia Current Visit: Yes Status: Acute Plan: Patient has always had a problem with compliance. Will need to make her medications therapy easier. Will consider once a day lasix dosing. Will need a chf program with her home health as well. Qualifiers: Dementia type: Alzheimer's disease Alzheimer's disease onset: late-onset Dementia behavioral disturbance: without behavioral disturbance Qualified Code (s): G30.1 - Alzheimer's disease with late onset; F02.80 - Dementia in other diseases classified elsewhere without behavioral disturbance (3) Chronic renal failure, stage 2 (mild) Current Visit: Yes Status: Chronic Plan: Patient is staying stable which gives us room for diuresis. Discharge Plan: Home Plan to discharge in: 24 Hours - Advance Directives Does patient have a Living Will: Yes Does patient have a Durable POA for Healthcare: Yes - Code Status/Comfort Care Code Status Assessed: No Code Status: Full Code Critical Care: No Time Spent Managing Pts Care (In Minutes): 40
[2018-07-19] MEDS ORDERED: ROPINIROLE HCL 0.25 MG TAB PO SCH (21:00)
[2018-07-19] MEDS ORDERED: PRAMIPEXOLE DI HCL 1.5 MG PO SCH (21:00)
[2018-07-20] MEDS ORDERED: LEVOTHYROXINE SOD 0.112 MG TAB PO SCH (06:00)
[2018-07-20 06:15] LABS: Absolute Lymphocytes (CBC) 1.3 K/uL (0.7-4.9); Absolute Monocytes 0.5 K/uL (0.1-1.3); Absolute Neutrophil 2.8 K/uL (1.8-8.0); Basophils % 0.6 % (0-1.3); Eosinophils % 3.5 % (0-4.4); Hematocrit 27.1 % (36.0-45.0); Lymphocytes % 27.3 % (15.3-44.8); MPV 8.6 fL (7.6-11.3); Monocytes % 9.8 % (3.3-12.3); RBC Red Blood Cell Count 2.56 M/uL (3.86-4.86)
[2018-07-20] MEDS ORDERED: PANTOPRAZOLE 40MG TABLET PO SCH (06:30)
[2018-07-20 06:31] LABS: Albumin 3.3 g/dL (3.4-5.0); Bilirubin Total 0.8 mg/dL (0.2-1.0); Potassium 3.7 mmol/L (3.5-5.1); Protein, Total 6.6 g/dL (6.4-8.2)
[2018-07-20 08:28] LABS: Blood Morphology Comment NOTED (NOT SEEN); Platelet Estimate ADEQ; Rouleau NOTED; Urine White Blood Cell Casts OK
[2018-07-20] MEDS: FUROSEMIDE 20 MG/ 2ML VIAL IV SCH (08:38)
[2018-07-20] MEDS ORDERED: CALCIUM CARBONATE 500 MG TAB PO SCH (09:00)
[2018-07-20] MEDS ORDERED: HOME MED 1 EA UNK (Magnesium Oxide [Magnesium] 1 TAB) PO SCH (09:00)
[2018-07-20] MEDS ORDERED: LYSINE HCL 500 MG PO SCH (09:00)
[2018-07-20] MEDS ORDERED: FERROUS SULFATE 325 MG TAB PO SCH (09:00)
[2018-07-20] MEDS ORDERED: CALCIUM LACTATE PO SCH (09:00)
[2018-07-20] MEDS ORDERED: UBIDECARENONE PO SCH (09:00)
[2018-07-20] MEDS ORDERED: LORATADINE 10 MG TAB PO SCH (09:00)
[2018-07-20] MEDS ORDERED: HYDRALAZINE HCL 25 MG TABLET PO SCH (09:00)
[2018-07-20 10:16] VITALS: O2SAT 96
--- NOTE | 2018-07-20 11:00 | P.DS ---
Admission Date: 07/18/18 Discharge Date: 07/20/18 Primary Care Provider: Hernan Disposition: ROUTINE DISCHARGE Discharge Condition: GOOD Reason for Admission: Chr exacerbation - Problems (1) CHF (congestive heart failure) Onset Date: 06/28/16 Current Visit: No Status: Acute Qualifiers: Heart failure type: diastolic Heart failure chronicity: chronic Qualified Code(s): I50.32 - Chronic diastolic (congestive) heart failure (2) Dementia Current Visit: Yes Status: Acute Qualifiers: Dementia type: Alzheimer's disease Alzheimer's disease onset: late-onset Dementia behavioral disturbance: without behavioral disturbance Qualified Code (s): G30.1 - Alzheimer's disease with late onset; F02.80 - Dementia in other diseases classified elsewhere without behavioral disturbance (3) Chronic renal failure, stage 2 (mild) Current Visit: Yes Status: Chronic Brief History of Present Illness: Patient is a an office patient of [facility]. She was in the office with dysuria on . Had a normal examination. She does have chronic leg swelling. The patient sister is taking care of her(daughter is the primary skin care consultant and is on vacation). She told me the patient was not taking her lasix. This is due to the embarssement of having to go to the bathroom frequently. She will not take it on the days she has an outing planned. The patient was instructed to take her lasix for the next 5 days. She started for a day. However the sister felt that her legs were too swollen and brought her to the ER. The patient was given lasix and her legs are smaller than her baseline. The patient is complaining that it is difficult having to go to the bathroom so frequently. Hospital Course: Patient is less swollen. Will send her home today. Will put her on qday lasix , instead of bid. Will have her follow up in a week. May considering sending her to urology to teach the patient how to straight cath. However she does not seem like she would do that. Not a candidate for expansion envelope maker hand padgett placement. The patient does not want this and I agree. Vital Signs/Physical Exam: Temp Pulse Resp BP Pulse Ox 97.2 F 52 18 139/63 96 07/20/18 08:00 07/20/18 08:38 07/20/18 08:00 07/20/18 08:38 07/20/18 08:00 General: Alert, In no apparent distress HEENT: Atraumatic, PERRLA, EOMI Neck: Supple, JVD not distended Respiratory: Clear to auscultation bilaterally, Normal air movement Cardiovascular: Regular rate/rhythm, Normal S1 S2 Gastrointestinal: Normal bowel sounds, No tenderness Musculoskeletal: No tenderness Integumentary: No rashes Neurological: Normal speech, Normal tone, Normal affect Lymphatics: No axilla or inguinal lymphadenopathy Laboratory Data at Discharge: WBC 4.8 K/uL (4.3-10.9) D 07/20/18 05:52 Hgb 10.0 g/dL (12.0-15.0) L 07/20/18 05:52 Hct 27.1 % (36.0-45.0) L 07/20/18 05:52 Plt Count 203 K/uL (152-406) 07/20/18 05:52 PT 12.4 SECONDS (9.5-12.5) 07/18/18 21:55 INR 1.05 07/18/18 21:55 Sodium 141 mmol/L (136-145) 07/20/18 05:52 Potassium 3.7 mmol/L (3.5-5.1) 07/20/18 05:52 BUN 29 mg/dL (7-18) H 07/20/18 05:52 Creatinine 0.83 mg/dL (0.55-1.3) 07/20/18 05:52 Glucose 101 mg/dL (74-106) 07/20/18 05:52 Magnesium 2.2 mg/dL (1.8-2.4) 07/18/18 21:55 Total Bilirubin 0.8 mg/dL (0.2-1.0) 07/20/18 05:52 AST 20 U/L (15-37) 07/20/18 05:52 ALT 20 U/L (12-78) 07/20/18 05:52 Alkaline Phosphatase 49 U/L (45-117) 07/20/18 05:52 Troponin I < 0.02 ng/mL (0.0-0.045) 07/19/18 03:09 Home Medications: Calcium Carbonate [Calcium] 1,500 mg PO DAILY 08/06/16 Ferrous Sulfate [Iron] 325 mg PO DAILY 08/06/16 Hydralazine [Apresoline*] 25 mg PO DAILY 08/06/16 Magnesium Oxide [Magnesium] 1 tab PO DAILY 08/06/16 [place]-3 Fatty Acids [Fish Oil] 1,200 mg PO DAILY 08/06/16 Pramipexole Di-HCl [Pramipexole ER] 1.5 mg PO BEDTIME 08/06/16 Tramadol HCl [Ultram] 50 mg PO TID PRN 08/06/16 Levothyroxine [Synthroid] 112 mcg PO [id number] 12/11/17 Omeprazole 20 mg PO DAILY 12/11/17 Ropinirole HCl [Requip] 0.5 mg PO BEDTIME 12/11/17 Calcium Lactate 255 mg PO DAILY 07/19/18 Fluticasone [Flonase 50MCG Nasal [place]*] 1 spray IH PRN PRN 07/19/18 Furosemide [Lasix*] 40 mg PO BID 07/19/18 Loratadine [Claritin*] 1 tab PO DAILY 07/19/18 Lysine HCl [l-Lysine] 500 mg PO DAILY 07/19/18 Olopatadine HCl 1 drop OPTH PRN PRN 07/19/18 Ubidecarenone [Co Q-10] 1 tab PO DAILY 07/19/18 Furosemide 80 mg PO DAILY 30 Days #30 tablet 07/20/18 New Medications: Furosemide 80 mg PO DAILY 30 Days #30 tablet Diet: AHA Activity: Ad nancy Physician Review: Patient Assessed, Agree with Above Assessment and Plan Time spent managing pt's care (in minutes): 25
[2018-07-20 12:06] VITALS: BP 121/51; TEMP 97.6
--- NOTE | 2018-07-20 15:22 | PN ---
Date of Progress Note: 07/20/2018 Ms. Ramírez was admitted on 07/18/2018 because of edema. She was seen by Dr. Rich on 07/19/2018. Hi s impression was cellulitis, lymphedema, bladder incontinence. Urological consultation is pending. Echocardiogram that was done yesterday showed ejection fraction of 76% with mild pulmonary hypertensi on. I think at this point is to continue her present regimen, probably get back on her hydralazine f or blood pressure control. Urological consultation is necessary whether this will be done inpatient or outpatient and will be up to Dr. Becerra. No further cardiac recommendation from our standpoint. CHRISTOFER/NAYELY Voice ID: [id number] Report ID: [id number]
[2018-07-20] MEDS ORDERED: ENOXAPARIN 30 MG/0.3 ML SQ SCH (17:00)
== END 2018-07-20 13:49 | disposition home health service (06) ==
LOC: ER 20:58 → ERHOLD 22:28 → 4TH 23:04
PROVIDERS: ADMIT Internal Medicine; ATTEND Internal Medicine
DX: I13.0 Hypertensive heart and chronic kidney disease with heart failure and stage 1 through stage 4 chronic kidney disease, or unspecified chronic kidney disease (principal); I50.33 Acute on chronic diastolic (congestive) heart failure; N18.2 Chronic kidney disease, stage 2 (mild); G30.1 Alzheimer's disease with late onset; F02.80 Dementia in other diseases classified elsewhere, unspecified severity, without behavioral disturbance, psychotic disturbance, mood disturbance, and anxiety; E03.9 Hypothyroidism, unspecified; G25.81 Restless legs syndrome; Z88.6 Allergy status to analgesic agent; Z88.0 Allergy status to penicillin; Z88.2 Allergy status to sulfonamides; Z96.651 Presence of right artificial knee joint
CPT/HCPCS: 93005; 93306; 85025 ×3; 80048 ×2; 36415 ×2; 83735; 85610; 80076; 81003; 84484 ×2; 80053; 83880 ×2; 71045; 51702; 96374; 99285; J1940 ×4; G0378 ×2

== ENCOUNTER 2018-07-27 11:11 | Emergency (ER) | payer OTHER ==
--- OUTSIDE RECORDS SUMMARY | 2018-07-27 11:13 | XMS REPORT ---
:1935 [facility] Address [address] [place] [id number] Care Team Providers Name Role Phone Unavailable Unavailable Unavailable Problems This patient has no known problems. Allergies, Adverse Reactions, Alerts This patient has no known allergies or adverse reactions. Medications This patient has no known medications.
--- NOTE | 2018-07-27 14:05 | RAD REPORT ---
EXAM DESCRIPTION: US - Abdomen Exam Limited - 07/27/2018 1:57 pm CLINICAL HISTORY: Abdominal pain COMPARISON: None. FINDINGS: No gallstones, sludge or other abnormalities within the gallbladder lumen. There is no wal l thickening or pericholecystic fluid. No common duct stone or biliary tree dilatation identified. IMPRESSION: Normal gallbladder and biliary tree ultrasound.
[2018-07-27 14:15] LABS: Bilirubin Direct 0.1 mg/dL (0-0.2); Bilirubin Total 0.8 mg/dL (0.2-1.0); Potassium 3.8 mmol/L (3.5-5.1); Protein, Total 7.9 g/dL (6.4-8.2)
[2018-07-27 14:30] LABS: Absolute Lymphocytes (CBC) 1.6 K/uL (0.7-4.9); Absolute Monocytes 0.6 K/uL (0.1-1.3); Absolute Neutrophil 3.3 K/uL (1.8-8.0); Basophils % 0.5 % (0-1.3); Eosinophils % 2.4 % (0-4.4); Hematocrit 32.3 % (36.0-45.0); Lymphocytes % 28.4 % (15.3-44.8); MPV 9.3 fL (7.6-11.3); Monocytes % 10.2 % (3.3-12.3); RBC Red Blood Cell Count 3.44 M/uL (3.86-4.86)
[2018-07-27] MEDS ORDERED: ONDANSETRON 4 MG/2 ML VIAL ONE (14:34)
[2018-07-27] MEDS ORDERED: ACETAMINOPHEN 325 MG TABLET ONE (14:34)
--- NOTE | 2018-07-27 15:19 | RAD REPORT ---
EXAM DESCRIPTION: CTAbdomen Pelvis W Contrast - 07/27/2018 3:03 pm CLINICAL HISTORY: Abdominal pain. right sided abdominal pain, IV ONLY COMPARISON: Abdomen Exam Limited dated 07/27/2018 TECHNIQUE: Biphasic CT imaging of the abdomen and pelvis was performed with 100 ml non-ionic IV cont rast. All CT scans are performed using dose optimization technique as appropriate and may include automated exposure control or mA/KV adjustment according to patient size. FINDINGS: Mild dependent subsegmental atelectasis in both posterior lung bases. The liver contains a small low-density lesion in the right lobe, incompletely assessed. The spleen is normal. Small hiatal hernia. Mild thickening of both adrenal glands is seen, greater on the right. P ancreas is unremarkable. No renal mass identified. No bowel obstruction, free air, free fluid or abscess. Prominent colonic diverticulosis without diver ticulitis. The appendix is normal. No evidence of significant lymphadenopathy. 6.0 x 4.7 cm cystic lesion is seen in the posterior pelvis. Mild degenerative anterolisthesis of L4 on 5 seen without acute fracture. IMPRESSION: No acute intra-abdominal or pelvic finding. 6.0 x 4.7 cm cystic lesion in the posterior pelvis, may be related to an ovarian cystic mass. In this age group, an ovarian neoplasm would be a concern. Nonemergent MR pelvis with contrast is recommende d for further assessment.
--- NOTE | 2018-07-27 16:20 | EDPHYS ---
Physician Documentation [facility] Name: Joyce Ramírez Age: 82 yrs Sex: Female : 1935 Arrival Date: 07/27/2018 Time: 11:14 Bed 16 Private MD: Arthur Becerra ED Physician Robert Bernal HPI: 07/27 13:21 This 82 yrs old Female presents to ER via Ambulatory with complaints of PAIN jmm ON RIGHT SIDE. 13:21 The patient presents with abdominal pain. Onset: The symptoms/episode began/occurred jmm gradually, 1 day(s) ago. The symptoms radiate to. Associated signs and symptoms: Pertinent positives: nausea. The symptoms are described as achy. This is an 82 year old female with a history of CHF, GERD, HTN, HLP that presents to the ED with complaints of right upper abdominal pain, nausea after eating last night. Denies fever. . Historical: - Allergies: 11:38 MONTSERRAT INHIBITORS; hj 11:38 Aspirin; hj 11:38 Beta-Blockers (Beta-Adrenergic Blocking Agts); hj 11:38 CALCIUM CHANNEL BLOCKING AGENTS-PHENYLALKYLAMINES; hj 11:38 Codeine; hj 11:38 Demerol; hj 11:38 Doxycycline; hj 11:38 Levofloxacin; hj 11:38 PENICILLINS; hj 11:38 Ctmchbf-Bku-Etb Reductase Inhibitors; hj 11:38 Sulfa (Sulfonamide Antibiotics); hj 11:38 tolterodine; hj - Home Meds: 13:05 Flonase 50 mcg/actuation Nasal [place] 1 spray once daily [Active]; furosemide 80 mg Oral rb1 tab 1 tab once daily [Active]; hydralazine 25 mg Oral tab 1 tab daily [Active]; Iron CR 65 mg Oral daily [Active]; levothyroxine 112 mcg tab [Active]; loratadine 10 mg Oral tab 1 tab once daily [Active]; magnesium oxide 500 mg Oral cap daily [Active]; olapatadine [Active]; pramipexole 1.5 mg Oral TbER 1 tab once daily [Active]; ropinirole 0.5 mg Oral tab 1 tab daily [Active]; - PMHx: 11:38 Anemia; Cellulitis; CHF; GERD; Hyperlipidemia; Hypertension; Hypothyroidism; hj - PSHx: 11:38 Hysterectomy; right knee replacement; hj - Immunization history:: Adult Immunizations up to date. - Social history:: Smoking status: Patient/guardian denies using tobacco. - Ebola Screening: : Patient negative for fever greater than or equal to 101.5 degrees Fahrenheit, and additional compatible Ebola Virus Disease symptoms. ROS: 13:21 Constitutional: Negative for fever, chills, and weight loss, Cardiovascular: Negative jmm for chest pain, palpitations, and edema, Respiratory: Negative for shortness of breath, cough, wheezing, and pleuritic chest pain. 13:21 Abdomen/GI: Positive for abdominal pain, nausea. 13:21 All other systems are negative. Exam: 13:21 Constitutional: This is a well developed, well nourished patient who is awake, alert, jmm and in no acute distress. Head/Face: atraumatic. Eyes: EOMI, no conjunctival erythema appreciated ENT: Moist Mucus Membranes Neck: Trachea midline, Supple Chest/axilla: Normal chest wall appearance and motion. Cardiovascular: Regular rate and rhythm. No edema appreciated Respiratory: Normal respirations, no respiratory distress appreciated 13:21 Back: Normal ROM Skin: General appearance color normal MS/ Extremity: Moves all extremities, no obvious deformities appreciated, no edema noted to the lower extremities Neuro: Awake and alert, normal gait Psych: Behavior is normal, Mood is normal, Patient is cooperative and pleasant 13:21 Abdomen/GI: Inspection: abdomen appears normal, Palpation: soft, mild abdominal tenderness, in the right upper quadrant. Vital Signs: 11:38 BP 155 / 66; Pulse 58; Resp 18; Temp 97.6(TE); Pulse Ox 96% on R/A; Weight 80.74 kg; hj Height 5 ft. 4 in. (162.56 cm); Pain 6/10; 12:34 BP 146 / 58; Pulse 59; Resp 18; Pulse Ox 98% on R/A; Pain 6/10; hj 13:30 BP 163 / 59; Pulse 65; Resp 16; Pulse Ox 99% on R/A; rb1 14:30 BP 137 / 70; Pulse 67; Resp 17; Pulse Ox 97% on R/A; Pain 7/10; rb1 15:30 BP 134 / 57; Pulse 67; Resp 16; Pulse Ox 96% on R/A; Pain 5/10; rb1 11:38 Body Mass Index 30.55 (80.74 kg, 162.56 cm) MDM: 13:19 Patient medically screened. [facility] 16:13 Data reviewed: vital signs, nurses notes. Counseling: I had a detailed discussion with [facility] the patient and/or guardian regarding: the historical points, exam findings, and any diagnostic results supporting the discharge/admit diagnosis, radiology results, the need for outpatient follow up, to return to the emergency department if symptoms worsen or persist or if there are any questions or concerns that arise at home. ED course: I discussed the patient with Dr. Becerra whom will follow up with the patient on Tuesday. Patient given strict return precautions for increased pain, fever, or any other concerning symptoms. patient and family understood and agrees with the plan of care. . 07/27 13:20 Order name: Basic Metabolic Panel; Complete Time: 14:18 [facility] 07/27 13:20 Order name: CBC with Diff; Complete Time: 14:53 [facility] 07/27 13:20 Order name: Creatinine for Radiology; Complete Time: 14:18 [facility] 07/27 13:20 Order name: Hepatic Function; Complete Time: 14:18 [facility] 07/27 13:20 Order name: Lipase; Complete Time: 14:18 [facility] 07/27 13:20 Order name: US Abdomen Limited; Complete Time: 14:18 [facility] 07/27 13:20 Order name: IV Saline Lock; Complete Time: 13:54 [facility] 07/27 13:20 Order name: Labs collected and sent; Complete Time: 13:54 [facility] 07/27 14:20 Order name: CT Abd/Pelvis - W/Contrast; Complete Time: 15:24 [facility] 07/27 16:20 Order name: Urine Dipstick-Ancillary (obtain specimen); Complete Time: 19:42 [facility] Administered Medications: 14:26 Drug: Zofran 4 mg Route: IVP; Site: right antecubital; rb1 14:40 Follow up: Response: No adverse reaction; Nausea is decreased rb1 14:27 Drug: Tylenol 650 mg Route: PO; rb1 15:00 Follow up: Response: No adverse reaction; Pain is decreased rb1 Disposition: 07/28 06:57 Co-signature as Attending Physician, Robert Bernal MD I agree with the assessment and kdr plan of care. Disposition: 07/27/18 16:27 Discharged to Home. Impression: Generalized abdominal pain. - Condition is Stable. - Discharge Instructions: Abdominal Pain, Adult. - Medication Reconciliation Form, Thank You Letter, Antibiotic Education, Prescription Opioid Use form. - Follow up: Arthur Becerra MD; When: August 01; Reason: Recheck today's complaints, Continuance of care, Re-evaluation by your physician. Signatures: Dispatcher [employer] EDMS Robert Bernal MD MD [facility] Jerrell Giordano PA PA [facility] Akil Stover, RN RN Lou Kim, RN RN rb1 Corrections: (The following items were deleted from the chart) 07/27 16:20 16:19 07/27/2018 16:19 Discharged to Home. Impression: Unspecified abdominal pain. [facility] Condition is Stable. Forms are Medication Reconciliation Form, Thank You Letter, Antibiotic Education, Prescription Opioid Use. Follow up: Arthur Becerra; When: 08/01/2018; Reason: Recheck today's complaints, Continuance of care, Re-evaluation by your physician. [facility] 17:14 16:27 07/27/2018 16:27 Discharged to Home. Impression: Generalized abdominal pain. rb1 Condition is Stable. Forms are Medication Reconciliation Form, Thank You Letter, Antibiotic Education, Prescription Opioid Use. Follow up: Arthur Becerra; When: August 01; Reason: Recheck today's complaints, Continuance of care, Re-evaluation by your physician. [facility]
--- NOTE | 2018-07-27 16:20 | ER ---
Nurse's Notes [facility] Name: Joyce Ramírez Age: 82 yrs Sex: Female : 1935 Arrival Date: 07/27/2018 Time: 11:14 Bed 16 Private MD: Arthur Becerra Diagnosis: Generalized abdominal pain Presentation: 07/27 11:35 Presenting complaint: Patient states: daughter, shes been having pain on her R upper hj abd all night last night and shes been having it today too; denies N/V; denies diarrhea;. Transition of care: patient was not received from another setting of care. Onset of symptoms was July 27, 2018. Risk Assessment: Do you want to hurt yourself or someone else? Patient reports no desire to harm self or others. Initial Sepsis Screen: Does the patient meet any 2 criteria? No. Patient's initial sepsis screen is negative. Does the patient have a suspected source of infection? No. Patient's initial sepsis screen is negative. Care prior to arrival: None. 11:35 Method Of Arrival: Ambulatory hj 11:35 Acuity: BRITTANI 3 hj Historical: - Allergies: 11:38 MONTSERRAT INHIBITORS; hj 11:38 Aspirin; hj 11:38 Beta-Blockers (Beta-Adrenergic Blocking Agts); hj 11:38 CALCIUM CHANNEL BLOCKING AGENTS-PHENYLALKYLAMINES; hj 11:38 Codeine; hj 11:38 Demerol; hj 11:38 Doxycycline; hj 11:38 Levofloxacin; hj 11:38 PENICILLINS; hj 11:38 Kuiqxvq-Ahc-Bjx Reductase Inhibitors; hj 11:38 Sulfa (Sulfonamide Antibiotics); hj 11:38 tolterodine; hj - Home Meds: 13:05 Flonase 50 mcg/actuation Nasal spsn 1 spray once daily [Active]; furosemide 80 mg Oral rb1 tab 1 tab once daily [Active]; hydralazine 25 mg Oral tab 1 tab daily [Active]; Iron CR 65 mg Oral daily [Active]; levothyroxine 112 mcg tab [Active]; loratadine 10 mg Oral tab 1 tab once daily [Active]; magnesium oxide 500 mg Oral cap daily [Active]; olapatadine [Active]; pramipexole 1.5 mg Oral TbER 1 tab once daily [Active]; ropinirole 0.5 mg Oral tab 1 tab daily [Active]; - PMHx: 11:38 Anemia; Cellulitis; CHF; GERD; Hyperlipidemia; Hypertension; Hypothyroidism; hj - PSHx: 11:38 Hysterectomy; right knee replacement; hj - Immunization history:: Adult Immunizations up to date. - Social history:: Smoking status: Patient/guardian denies using tobacco. - Ebola Screening: : Patient negative for fever greater than or equal to 101.5 degrees Fahrenheit, and additional compatible Ebola Virus Disease symptoms. Screenin:05 Abuse screen: Denies threats or abuse. Nutritional screening: No deficits noted. rb1 Tuberculosis screening: No symptoms or risk factors identified. Fall Risk None identified. Assessment: 13:05 General: Appears in no apparent distress. comfortable, Behavior is calm, cooperative, rb1 Reports chills for. Pain: Complains of pain in right upper quadrant Pain currently is 7 out of 10 on a pain scale. Pain began 1 day ago. Neuro: Level of Consciousness is awake, alert, obeys commands, Oriented to person, place, time, situation. Cardiovascular: Capillary refill < 3 seconds is brisk in bilateral fingers. Respiratory: Airway is patent Respiratory effort is even, unlabored, Respiratory pattern is regular, symmetrical. GI: No signs and/or symptoms were reported involving the gastrointestinal system. : No signs and/or symptoms were reported regarding the genitourinary system. Derm: Skin is pink, warm \T\ dry. Vital Signs: 11:38 BP 155 / 66; Pulse 58; Resp 18; Temp 97.6(TE); Pulse Ox 96% on R/A; Weight 80.74 kg; Height 5 ft. 4 in. (162.56 cm); Pain 6/10; 12:34 BP 146 / 58; Pulse 59; Resp 18; Pulse Ox 98% on R/A; Pain 6/10; hj 13:30 BP 163 / 59; Pulse 65; Resp 16; Pulse Ox 99% on R/A; rb1 14:30 BP 137 / 70; Pulse 67; Resp 17; Pulse Ox 97% on R/A; Pain 7/10; rb1 15:30 BP 134 / 57; Pulse 67; Resp 16; Pulse Ox 96% on R/A; Pain 5/10; rb1 11:38 Body Mass Index 30.55 (80.74 kg, 162.56 cm) ED Course: 11:14 Patient arrived in ED. ag5 11:15 Arthur Becerra MD is Private Physician. 5 11:37 Triage completed. hj 11:38 Arm band placed on right wrist. hj 13:05 Patient has correct armband on for positive identification. Placed in gown. Bed in low rb1 position. Call light in reach. Side rails up X 1. Pulse ox on. NIBP on. Warm blanket given. 13:07 Jerrell Giordano PA is PHCP. [facility] 13:08 Robert Bernal MD is Attending Physician. [facility] 13:15 Lou Kim, RN is Primary Nurse. rb1 13:45 Inserted saline lock: 22 gauge in right antecubital area, using aseptic technique. rb1 Blood collected. 13:57 US Abdomen Limited In Process Unspecified. EDMS 14:58 CT completed. Patient tolerated procedure well. Patient moved to CT via stretcher. Patient moved back from CT. 15:03 CT Abd/Pelvis - W/Contrast In Process Unspecified. EDMS 16:19 Arthur Becerra MD is Referral Physician. m 16:27 Arthur Becerra MD is Referral Physician. [facility] 16:27 No provider procedures requiring assistance completed. rb1 16:27 IV discontinued, intact, bleeding controlled, No redness/swelling at site. Pressure rb1 dressing applied. Administered Medications: 14:26 Drug: Zofran 4 mg Route: IVP; Site: right antecubital; rb1 14:40 Follow up: Response: No adverse reaction; Nausea is decreased rb1 14:27 Drug: Tylenol 650 mg Route: PO; rb1 15:00 Follow up: Response: No adverse reaction; Pain is decreased rb1 Outcome: 16:19 Discharge ordered by . jmm 16:27 Discharge ordered by MD. jmm 17:14 Patient left the ED. rb1 17:14 Discharged to home via wheelchair, with family. rb1 17:14 Condition: stable 17:14 Discharge instructions given to patient, Instructed on discharge instructions, follow up and referral plans. Demonstrated understanding of instructions, follow-up care, Prescriptions given X none Signatures: Dispatcher [employer] EDAK Jerrell Giordano PA PA Inna Mason Akil Stover RN RN Lou Kim, RN RN rb1 Shira, Rashad ag5
[2018-07-27 17:43] VITALS: TEMP 97.6
[2018-07-27 17:47] VITALS: BP 134/57; O2SAT 96
== END 2018-07-27 17:14 | disposition home or self-care (01) ==
LOC: ER 11:11
DX: R10.9 Unspecified abdominal pain (principal); R11.0 Nausea; D64.9 Anemia, unspecified; I11.0 Hypertensive heart disease with heart failure; I50.9 Heart failure, unspecified; E78.5 Hyperlipidemia, unspecified; E03.9 Hypothyroidism, unspecified; K21.9 Gastro-esophageal reflux disease without esophagitis; Z79.51 Long term (current) use of inhaled steroids; Z88.6 Allergy status to analgesic agent; Z88.1 Allergy status to other antibiotic agents; Z88.5 Allergy status to narcotic agent; Z88.0 Allergy status to penicillin; Z88.2 Allergy status to sulfonamides
CPT/HCPCS: 85025; 80048; 36415; 80076; 83690; 74177; 76705; 96374; 99284; Q9967; J2405

== ENCOUNTER 2018-10-24 22:32 | Emergency (ER) | payer OTHER ==
--- OUTSIDE RECORDS SUMMARY | 2018-10-24 22:35 | XMS REPORT ---
:1935 [facility] [place] [id number] Care Team Providers Name Role Phone Unavailable Unavailable Unavailable Problems This patient has no known problems. Allergies, Adverse Reactions, Alerts This patient has no known allergies or adverse reactions. Medications This patient has no known medications.
[2018-10-24] MEDS ORDERED: NA CHLORIDE 0.9% 250 ML ONE (23:08)
[2018-10-24 23:23] LABS: Potassium 4.8 mmol/L (3.5-5.1)
[2018-10-25 00:34] LABS: Hematocrit 32.5 % (36.0-45.0); Lymphocytes % 22.9 % (15.3-44.8); MPV 9.6 fL (7.6-11.3); RBC Red Blood Cell Count 3.52 M/uL (3.86-4.86)
[2018-10-25 00:35] LABS: Absolute Lymphocytes (CBC) 1.5 K/uL (0.7-4.9); Basophils % 0.6 % (0-1.3)
[2018-10-25] MEDS ORDERED: CLINDAMYCIN 600MG/D5W 600 MG/50 ML BAG IV ONE (00:57)
[2018-10-25] MEDS ORDERED: NA CHLORIDE 0.9% 250 ML ONE (00:57)
--- NOTE | 2018-10-25 01:19 | ER ---
Nurse's Notes [facility] Name: Joyce Ramírez Age: 82 yrs Sex: Female : 1935 Arrival Date: 10/24/2018 Time: 22:34 Bed 24 Private MD: Diagnosis: Edema, unspecified;Dehydration;Lymphedema, not elsewhere classified;Cellulitis of right lower limb;Cellulitis of left lower limb Presentation: 10/24 22:34 Presenting complaint: EMS states: patient was dizzy while she was using her walker and mg2 fell backwards from a standing position, LOC for 2 sec, not on blood thinner, she has this bilateral leg cellulitis for 2 weeks now and her primary care cancelled her appt today for unknown reason. BGL 132 mg/dl. Transition of care: patient was not received from another setting of care. Onset of symptoms was October 24, 2018. Risk Assessment: Do you want to hurt yourself or someone else? Patient reports no desire to harm self or others. Initial Sepsis Screen: Does the patient meet any 2 criteria? No. Patient's initial sepsis screen is negative. Does the patient have a suspected source of infection? Yes:. Care prior to arrival: None. 22:34 Method Of Arrival: EMS: [facility] mg2 22:34 Acuity: BRITTANI 3 mg2 Historical: - Allergies: 22:47 MONTSERRAT INHIBITORS; mg2 22:47 Aspirin; mg2 22:47 Beta-Blockers (Beta-Adrenergic Blocking Agts); mg2 22:47 CALCIUM CHANNEL BLOCKING AGENTS-PHENYLALKYLAMINES; mg2 22:47 Codeine; mg2 22:47 Demerol; mg2 22:47 Doxycycline; mg2 22:47 Levofloxacin; mg2 22:47 PENICILLINS; mg2 22:47 Lxujpwa-Fic-Xlg Reductase Inhibitors; mg2 22:47 Sulfa (Sulfonamide Antibiotics); mg2 22:47 tolterodine; mg2 - Home Meds: 22:47 Flonase 50 mcg/actuation Nasal spsn 1 spray once daily [Active]; furosemide 80 mg Oral mg2 tab 1 tab once daily [Active]; hydralazine 25 mg Oral tab 1 tab daily [Active]; Iron CR 65 mg Oral daily [Active]; levothyroxine 112 mcg tab [Active]; loratadine 10 mg Oral tab 1 tab once daily [Active]; magnesium oxide 500 mg Oral cap daily [Active]; olapatadine [Active]; pramipexole 1.5 mg Oral TbER 1 tab once daily [Active]; ropinirole 0.5 mg Oral tab 1 tab daily [Active]; - PMHx: 22:47 Anemia; Cellulitis; CHF; GERD; Hyperlipidemia; Hypertension; Hypothyroidism; mg2 - Immunization history:: Flu vaccine is not up to date. - Social history:: Smoking status: Patient/guardian denies using tobacco, Patient/guardian denies using alcohol, street drugs, IV drugs. - Ebola Screening: : No symptoms or risks identified at this time. - Family history:: not pertinent. - Hospitalizations: : No recent hospitalization is reported. Screenin:48 Abuse screen: Denies threats or abuse. Denies injuries from another. Nutritional mg2 screening: No deficits noted. Tuberculosis screening: No symptoms or risk factors identified. Fall Risk Fall in past 12 months (25 points). IV access (20 points). Assessment: 23:43 General: Appears in no apparent distress. comfortable, Behavior is calm, cooperative. mg2 Pain: Complains of pain in right leg and left leg Pain does not radiate. Pain currently is 9 out of 10 on a pain scale. Quality of pain is described as aching, Pain began gradually, Is intermittent. Neuro: Level of Consciousness is awake, alert, obeys commands, Oriented to person, place, time, situation. Neuro: Reports loss of consciousness for 2 secs. Cardiovascular: Capillary refill < 3 seconds Patient's skin is warm and dry. Respiratory: Airway is patent Respiratory effort is even, unlabored, Respiratory pattern is regular, symmetrical. GI: No signs and/or symptoms were reported involving the gastrointestinal system. : No signs and/or symptoms were reported regarding the genitourinary system. EENT: No signs and/or symptoms were reported regarding the EENT system. Derm: Skin is red, cellulitis in both legs. Musculoskeletal: Swelling present in right leg and left leg. 10/25 01:10 Reassessment: No changes from previously documented assessment. Patient and/or family lc1 updated on plan of care and expected duration. Pain level reassessed. Patient is alert, oriented x 3, equal unlabored respirations, skin warm/dry/pink. 02:00 Reassessment: No changes from previously documented assessment. Patient and/or family lc1 updated on plan of care and expected duration. Pain level reassessed. Patient is alert, oriented x 3, equal unlabored respirations, skin warm/dry/pink. Patient states symptoms have improved. Vital Signs: 10/24 22:43 BP 150 / 86; Pulse 78; Resp 18; Temp 97.7; Pulse Ox 95% on R/A; Weight 82.55 kg; Height mg2 5 ft. 4 in. (162.56 cm); Pain 9/10; 23:42 Pulse 65; Resp 18; Pulse Ox 97% on R/A; mg2 10/25 00:32 BP 112 / 45; Pulse 62; Resp 18; Pulse Ox 97% on R/A; mg2 01:25 BP 139 / 65; Pulse 73; Resp 16; Pulse Ox 97% on R/A; lc1 02:15 BP 132 / 66; Pulse 69; Resp 16; Pulse Ox 97% on R/A; lc1 10/24 22:43 Body Mass Index 31.24 (82.55 kg, 162.56 cm) mg2 ED Course: 10/24 22:34 Patient arrived in ED. mg2 22:35 Uday Scott MD is Attending Physician. rn 22:43 Triage completed. mg2 23:10 CT Head Brain wo Cont In Process Unspecified. EDMS 23:12 Joel Knight, RN is Primary Nurse. mg2 23:15 First set of blood cultures drawn by me, Second set of blood cultures drawn by me. mg2 23:40 No provider procedures requiring assistance completed. Inserted saline lock: 20 gauge mg2 in right wrist, using aseptic technique. Blood collected. 23:41 Patient has correct armband on for positive identification. Pulse ox on. NIBP on. Door mg2 closed. Warm blanket given. 23:42 Arm band placed on. mg2 10/25 01:10 Report received from Joel. lc1 01:25 No apparent distress. lc1 01:25 assisted to use bedpan, removed saturated angelika pad, pt voided 50 ml of urine, new pad lc1 placed. 02:15 Awaiting disposition. lc1 02:15 IV discontinued, bleeding controlled, Pressure dressing applied. lc1 Administered Medications: 10/24 23:13 Drug: NS 0.9% 250 ml Route: IV; Rate: 1 bolus; Site: right hand; mg2 10/25 03:25 Follow up: Response: No adverse reaction; IV Status: Completed infusion lc1 01:05 Drug: Clindamycin 600 mg Route: IVPB; Infused Over: 30 mins; Site: right wrist; lc1 03:25 Follow up: Response: No adverse reaction; IV Status: Completed infusion lc1 01:05 Drug: NS 0.9% 250 ml Route: IV; Rate: 1 bolus; Site: right wrist; lc1 03:25 Follow up: Response: No adverse reaction; IV Status: Completed infusion 1 Outcome: 01:18 Discharge ordered by . rn 01:25 Condition: good lc1 02:15 Discharged to home via wheelchair, with family. lc1 02:15 Discharge instructions given to patient, family, Instructed on discharge instructions, follow up and referral plans. medication usage, Demonstrated understanding of instructions, follow-up care, medications, Prescriptions given X 1. 03:29 [address] [facility] Signatures: Dispatcher [employer] EDMS Uday Scott MD MD rn Calhoun, Lisa 1 Joel Knight RN RN mg2
--- NOTE | 2018-10-25 01:20 | EDPHYS ---
Physician Documentation [facility] Name: Joyce Ramírez Age: 82 yrs Sex: Female : 1935 Arrival Date: 10/24/2018 Time: 22:34 Bed 24 Private MD: ED Physician Uday Scott HPI: 10/25 01:12 This 82 yrs old Female presents to ER via EMS with complaints of Dizziness, rn Fall Injury. 01:12 The patient presents with dizziness, lightheadedness. Onset: The symptoms/episode rn began/occurred today. Modifying factors: The symptoms are alleviated by nothing, the symptoms are aggravated by standing up, changing position. Severity of symptoms: At their worst the symptoms were mild in the emergency department the symptoms are unchanged. The patient has not experienced similar symptoms in the past. Reports increased redness of legs, was supposed to see pcp tomorrow but appt cancelled due to daughter leaving out of town and not able to drive. Reports lightheaded and fell backward today, no LOC, hit head, not on blood thinners. . 01:12 Family member reports non-compliant with lasix.. rn Historical: - Allergies: 10/24 22:47 MONTSERRAT INHIBITORS; mg2 22:47 Aspirin; mg2 22:47 Beta-Blockers (Beta-Adrenergic Blocking Agts); mg2 22:47 CALCIUM CHANNEL BLOCKING AGENTS-PHENYLALKYLAMINES; mg2 22:47 Codeine; mg2 22:47 Demerol; mg2 22:47 Doxycycline; mg2 22:47 Levofloxacin; mg2 22:47 PENICILLINS; mg2 22:47 Khzypqi-Ode-Grw Reductase Inhibitors; mg2 22:47 Sulfa (Sulfonamide Antibiotics); mg2 22:47 tolterodine; mg2 - Home Meds: 22:47 Flonase 50 mcg/actuation Nasal spsn 1 spray once daily [Active]; furosemide 80 mg Oral mg2 tab 1 tab once daily [Active]; hydralazine 25 mg Oral tab 1 tab daily [Active]; Iron CR 65 mg Oral daily [Active]; levothyroxine 112 mcg tab [Active]; loratadine 10 mg Oral tab 1 tab once daily [Active]; magnesium oxide 500 mg Oral cap daily [Active]; olapatadine [Active]; pramipexole 1.5 mg Oral TbER 1 tab once daily [Active]; ropinirole 0.5 mg Oral tab 1 tab daily [Active]; - PMHx: 22:47 Anemia; Cellulitis; CHF; GERD; Hyperlipidemia; Hypertension; Hypothyroidism; mg2 - Immunization history:: Flu vaccine is not up to date. - Social history:: Smoking status: Patient/guardian denies using tobacco, Patient/guardian denies using alcohol, street drugs, IV drugs. - Ebola Screening: : No symptoms or risks identified at this time. - Family history:: not pertinent. - Hospitalizations: : No recent hospitalization is reported. ROS: 10/25 01:12 Constitutional: Negative for fever, chills, and weight loss, Eyes: Negative for injury, rn pain, redness, and discharge, Neck: Negative for injury, pain, and swelling, Cardiovascular: Negative for chest pain, palpitations, and edema, Respiratory: Negative for shortness of breath, cough, wheezing, and pleuritic chest pain, Abdomen/GI: Negative for abdominal pain, nausea, vomiting, diarrhea, and constipation, MS/Extremity: + lower ext swelling and redness Skin: + redness of skin Neuro: Negative for headache, numbness, tingling, and seizure. Exam: 01:12 Constitutional: This is a well developed, well nourished patient who is awake, alert, rn and in no acute distress. Head/Face: Normocephalic, atraumatic. ENT: dry MM Cardiovascular: Regular rate and rhythm. No pulse deficits. Respiratory: Lungs have equal breath sounds bilaterally, clear to auscultation. No increased work of breathing, no retractions or nasal flaring. Abdomen/GI: soft, non-tender MS/ Extremity: Pulses equal, no cyanosis. Neurovascular intact. Equal circumference. + redness and weeping bilateral legs R>L Neuro: Awake and alert, GCS 15, oriented to person, place, time, and situation. Cranial nerves II-XII grossly intact. Motor strength 4/5 in all extremities. Sensory grossly intact. Cerebellar exam normal. Vital Signs: 10/24 22:43 BP 150 / 86; Pulse 78; Resp 18; Temp 97.7; Pulse Ox 95% on R/A; Weight 82.55 kg; Height mg2 5 ft. 4 in. (162.56 cm); Pain 9/10; 23:42 Pulse 65; Resp 18; Pulse Ox 97% on R/A; mg2 10/25 00:32 BP 112 / 45; Pulse 62; Resp 18; Pulse Ox 97% on R/A; mg2 01:25 BP 139 / 65; Pulse 73; Resp 16; Pulse Ox 97% on R/A; lc1 02:15 BP 132 / 66; Pulse 69; Resp 16; Pulse Ox 97% on R/A; lc1 10/24 22:43 Body Mass Index 31.24 (82.55 kg, 162.56 cm) mg2 MDM: 10/24 22:35 Patient medically screened. rn 10/25 01:12 Differential diagnosis: generalized weakness, hypovolemia, idiopathic dizziness, rn dehydration, cellulitis, lymphedema. Data reviewed: vital signs, nurses notes, lab test result(s), radiologic studies, and as a result, I will discharge patient. Counseling: I had a detailed discussion with the patient and/or guardian regarding: the historical points, exam findings, and any diagnostic results supporting the discharge/admit diagnosis, lab results, radiology results, the need for outpatient follow up, to return to the emergency department if symptoms worsen or persist or if there are any questions or concerns that arise at home. Special discussion: I discussed with the patient/guardian in detail that at this point there is no indication for admission to the hospital. It is understood, however, that if the symptoms persist or worsen the patient needs to return immediately for re-evaluation. ED course: Consulted with Dr. Becerra, states no indication for admission at this time, normal cbc, neg procal, neg ct head. Dr. Becerra states can call and organize transportation if that is the issue. Return precautions given and understood. . 10/24 22:35 Order name: CBC with Diff; Complete Time: 00:40 rn 10/24 22:35 Order name: Basic Metabolic Panel; Complete Time: 23:40 rn 10/24 22:35 Order name: Blood Culture Adult (2) rn 10/24 22:35 Order name: Procalcitonin; Complete Time: 00:16 rn 10/24 22:38 Order name: CT Head Brain wo Cont rn 10/24 22:35 Order name: IV Start; Complete Time: 23:04 rn Administered Medications: 10/24 23:13 Drug: NS 0.9% 250 ml Route: IV; Rate: 1 bolus; Site: right hand; mg2 10/25 03:25 Follow up: Response: No adverse reaction; IV Status: Completed infusion lc1 01:05 Drug: Clindamycin 600 mg Route: IVPB; Infused Over: 30 mins; Site: right wrist; 1 03:25 Follow up: Response: No adverse reaction; IV Status: Completed infusion lc1 01:05 Drug: NS 0.9% 250 ml Route: IV; Rate: 1 bolus; Site: right wrist; 1 03:25 Follow up: Response: No adverse reaction; IV Status: Completed infusion 1 Disposition: 10/25/18 01:18 Discharged to Home. Impression: Edema, unspecified, Dehydration, Lymphedema, not elsewhere classified, Cellulitis of right lower limb, Cellulitis of left lower limb. - Condition is Stable. - Discharge Instructions: Cellulitis, Adult, Lymphedema. - Prescriptions for Clindamycin HCl 300 mg Oral Capsule - take 1 capsule by ORAL route every 6 hours for 10 days; 40 capsule. - Medication Reconciliation Form, Thank You Letter, Antibiotic Education, Prescription Opioid Use form. - Follow up: Private Physician; When: As needed; Reason: Recheck today's complaints, Re-evaluation by your physician. - Problem is an ongoing problem. - Symptoms have improved. Signatures: Dispatcher [employer] EDMS Uday Scott MD MD rn Calhoun, Yuliana [facility] Joel Knight RN RN mg2 Corrections: (The following items were deleted from the chart) 01:14 01:12 Reports increased redness of legs, was supposed to see pcp tomorrow but appt rn cancelled due to daughter leaving out of town and not able to drive. Reports lightheaded and fell backward today, no LOC, hit head, not on blood thinners. . rn 03:29 01:18 10/25/2018 01:18 Discharged to Home. Impression: Edema, unspecified; Dehydration; lc1 Lymphedema, not elsewhere classified; Cellulitis of right lower limb; Cellulitis of left lower limb. Condition is Stable. Forms are Medication Reconciliation Form, Thank You Letter, Antibiotic Education, Prescription Opioid Use. Follow up: Private Physician; When: As needed; Reason: Recheck today's complaints, Re-evaluation by your physician. Problem is an ongoing problem. Symptoms have improved. rn
[2018-10-25 03:41] VITALS: TEMP 97.7
[2018-10-25 03:42] VITALS: O2SAT 97
[2018-10-25 03:46] VITALS: BP 132/66
--- NOTE | 2018-10-25 11:18 | RAD REPORT ---
EXAM DESCRIPTION: CT - Head Brain Wo Cont - 10/25/2018 1:57 am CLINICAL HISTORY: Fall, head injury COMPARISON: None. TECHNIQUE: CT HEAD WITHOUT IV CONTRAST on 10/24/2018 10:38 PM CDT This exam was performed according to our departmental dose-optimization program, which includes autom ated exposure control, adjustment of the mA and/or kV according to patient size and/or use of iterati ve reconstruction technique. FINDINGS: There is no acute hemorrhage, mass effect or midline shift. Smith-white differentiation is preserved. There is no hydrocephalus. There is no significant volume loss for age. There are mild pat alexi hypodensities within the periventricular and subcortical white matter, consistent with microangio pathic ischemic changes. The calvarium is intact. Orbits and globes are unremarkable. The paranasal sinuses are clear. Mastoid air cells are clear. IMPRESSION: No acute intracranial findings. Electronically signed by: Steve Beltrán MD 10/24/2018 11:18 PM CDT Due to temporary technical issues with the PACS/Fluency reporting system, reports are being signed by the in house radiologist as a courtesy to ensure prompt reporting. The interpreting radiologist is f ully responsible for the content of the report.
== END 2018-10-25 03:29 | disposition home or self-care (01) ==
LOC: ER 22:32
DX: L03.116 Cellulitis of left lower limb (principal); L03.115 Cellulitis of right lower limb; E86.0 Dehydration; I89.0 Lymphedema, not elsewhere classified; D64.9 Anemia, unspecified; I11.0 Hypertensive heart disease with heart failure; I50.9 Heart failure, unspecified; E78.5 Hyperlipidemia, unspecified; E03.9 Hypothyroidism, unspecified; Z88.6 Allergy status to analgesic agent; Z88.1 Allergy status to other antibiotic agents; Z88.5 Allergy status to narcotic agent; Z88.0 Allergy status to penicillin; Z88.2 Allergy status to sulfonamides; Z88.8 Allergy status to other drugs, medicaments and biological substances; Z79.51 Long term (current) use of inhaled steroids
CPT/HCPCS: 36415; 70450; 80048; 84145; 85025; 87040; 99284

== ENCOUNTER 2018-12-04 19:11 | Emergency (ER) | payer OTHER ==
[2011-06-14 09:51] VITALS: BP 158/84
--- OUTSIDE RECORDS SUMMARY | 2018-12-04 19:13 | XMS REPORT ---
:1935 [facility] [place] [address] Care Team Providers Name Role Phone Unavailable Unavailable Unavailable Problems This patient has no known problems. Allergies, Adverse Reactions, Alerts This patient has no known allergies or adverse reactions. Medications This patient has no known medications.
--- NOTE | 2018-12-04 20:47 | ER ---
Nurse's Notes [facility] Name: Joyce Ramírez Age: 83 yrs Sex: Female : 1935 Arrival Date: 12/04/2018 Time: 19:15 Bed 16 Private MD: Arthur Becerra Diagnosis: Hypertension secondary to other renal disorders Presentation: 12/04 19:31 Presenting complaint: Child states: increased blood pressure since Tuesday. PCP Dr. tino Mckeon was contacted Tuesday and today trying to change the medication since pt can not take channel blockers. Transition of care: patient was not received from another setting of care. Onset of symptoms is unknown. Risk Assessment: Do you want to hurt yourself or someone else? Patient reports no desire to harm self or others. Initial Sepsis Screen: Does the patient meet any 2 criteria? No. Patient's initial sepsis screen is negative. Does the patient have a suspected source of infection? No. Patient's initial sepsis screen is negative. Care prior to arrival: None. 19:31 Method Of Arrival: Wheelchair ak1 19:31 Acuity: BRITTANI 3 ak1 Triage Assessment: 19:34 General: Appears in no apparent distress. Behavior is calm, cooperative. ak1 Historical: - Allergies: 19:34 MONTSERRAT INHIBITORS; ak1 19:34 Aspirin; ak1 19:34 Beta-Blockers (Beta-Adrenergic Blocking Agts); ak1 19:34 CALCIUM CHANNEL BLOCKING AGENTS-PHENYLALKYLAMINES; ak1 19:34 Codeine; ak1 19:34 Demerol; ak1 19:34 Levofloxacin; ak1 19:34 Doxycycline; ak1 19:34 PENICILLINS; ak1 19:34 Ypityom-Dpq-Paq Reductase Inhibitors; ak1 19:34 tolterodine; ak1 19:34 Sulfa (Sulfonamide Antibiotics); ak1 - Home Meds: 19:34 Flonase 50 mcg/actuation Nasal spsn 1 spray once daily [Active]; furosemide 80 mg Oral ak1 tab 1 tab once daily [Active]; hydralazine 25 mg Oral tab 1 tab daily [Active]; Iron CR 65 mg Oral daily [Active]; levothyroxine 112 mcg tab [Active]; loratadine 10 mg Oral tab 1 tab once daily [Active]; magnesium oxide 500 mg Oral cap daily [Active]; olapatadine [Active]; pramipexole 1.5 mg Oral TbER 1 tab once daily [Active]; ropinirole 0.5 mg Oral tab 1 tab daily [Active]; - PMHx: 19:34 Anemia; Cellulitis; CHF; GERD; Hyperlipidemia; Hypertension; Hypothyroidism; ak1 - Immunization history:: Adult Immunizations unknown. - Social history:: Smoking status: Patient/guardian denies using tobacco. - Ebola Screening: : No symptoms or risks identified at this time. Screenin:48 Abuse screen: Denies threats or abuse. Nutritional screening: No deficits noted. lc1 Tuberculosis screening: No symptoms or risk factors identified. Fall Risk None identified. Assessment: 19:48 General: Appears in no apparent distress. Behavior is calm, cooperative. Pain: Denies lc1 pain. Neuro: No deficits noted. Cardiovascular: No deficits noted. Reports high blood pressure at home. stopped taking her blood pressure meds per Dr Becerra's instruction back in May, Has noticed some high blood pressure so family tried to notify MD, unable to get into contact with him today Denies chest pain, lightheadedness, shortness of breath. Respiratory: No deficits noted. GI: No signs and/or symptoms were reported involving the gastrointestinal system. : No signs and/or symptoms were reported regarding the genitourinary system. EENT: No signs and/or symptoms were reported regarding the EENT system. Derm: patient with bilateral lower extremity lyphadema. Musculoskeletal: No signs and/or symptoms reported regarding the musculoskeletal system. 20:44 Reassessment: No changes from previously documented assessment. Patient and/or family lc1 updated on plan of care and expected duration. Pain level reassessed. Patient is alert, oriented x 3, equal unlabored respirations, skin warm/dry/pink. Vital Signs: 19:34 BP 114 / 56; Pulse 60; Resp 20; Temp 97.8(O); Pulse Ox 99% on R/A; Weight 83.01 kg (R); ak1 Height 5 ft. 4 in. (162.56 cm) (R); Pain 4/10; 19:48 BP 139 / 45; Pulse 59; Resp 18; Pulse Ox 100% on R/A; lc1 20:30 BP 129 / 47; Pulse 55; Resp 16; Pulse Ox 98% on R/A; lc1 21:15 BP 109 / 49; Pulse 51; Resp 16; Pulse Ox 97% on R/A; Pain 0/10; lc1 19:34 Body Mass Index 31.41 (83.01 kg, 162.56 cm) ak1 19:34 pt c/o slight headache ak1 ED Course: 19:15 Patient arrived in ED. cl3 19:15 Arthur Becerra MD is Private Physician. cl3 19:32 Triage completed. ak1 19:34 Arm band placed on Patient placed in waiting room, Patient notified of wait time ak1 Patient pt given brief and gown in ER lobby restroom after urinating on her own clothing. 19:41 Yuliana Reed is Primary Nurse. lc1 19:44 Mario Rocha MD is Attending Physician. tw4 19:48 Patient has correct armband on for positive identification. Placed in gown. Side rails lc1 up X2. Pulse ox on. NIBP on. Door closed. Noise minimized. Warm blanket given. Pillow given. daughter at bedside . 20:46 Arthur Becerra MD is Referral Physician. tw4 21:00 Awaiting disposition. lc1 21:15 No provider procedures requiring assistance completed. Patient did not have IV access lc1 during this emergency room visit. Administered Medications: No medications were administered Outcome: 20:46 Discharge ordered by . tw4 21:00 Discharged to home lc1 21:00 Condition: good 21:00 Discharge instructions given to patient, family, Instructed on discharge instructions, follow up and referral plans. 21:20 Patient left the ED. lc1 Signatures: Yuliana Reed lc1 Myah Norman, RN RN ak1 Mario Rocha MD MD tw4 Chaparro Dunn cl3
--- NOTE | 2018-12-04 20:48 | EDPHYS ---
Physician Documentation [facility] Name: Joyce Ramírez Age: 83 yrs Sex: Female : 1935 Arrival Date: 12/04/2018 Time: 19:15 Bed 16 Private MD: Arthur Becerra ED Physician Mario Rocha HPI: 12/05 06:34 This 83 yrs old Female presents to ER via Wheelchair with complaints of High tw4 Blood Pressure. 06:34 The patient has elevated blood pressure and discovered this at home. Onset: The tw4 symptoms/episode began/occurred this morning. Modifying factors: The symptoms are aggravated by discontinuation of meds, The symptoms are alleviated by prescription meds. Associated signs and symptoms: The patient has no apparent associated signs or symptoms. The patient has not experienced similar symptoms in the past. Historical: - Allergies: 12/04 19:34 MONTSERRAT INHIBITORS; ak1 19:34 Aspirin; ak1 19:34 Beta-Blockers (Beta-Adrenergic Blocking Agts); ak1 19:34 CALCIUM CHANNEL BLOCKING AGENTS-PHENYLALKYLAMINES; ak1 19:34 Codeine; ak1 19:34 Demerol; ak1 19:34 Levofloxacin; ak1 19:34 Doxycycline; ak1 19:34 PENICILLINS; ak1 19:34 Heiatks-Fbp-Anp Reductase Inhibitors; ak1 19:34 tolterodine; ak1 19:34 Sulfa (Sulfonamide Antibiotics); ak1 - Home Meds: 19:34 Flonase 50 mcg/actuation Nasal spsn 1 spray once daily [Active]; furosemide 80 mg Oral ak1 tab 1 tab once daily [Active]; hydralazine 25 mg Oral tab 1 tab daily [Active]; Iron CR 65 mg Oral daily [Active]; levothyroxine 112 mcg tab [Active]; loratadine 10 mg Oral tab 1 tab once daily [Active]; magnesium oxide 500 mg Oral cap daily [Active]; olapatadine [Active]; pramipexole 1.5 mg Oral TbER 1 tab once daily [Active]; ropinirole 0.5 mg Oral tab 1 tab daily [Active]; - PMHx: 19:34 Anemia; Cellulitis; CHF; GERD; Hyperlipidemia; Hypertension; Hypothyroidism; ak1 - Immunization history:: Adult Immunizations unknown. - Social history:: Smoking status: Patient/guardian denies using tobacco. - Ebola Screening: : No symptoms or risks identified at this time. ROS: 12/05 06:34 Constitutional: Negative for fever, chills, and weight loss, Eyes: Negative for injury, tw4 pain, redness, and discharge, Cardiovascular: Negative for chest pain, palpitations, and edema, Respiratory: Negative for shortness of breath, cough, wheezing, and pleuritic chest pain, Abdomen/GI: Negative for abdominal pain, nausea, vomiting, diarrhea, and constipation, Back: Negative for injury and pain, MS/Extremity: Negative for injury and deformity, Skin: Negative for injury, rash, and discoloration. Exam: 06:34 Constitutional: This is a well developed, well nourished patient who is awake, alert, tw4 and in no acute distress. Head/Face: Normocephalic, atraumatic. Chest/axilla: Normal chest wall appearance and motion. Nontender with no deformity. No lesions are appreciated. Cardiovascular: Regular rate and rhythm with a normal S1 and S2. No gallops, murmurs, or rubs. Normal PMI, no JVD. No pulse deficits. Respiratory: Lungs have equal breath sounds bilaterally, clear to auscultation and percussion. No rales, rhonchi or wheezes noted. No increased work of breathing, no retractions or nasal flaring. Abdomen/GI: Soft, non-tender, with normal bowel sounds. No distension or tympany. No guarding or rebound. No evidence of tenderness throughout. Back: No spinal tenderness. No costovertebral tenderness. Full range of motion. MS/ Extremity: Pulses equal, no cyanosis. Neurovascular intact. Full, normal range of motion. Neuro: Awake and alert, GCS 15, oriented to person, place, time, and situation. Cranial nerves II-XII grossly intact. Motor strength 5/5 in all extremities. Sensory grossly intact. Cerebellar exam normal. Normal gait. Vital Signs: 12/04 19:34 BP 114 / 56; Pulse 60; Resp 20; Temp 97.8(O); Pulse Ox 99% on R/A; Weight 83.01 kg (R); ak1 Height 5 ft. 4 in. (162.56 cm) (R); Pain 4/10; 19:48 BP 139 / 45; Pulse 59; Resp 18; Pulse Ox 100% on R/A; lc1 20:30 BP 129 / 47; Pulse 55; Resp 16; Pulse Ox 98% on R/A; lc1 21:15 BP 109 / 49; Pulse 51; Resp 16; Pulse Ox 97% on R/A; Pain 0/10; lc1 19:34 Body Mass Index 31.41 (83.01 kg, 162.56 cm) ak1 19:34 pt c/o slight headache ak1 MDM: 19:45 Patient medically screened. tw4 12/05 06:34 Data reviewed: vital signs, nurses notes. Data interpreted: Pulse oximetry: tw4 Interpretation: normal. Physician consultation: Arthur Becerra MD regarding patient's condition, outpatient follow-up, and will see patient in office. Special discussion: I discussed with the patient/guardian in detail that at this point there is no indication for admission to the hospital. It is understood, however, that if the symptoms persist or worsen the patient needs to return immediately for re-evaluation. Administered Medications: No medications were administered Disposition: 12/04/18 20:46 Discharged to Home. Impression: Hypertension secondary to other renal disorders. - Condition is Stable. - Discharge Instructions: Hypertension, Hypertension, [id number]. - Medication Reconciliation Form, Thank You Letter, Antibiotic Education, Prescription Opioid Use form. - Follow up: Arthur Becerra MD; When: Upon discharge from the Emergency Department; Reason: If symptoms return, Recheck today's complaints, Continuance of care. - Problem is new. - Symptoms have improved. Signatures: Yuliana Reed 1 Myah Norman, RN RN ak1 Mario Rocha MD MD tw4 Corrections: (The following items were deleted from the chart) 12/04 21:20 20:46 12/04/2018 20:46 Discharged to Home. Impression: Hypertension secondary to other lc1 renal disorders. Condition is Stable. Forms are Medication Reconciliation Form, Thank You Letter, Antibiotic Education, Prescription Opioid Use. Follow up: Arthur Becerra; When: Upon discharge from the Emergency Department; Reason: If symptoms return, Recheck today's complaints, Continuance of care. Problem is new. Symptoms have improved. tw4
== END 2018-12-04 21:20 | disposition home or self-care (01) ==
LOC: ER 19:11
DX: I15.1 Hypertension secondary to other renal disorders (principal); E78.5 Hyperlipidemia, unspecified; I50.9 Heart failure, unspecified; E03.9 Hypothyroidism, unspecified; Z88.0 Allergy status to penicillin; Z88.2 Allergy status to sulfonamides; Z88.5 Allergy status to narcotic agent; Z88.6 Allergy status to analgesic agent; Z88.8 Allergy status to other drugs, medicaments and biological substances
CPT/HCPCS: 99283

== ENCOUNTER 2018-12-14 22:18 | Observation (INO) | payer OTHER ==
[2018-12-15 00:06] LABS: Urine Blood TRACE (NEG); Urine Glucose NEGATIVE (NEG); Urine Protein NEGATIVE (NEG); Urine Specific Gravity 1.015 (1.005-1.030); Urine pH 6.5 (5.0-7.0)
[2018-12-15 00:09] LABS: Protime INR 0.98
[2018-12-15 00:21] LABS: ALT/SGPT 16 U/L (12-78); AST/SGOT 13 U/L (15-37); Albumin 3.7 g/dL (3.4-5.0); Alkaline Phosphatase 52 U/L (45-117); BUN Blood Urea Nitrogen 44 mg/dL (7-18); Bicarbonate 32 mmol/L (21-32); Bilirubin Direct 0.1 mg/dL (0-0.2); Bilirubin Total 0.6 mg/dL (0.2-1.0); Glucose Level 104 mg/dL (74-106); Lipase 116 U/L (73-393); Magnesium 2.3 mg/dL (1.8-2.4); NT PRO-BNP 277 pg/mL (<450); Potassium 3.8 mmol/L (3.5-5.1); Protein, Total 7.4 g/dL (6.4-8.2); Sodium Level 139 mmol/L (136-145); Troponin (Emerg Dept Use Only) < 0.02 ng/mL (0.0-0.045)
[2018-12-15 00:43] LABS: Absolute Lymphocytes (CBC) 1.8 K/uL (0.7-4.9); Basophils % 0.5 % (0-1.3); Hematocrit 29.1 % (36.0-45.0); Lymphocytes % 30.5 % (15.3-44.8); MPV 9.1 fL (7.6-11.3); RBC Red Blood Cell Count 3.14 M/uL (3.86-4.86)
[2018-12-15] MEDS ORDERED: NA CHLORIDE 0.9% 250 ML ONE ×2 (01:24→02:30)
[2018-12-15] MEDS ORDERED: FAMOTIDINE 20 MG/2 ML VIAL IV ONE (01:24)
[2018-12-15] MEDS ORDERED: CEFEPIME 2 GM VIAL ONE (01:24)
--- NOTE | 2018-12-15 01:36 | ER ---
Nurse's Notes [facility] Name: Joyce Ramírez Age: 83 yrs Sex: Female : 1935 Arrival Date: 12/14/2018 Time: 22:25 Bed 30 Private MD: Diagnosis: Weakness;Cutaneous abscess of limb, unspecified;Edema, unspecified-venous stasis, bilateral Presentation: 12/14 22:20 Presenting complaint: EMS states: that they were toned because the patient "didn't feel fc right" Upon arrival noted the pt to have swollen legs with redness. Transition of care: patient was not received from another setting of care. Onset of symptoms was December 14, 2018 at 15:00. Risk Assessment: Do you want to hurt yourself or someone else? Patient reports no desire to harm self or others. Initial Sepsis Screen: Does the patient meet any 2 criteria? No. Patient's initial sepsis screen is negative. Does the patient have a suspected source of infection? No. Patient's initial sepsis screen is negative. Care prior to arrival: None. 22:20 Method Of Arrival: EMS: [facility] fc 22:20 Acuity: BRITTANI 3 fc Historical: - Allergies: 22:41 Codeine; fc 22:41 PENICILLINS; fc 22:41 Aspirin; fc 22:41 Sulfa (Sulfonamide Antibiotics); fc 22:41 Beta-Blockers (Beta-Adrenergic Blocking Agts); fc 22:41 MONTSERRAT INHIBITORS; fc 22:41 Pfcuwus-Hpp-Ois Reductase Inhibitors; fc 22:41 tolterodine; fc 22:41 Levofloxacin; fc 22:41 Doxycycline; fc 22:41 Demerol; fc 22:41 CALCIUM CHANNEL BLOCKING AGENTS-PHENYLALKYLAMINES; fc 22:41 Metolazone; fc - Home Meds: 22:41 levothyroxine 112 mcg tab 1 tab once daily [Active]; hydralazine 25 mg Oral tab 1 tab fc daily [Active]; pramipexole 1.5 mg Oral TbER 1 tab once daily [Active]; furosemide 80 mg Oral tab 1 tab once daily [Active]; tramadol 50 mg Oral tab 1 tab as needed [Active]; ropinirole 0.5 mg Oral tab 1 tab daily [Active]; Calcium Lactate Oral daily [Active]; magnesium oxide 500 mg Oral cap daily [Active]; Fish Oil oral oral daily [Active]; Vitamin D3 2,000 unit oral tab daily [Active]; Iron CR 65 mg Oral daily [Active]; - PMHx: 22:41 RLS; Hypertension; Cellulitis; Anemia; GERD; CHF; Hypothyroidism; Hyperlipidemia; fc - PSHx: 22:41 Hysterectomy; ovarian mass; Knee surgery; fc - Immunization history:: Last tetanus immunization: unknown, Flu vaccine is not up to date. - Social history:: Smoking status: Patient/guardian denies using tobacco, Patient/guardian denies using alcohol, street drugs. - Ebola Screening: : Patient negative for fever greater than or equal to 101.5 degrees Fahrenheit, and additional compatible Ebola Virus Disease symptoms Patient denies exposure to infectious person Patient denies travel to an Ebola-affected area in the 21 days before illness onset. - Family history:: not pertinent. Screenin:20 Abuse screen: Denies threats or abuse. Nutritional screening: No deficits noted. fc Tuberculosis screening: No symptoms or risk factors identified. Fall Risk Fall in past 12 months (25 points). Secondary diagnosis (15 points) impaired mobility, No IV (0 pts). Ambulatory Aid- Crutches/Cane/Walker (15 pts). Gait- Impaired (20 pts.). Mental Status- Overestimates/Forgets Limitations (15 pts.). Total Hollingsworth Fall Scale indicates High Risk Score (45 or more points). Fall prevention measures have been instituted. Side Rails Up X 2 Placed Close to Nursing Station Frequent Obs/Assessments Occuring Family Present and informed to notify staff if the need to leave the bedside As available patient and family educated on Fall Prevention Program and Strategies. Assessment: 23:30 General: Appears uncomfortable, Behavior is calm, cooperative. Pain: Complains of pain tr5 in pelvis. Pain: Pain does not radiate. Pain currently is 6 out of 10 on a pain scale. Quality of pain is described as aching, crampy, Pain began gradually. Neuro: Level of Consciousness is awake, alert, obeys commands, Oriented to person, place, time, Log Rafter are equal bilaterally Moves all extremities. Cardiovascular: Heart tones present Capillary refill < 3 seconds Pulses are all present. Edema pitting to left ankle, left foot, left toes, right ankle, right foot and right toes. Respiratory: Airway is patent Respiratory effort is even, unlabored, Respiratory pattern is regular, symmetrical. GI: No signs and/or symptoms were reported involving the gastrointestinal system. : No signs and/or symptoms were reported regarding the genitourinary system. EENT: No signs and/or symptoms were reported regarding the EENT system. Derm: No signs and/or symptoms reported regarding the dermatologic system. Skin is intact, Skin is dry, Skin temperature is warm. Musculoskeletal: Capillary refill < 3 seconds, Range of motion: intact in all extremities. 12/15 00:30 Reassessment: Patient appears in no apparent distress at this time. Patient and/or tr5 family updated on plan of care and expected duration. Pain level reassessed. Patient is alert, oriented x 3, equal unlabored respirations, skin warm/dry/pink. 01:30 Reassessment: Patient appears in no apparent distress at this time. Patient and/or tr5 family updated on plan of care and expected duration. Pain level reassessed. Patient is alert, oriented x 3, equal unlabored respirations, skin warm/dry/pink. Vital Signs: 12/14 22:20 BP 167 / 64; Pulse 72; Resp 18; Temp 97.5(O); Pulse Ox 100% on R/A; Weight 83.01 kg fc (R); Height 5 ft. 4 in. (162.56 cm) (R); Pain 6/10; 23:00 BP 150 / 64; Pulse 69; Resp 19; Pulse Ox 99% on R/A; tr5 12/15 00:00 BP 136 / 53; Pulse 65; Resp 18; Pulse Ox 96% on R/A; tr5 01:30 BP 134 / 56; Pulse 64; Resp 17; Pulse Ox 97% on R/A; tr5 12/14 22:20 Body Mass Index 31.41 (83.01 kg, 162.56 cm) ED Course: 12/14 22:20 Arm band placed on Patient placed in an exam room, on a stretcher. 22:20 Patient has correct armband on for positive identification. Bed in low position. Call light in reach. Side rails up X2. Pulse ox on. NIBP on. 22:20 No provider procedures requiring assistance completed. fc 22:25 Patient arrived in ED. 22:31 Triage completed. 22:58 Luis Doll MD is Attending Physician. james 23:26 Ryan Bassett, RN is Primary Nurse. tr5 23:30 EKG done. tr5 23:39 XRAY Chest (1 view) In Process Unspecified. EDMS 23:40 Inserted saline lock: 22 gauge in right antecubital area, using aseptic technique. tr5 23:45 Initial lab(s) drawn, by ne, sent to lab. tr5 12/15 01:09 Juancarlos Clayton MD is Hospitalizing Provider. james 01:20 First set of blood cultures drawn. tr5 01:46 Second set of blood cultures drawn. tr5 02:44 Patient admitted, IV remains in place. tr5 Administered Medications: 01:48 Drug: Cefepime 2 grams Route: IVPB; Rate: 200 ml/hr; Infused Over: 30 mins; Site: right tr5 antecubital; 02:13 Follow up: IV Status: Completed infusion tr5 01:48 Drug: Pepcid 20 mg Route: IVP; Site: right antecubital; tr5 02:16 Follow up: Response: No adverse reaction tr5 02:13 Drug: vancoMYCIN 1 grams Route: IVPB; Infused Over: 2 hrs; Site: right antecubital; tr5 02:14 Follow up: IV Status: Infusion continued upon transfer tr5 Outcome: 01:12 Decision to Hospitalize by Provider. james 02:43 Admitted to Med/surg accompanied by tech, via stretcher, with chart. tr5 02:43 Condition: stable 02:43 Instructed on the need for admit. 02:52 Patient left the ED. tr5 Signatures: Dispatcher [employer] EDLuis Echols MD MD cha Chretien, Felicia, RN RN fc Ryan Bassett, ISABELLA RN tr5
--- NOTE | 2018-12-15 01:37 | EDPHYS ---
Physician Documentation [facility] Name: Joyce Ramírez Age: 83 yrs Sex: Female : 1935 Arrival Date: 12/14/2018 Time: 22:25 Bed 30 Private MD: ED Physician Luis Doll HPI: 12/15 00:13 This 83 yrs old Female presents to ER via EMS with complaints of "Don't feel james right". 00:13 The patient presents with decreased range of motion, pain, that is acute. The james complaints affect the right leg and left leg. Context: The problem was sustained at an unknown site. Onset: The symptoms/episode began/occurred 1 day(s) ago. Modifying factors: The symptoms are alleviated by nothing. elevating leg, remaining still. Associated signs and symptoms: Pertinent positives: weakness. feels weak. Severity of symptoms: At their worst the symptoms were mild moderate in the emergency department the symptoms are unchanged. Historical: - Allergies: 12/14 22:41 Codeine; fc 22:41 PENICILLINS; fc 22:41 Aspirin; fc 22:41 Sulfa (Sulfonamide Antibiotics); fc 22:41 Beta-Blockers (Beta-Adrenergic Blocking Agts); fc 22:41 MONTSERRAT INHIBITORS; fc 22:41 Zgprzhd-Mxf-Zjy Reductase Inhibitors; fc 22:41 tolterodine; fc 22:41 Levofloxacin; fc 22:41 Doxycycline; fc 22:41 Demerol; fc 22:41 CALCIUM CHANNEL BLOCKING AGENTS-PHENYLALKYLAMINES; fc 22:41 Metolazone; fc - Home Meds: 22:41 levothyroxine 112 mcg tab 1 tab once daily [Active]; hydralazine 25 mg Oral tab 1 tab fc daily [Active]; pramipexole 1.5 mg Oral TbER 1 tab once daily [Active]; furosemide 80 mg Oral tab 1 tab once daily [Active]; tramadol 50 mg Oral tab 1 tab as needed [Active]; ropinirole 0.5 mg Oral tab 1 tab daily [Active]; Calcium Lactate Oral daily [Active]; magnesium oxide 500 mg Oral cap daily [Active]; Fish Oil oral oral daily [Active]; Vitamin D3 2,000 unit oral tab daily [Active]; Iron CR 65 mg Oral daily [Active]; - PMHx: 22:41 RLS; Hypertension; Cellulitis; Anemia; GERD; CHF; Hypothyroidism; Hyperlipidemia; fc - PSHx: 22:41 Hysterectomy; ovarian mass; Knee surgery; fc - Immunization history:: Last tetanus immunization: unknown, Flu vaccine is not up to date. - Social history:: Smoking status: Patient/guardian denies using tobacco, Patient/guardian denies using alcohol, street drugs. - Ebola Screening: : Patient negative for fever greater than or equal to 101.5 degrees Fahrenheit, and additional compatible Ebola Virus Disease symptoms Patient denies exposure to infectious person Patient denies travel to an Ebola-affected area in the 21 days before illness onset. - Family history:: not pertinent. ROS: 12/15 00:13 Constitutional: Negative for fever, chills, and weight loss, Eyes: Negative for injury, james pain, redness, and discharge, ENT: Negative for injury, pain, and discharge, Neck: Negative for injury, pain, and swelling, Cardiovascular: Negative for chest pain, palpitations, and edema, Respiratory: Negative for shortness of breath, cough, wheezing, and pleuritic chest pain, Abdomen/GI: Negative for abdominal pain, nausea, vomiting, diarrhea, and constipation, Back: Negative for injury and pain, : Negative for injury, bleeding, discharge, and swelling, Neuro: Negative for headache, weakness, numbness, tingling, and seizure, Psych: Negative for depression, anxiety, suicide ideation, homicidal ideation, and hallucinations, Allergy/Immunology: Negative for hives, rash, and allergies, Endocrine: Negative for neck swelling, polydipsia, polyuria, polyphagia, and marked weight changes, Hematologic/Lymphatic: Negative for swollen nodes, abnormal bleeding, and unusual bruising. MS/extremity: Positive for decreased range of motion, erythema, pain, swelling, tenderness. Exam: 00:13 Constitutional: This is a well developed, well nourished patient who is awake, alert, james and in no acute distress. Head/Face: Normocephalic, atraumatic. Eyes: Pupils equal round and reactive to light, extra-ocular motions intact. Lids and lashes normal. Conjunctiva and sclera are non-icteric and not injected. Cornea within normal limits. Periorbital areas with no swelling, redness, or edema. ENT: Nares patent. No nasal discharge, no septal abnormalities noted. Tympanic membranes are normal and external auditory canals are clear. Oropharynx with no redness, swelling, or masses, exudates, or evidence of obstruction, uvula midline. Mucous membranes moist. Neck: Trachea midline, no thyromegaly or masses palpated, and no cervical lymphadenopathy. Supple, full range of motion without nuchal rigidity, or vertebral point tenderness. No Meningismus. Chest/axilla: Normal chest wall appearance and motion. Nontender with no deformity. No lesions are appreciated. Cardiovascular: Regular rate and rhythm with a normal S1 and S2. No gallops, murmurs, or rubs. Normal PMI, no JVD. No pulse deficits. Respiratory: Lungs have equal breath sounds bilaterally, clear to auscultation and percussion. No rales, rhonchi or wheezes noted. No increased work of breathing, no retractions or nasal flaring. Abdomen/GI: Soft, non-tender, with normal bowel sounds. No distension or tympany. No guarding or rebound. No evidence of tenderness throughout. Back: No spinal tenderness. No costovertebral tenderness. Full range of motion. MS/ Extremity: Pulses equal, no cyanosis. Neurovascular intact. Full, normal range of motion. Neuro: Awake and alert, GCS 15, oriented to person, place, time, and situation. Cranial nerves II-XII grossly intact. Motor strength 5/5 in all extremities. Sensory grossly intact. Cerebellar exam normal. Normal gait. Psych: Awake, alert, with orientation to person, place and time. Behavior, mood, and affect are within normal limits. 00:13 Musculoskeletal/extremity: Circulation is intact in all extremities. Compartment Syndrome exam of affected extremity: is normal. no numbness, no tingling, no sensation deficit, no palor, no weak pulses, DVT Exam: negative Homans' sign noted on exam, no appreciated bluish discoloration, pain, swelling, tenderness, erythema, increased warmth, of the right leg, of the left leg, of the right leg and left leg. 00:13 Skin: Appearance: Color: pale, Temperature: normal temperature, Moisture: normal moisture, petechiae, not noted, ecchymosis, not noted, diaphoresis is not appreciated, abscess, not appreciated, cellulitis, that is mild, that is moderate, injury, is not appreciated, no rash present. Vital Signs: 12/14 22:20 BP 167 / 64; Pulse 72; Resp 18; Temp 97.5(O); Pulse Ox 100% on R/A; Weight 83.01 kg fc (R); Height 5 ft. 4 in. (162.56 cm) (R); Pain 6/10; 23:00 BP 150 / 64; Pulse 69; Resp 19; Pulse Ox 99% on R/A; tr5 12/15 00:00 BP 136 / 53; Pulse 65; Resp 18; Pulse Ox 96% on R/A; tr5 01:30 BP 134 / 56; Pulse 64; Resp 17; Pulse Ox 97% on R/A; tr5 12/14 22:20 Body Mass Index 31.41 (83.01 kg, 162.56 cm) fc MDM: 12/14 22:58 Patient medically screened. [facility] 12/15 00:13 Data reviewed: vital signs, nurses notes, lab test result(s), EKG, radiologic studies, james doppler, plain films. 12/14 22:59 Order name: Basic Metabolic Panel; Complete Time: 01:07 [facility] 12/14 22:59 Order name: CBC with Diff; Complete Time: 00:57 [facility] 12/14 22:59 Order name: LFT's; Complete Time: 01:07 [facility] 12/14 22:59 Order name: Magnesium; Complete Time: 01:07 [facility] 12/14 22:59 Order name: NT PRO-BNP; Complete Time: 01:07 [facility] 12/14 22:59 Order name: PT-INR; Complete Time: 00:11 [facility] 12/14 22:59 Order name: Troponin (emerg Dept Use Only); Complete Time: 01:07 [facility] 12/14 22:59 Order name: Lipase; Complete Time: 01:07 [facility] 12/14 22:59 Order name: Urine Culture [facility] 12/14 22:59 Order name: TSH; Complete Time: 01:07 [facility] 12/14 23:48 Order name: Urine Dipstick--Ancillary (enter results); Complete Time: 00:11 [facility] 12/15 00:11 Order name: Blood Culture Adult (2) [facility] 12/15 00:11 Order name: Procalcitonin [facility] 12/15 01:01 Order name: T4 Free; Complete Time: 01:07 [facility] 12/14 22:59 Order name: XRAY Chest (1 view) [facility] 12/14 22:59 Order name: EKG; Complete Time: 23:03 [facility] 12/14 22:59 Order name: Cardiac monitoring; Complete Time: 02:19 [facility] 12/14 22:59 Order name: EKG - Nurse/Tech; Complete Time: 02:19 [facility] 12/14 22:59 Order name: IV Saline Lock; Complete Time: 02:19 [facility] 12/14 22:59 Order name: Labs collected and sent; Complete Time: 02:18 [facility] 12/14 22:59 Order name: O2 Per Protocol; Complete Time: 02:17 [facility] 12/14 22:59 Order name: O2 Sat Monitoring; Complete Time: 23:27 [facility] 12/14 22:59 Order name: Urine Dipstick-Ancillary (obtain specimen); Complete Time: 23:49 [facility] 12/15 01:03 Order name: Procalcitonin EDMS Administered Medications: 01:48 Drug: Cefepime 2 grams Route: IVPB; Rate: 200 ml/hr; Infused Over: 30 mins; Site: right tr5 antecubital; 02:13 Follow up: IV Status: Completed infusion tr5 01:48 Drug: Pepcid 20 mg Route: IVP; Site: right antecubital; tr5 02:16 Follow up: Response: No adverse reaction tr5 02:13 Drug: vancoMYCIN 1 grams Route: IVPB; Infused Over: 2 hrs; Site: right antecubital; tr5 02:14 Follow up: IV Status: Infusion continued upon transfer tr5 Disposition: 12/15/18 01:12 Hospitalization ordered by Juancarlos Clayton for Inpatient Admission. Preliminary diagnosis are Weakness, Cutaneous abscess of limb, unspecified, Edema, unspecified - venous stasis, bilateral. - Bed requested for Telemetry/MedSurg (Inpatient). - Status is Inpatient Admission. tr5 - Condition is Fair. - Problem is new. - Symptoms have improved. UTI on Admission? No Signatures: Dispatcher [employer] EDMS Luis Doll MD MD cha Chretien, Felicia, RN Keyana Shields ar5 Ryan Bassett RN RN tr5 Corrections: (The following items were deleted from the chart) 01:48 01:12 Hospitalization Ordered by Juancarlos Clayton MD for Inpatient Admission. Preliminary ar5 diagnosis is Weakness; Cutaneous abscess of limb, unspecified; Edema, unspecified - venous stasis, bilateral. Bed requested for Telemetry/MedSurg (Inpatient). Status is Inpatient Admission. Condition is Fair. Problem is new. Symptoms have improved. UTI on Admission? No. james 02:52 01:48 12/15/2018 01:12 Hospitalization Ordered by Juancarlos Clayton MD for Inpatient tr5 Admission. Preliminary diagnosis is Weakness; Cutaneous abscess of limb, unspecified; Edema, unspecified - venous stasis, bilateral. Bed requested for Telemetry/MedSurg (Inpatient). Status is Inpatient Admission. Condition is Fair. Problem is new. Symptoms have improved. UTI on Admission? No. ar5
[2018-12-15] MEDS ORDERED: ACETAMINOPHEN 500 MG TAB PO PRN (01:55)
[2018-12-15] MEDS ORDERED: MORPHINE 2 MG/ML SYR IV PRN (01:55)
[2018-12-15] MEDS ORDERED: ONDANSETRON 4 MG/2 ML VIAL IV PRN (01:55)
[2018-12-15] MEDS ORDERED: HYDROCORTISONE SUC 100 MG INJ IV ONE (02:00)
[2018-12-15] MEDS ORDERED: VANCOMYCIN 1 GM/VIAL ONE (02:12)
[2018-12-15] MEDS ORDERED: NA CHLORIDE 0.9% 100 ML IV ONE (02:13)
[2018-12-15] MEDS ORDERED: NA CHLORIDE 0.9% 1,000 ML ONE (02:31)
[2018-12-15 03:39] VITALS: O2SAT 97
[2018-12-15 03:56] VITALS: BMI 31.8
[2018-12-15] MEDS ORDERED: PIPERACIL/TAZO 3.375 GM VIAL IV ONE (04:57)
[2018-12-15] MEDS ORDERED: NA CHLORIDE 0.9% 100 ML ONE (04:59)
[2018-12-15] MEDS ORDERED: PIPER/TAZO/NS 3.375gm 3.375 GM/100 ML BAG IVPB SCH ×2 (06:00→11:00)
--- NOTE | 2018-12-15 07:54 | RAD REPORT ---
EXAM DESCRIPTION: Ramya Single View12/14/2018 11:36 pm CLINICAL HISTORY: Chest pain COMPARISON: June 2018 FINDINGS: The lungs appear clear of acute infiltrate. The heart is mildly enlarged Questionable humeral head dislocations. If clinically indicated dedicated plain films of shoulders co uld be obtained for further evaluation
--- NOTE | 2018-12-15 08:37 | EKG ---
Test Date: 2018-12-14 Test Time: 23:42:23 Water Quality Specialist: TR MEASUREMENT RESULTS: Intervals: Rate: 61 WV: 158 QRSD: 96 QT: 448 QTc: 450 Stacy: P: 40 WV: 158 QRS: 49 T: 18 INTERPRETIVE STATEMENTS: Normal sinus rhythm Possible Inferior infarct, age undetermined Abnormal ECG Compared to ECG 07/18/2018 21:23:04 Myocardial infarct finding now present ST (T wave) deviation no longer present Electronically Signed On 12-15-18 08:36:28 CDT by Haroon Rich
[2018-12-15] MEDS ORDERED: FUROSEMIDE 40 MG/4 ML VIAL IV SCH (09:00)
--- NOTE | 2018-12-15 09:18 | P.SSS ---
Patient History Date of Service: 12/15/18 Primary Care Provider: Hernan Reason for admission: weakness History of Present Illness: Patient is here with complaints of "not feeling well". She has been getting weaker recently. Has dementia, chronic lymphadema and osteoarthritis. She called an ambulance was admitted for cellulitis. The patient has some mild reddness of her legs. However she does have this occasionally. Her lymphadema is chronic. Allergies aspirin Allergy (Intermediate, Verified 12/15/18 03:39) Nausea/Vomiting codeine Allergy (Intermediate, Verified 12/15/18 03:39) Nervousness, can't sleep Penicillins Allergy (Intermediate, Verified 12/15/18 03:39) diarrhea Shfjkyh-Lhu-Fhj Reductase Inhibitor Allergy (Intermediate, Verified 12/15/18 03: 39) restless leg syndrome Sulfa (Sulfonamide Antibiotics) Allergy (Intermediate, Verified 12/15/18 03:39) Dizziness, hallucinations MONTSERRAT Inhibitors Allergy (Verified 12/15/18 03:39) Anaphylaxis levofloxacin Allergy (Verified 12/15/18 03:39) Shortness of breath tolterodine Allergy (Verified 12/15/18 03:39) ankle swelling and frequent urinating Beta-Blockers (Beta-Adrenergic Bloc Adverse Reaction (Verified 12/15/18 03:39) unknown Calcium Channel Blocking Agents-Dih Adverse Reaction (Verified 12/15/18 03:39) nervousness doxycycline Adverse Reaction (Verified 12/15/18 03:39) severe headache metolazone Adverse Reaction (Verified 12/15/18 03:39) severe back pain Home Medications: Ferrous Sulfate [Iron] 65 mg PO DAILY 08/06/16 Hydralazine [Apresoline*] 25 mg PO DAILY 08/06/16 Magnesium Oxide [Magnesium] 1 tab PO DAILY 08/06/16 Pramipexole Di-HCl [Pramipexole ER] 1.5 mg PO BEDTIME 08/06/16 Tramadol HCl [Ultram] 50 mg PO TIDP PRN 08/06/16 Levothyroxine [Synthroid] 112 mcg PO [id number] 12/11/17 Ropinirole HCl [Requip] 0.5 mg PO BEDTIME 12/11/17 Calcium Lactate 765 mg PO DAILY 07/19/18 Lysine HCl [l-Lysine] 500 mg PO DAILY 07/19/18 Furosemide 80 mg PO DAILY 30 Days #30 tablet 07/20/18 Cholecalciferol (Vitamin D3) [Vitamin D3] 2,000 unit PO DAILY 12/15/18 Mangham-3S/Dha/Epa/Fish Oil [Fish Oil 1,200 mg Softgel] 1,200 mg PO DAILY - Past Medical/Surgical History Has patient received pneumonia vaccine in the past: Yes Diabetic: No -: Hypertension -: Hypothyroidism -: Edema to the lower extremities -: Venous insufficiency -: Restless leg syndrome -: GERD -: Urinary incontinence -: CHF, likely diastolic dysfunction -: Hysterectomy -: Bilateral oophorectomy -: Left breast cyst removed -: Total right knee replacement -: Cataract surgery Psychosocial/ Personal History: Patient is , she has 3 children. She does not work. She lives by herself but near family. - Family History Sister -: Lung disease Notes: Copd,Asthma Father -: Heart disease Mother -: Hypertension - Social History Smoking Status: Unknown if ever smoked Alcohol use: No CD- Drugs: No Caffeine use: No Place of Residence: Home Review of Systems 10-point ROS is otherwise unremarkable General: Weakness, Malaise Physical Examination - Vital Signs Temperature: 97.5 F Blood Pressure: 134/56 Pulse: 64 Respirations: 17 - Physical Exam General: Alert, In no apparent distress HEENT: Atraumatic, PERRLA, Mucous membr. moist/pink, EOMI, Sclerae nonicteric Neck: Supple, 2+ carotid pulse no bruit, No LAD, Without JVD or thyroid abnormality Respiratory: Clear to auscultation bilaterally, Normal air movement Cardiovascular: Regular rate/rhythm, Normal S1 S2 Gastrointestinal: Normal bowel sounds, No tenderness Musculoskeletal: No tenderness Integumentary: No rashes, Other (chronic skin changes of LE lymphadema) Neurological: Normal gait, Normal speech, Normal strength at 5/5 x4 extr, Normal tone, Normal affect Lymphatics: No axilla or inguinal lymphadenopathy - Studies Laboratory Data (last 24 hrs) 12/14/18 23:20: PT 11.6, INR 0.98 12/14/18 23:20: WBC 6.0, Hgb 9.8 L, Hct 29.1 L, Plt Count 206 12/14/18 23:20: Sodium 139, Potassium 3.8, BUN 44 H, Creatinine 1.20, Glucose 104, Magnesium 2.3, Total Bilirubin 0.6, AST 13 L, ALT 16, Alkaline Phosphatase 52, Lipase 116 - Diagnosis (Problem(s)) (1) Dementia Current Visit: No Status: Acute Plan: Will continue with home PT. Have the patient follow up with me in the office. 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 Mild inflammation. Which waxes and wanes - Disposition Disposition: ROUTINE DISCHARGE Condition: GOOD Diet: Regular Activity: Ad nancy Physician Review: Patient Assessed, Agree with Above Assessment and Plan Critical Care: No Time Spent Managing Pts Care (In Minutes): 30
[2018-12-15 14:09] VITALS: BP 125/59; TEMP 97.7
== END 2018-12-15 12:35 | disposition home health service (06) ==
LOC: ER 22:18 → INTOOBSV 12-15 02:26 → 2ND 12-15 02:26
PROVIDERS: ADMIT Hospitalist; ATTEND Hospitalist
DX: L43.8 Other lichen planus (principal); I10 Essential (primary) hypertension; E03.9 Hypothyroidism, unspecified; G25.81 Restless legs syndrome; K21.9 Gastro-esophageal reflux disease without esophagitis; I50.30 Unspecified diastolic (congestive) heart failure; G30.9 Alzheimer's disease, unspecified; F02.80 Dementia in other diseases classified elsewhere, unspecified severity, without behavioral disturbance, psychotic disturbance, mood disturbance, and anxiety
CPT/HCPCS: 96365; 93005; 87040 ×2; 87088; 85025; 87086; 80048; 36415 ×2; 83735; 85610; 80076; 84443; 81003; 84484; 84439; 83690; 84145; 83880; 71045; 96375; 99285; J1940; J2543 ×2; J0692; J7030; J1720; G0378 ×2

== ENCOUNTER 2019-01-29 12:35 | Inpatient (IN) | payer OTHER ==
--- OUTSIDE RECORDS SUMMARY | 2019-01-29 12:38 | XMS REPORT ---
:1935 [facility] [place] [address] Care Team Providers Name Role Phone Unavailable Unavailable Unavailable Problems This patient has no known problems. Allergies, Adverse Reactions, Alerts This patient has no known allergies or adverse reactions. Medications This patient has no known medications.
[2019-01-29 14:07] LABS: Basophils % 0.5 % (0-1.3); Hematocrit 25.8 % (36.0-45.0); Lymphocytes % 20.8 % (15.3-44.8); MPV 8.7 fL (7.6-11.3); RBC Red Blood Cell Count 2.59 M/uL (3.86-4.86)
[2019-01-29] MEDS ORDERED: NA CHLORIDE 0.9% 2,000 ML ONE (14:20)
[2019-01-29] MEDS ORDERED: CLINDAMYCIN 600MG/D5W 600 MG/50 ML BAG IV ONE (14:20)
[2019-01-29 14:24] LABS: Protime INR 0.96
[2019-01-29 14:27] LABS: Albumin 3.4 g/dL (3.4-5.0); Bilirubin Direct 0.1 mg/dL (0-0.2); Bilirubin Total 0.8 mg/dL (0.2-1.0); CKMB Creatine Kinase MB 3.3 ng/mL (0.3-3.6); Protein, Total 7.4 g/dL (6.4-8.2)
--- NOTE | 2019-01-29 14:30 | ER ---
Nurse's Notes [facility] Name: Joyce Ramírez Age: 83 yrs Sex: Female : 1935 Arrival Date: 01/29/2019 Time: 12:36 Bed 17 Private MD: Jean Galindo Diagnosis: Cellulitis of right lower limb;Cellulitis of left lower limb Presentation: 01/29 13:07 Presenting complaint: Patient states: diagnosed with cellulitis to both legs, started iw on Kefelx on Tuesday by Dr. Grayson, not getting better, still very red and swollen and weeping. Transition of care: patient was not received from another setting of care. Onset of symptoms was January 23, 2019. Risk Assessment: Do you want to hurt yourself or someone else? Patient reports no desire to harm self or others. Initial Sepsis Screen: Does the patient meet any 2 criteria? No. Patient's initial sepsis screen is negative. Does the patient have a suspected source of infection? No. Patient's initial sepsis screen is negative. Care prior to arrival: None. 13:07 Method Of Arrival: Wheelchair iw 13:07 Acuity: BRITTANI 3 iw Triage Assessment: 13:10 General: Appears in no apparent distress. uncomfortable, Behavior is calm, cooperative, bp appropriate for age. Pain: Complains of pain in right leg and left leg. EENT: No deficits noted. Neuro: No deficits noted. Cardiovascular: No deficits noted. Respiratory: No deficits noted. GI: No signs and/or symptoms were reported involving the gastrointestinal system. : No signs and/or symptoms were reported regarding the genitourinary system. Derm: Skin is red. Musculoskeletal: Swelling present in right leg and left leg. Historical: - Allergies: 12:39 MONTSERRAT INHIBITORS; aa5 12:39 Aspirin; aa5 12:39 Beta-Blockers (Beta-Adrenergic Blocking Agts); aa5 12:39 CALCIUM CHANNEL BLOCKING AGENTS-PHENYLALKYLAMINES; aa5 12:39 Codeine; aa5 12:39 Demerol; aa5 12:39 Doxycycline; aa5 12:39 Levofloxacin; aa5 12:39 Metolazone; aa5 12:39 PENICILLINS; aa5 12:39 Jojttxw-Amm-Tke Reductase Inhibitors; aa5 12:39 Sulfa (Sulfonamide Antibiotics); aa5 12:39 tolterodine; aa5 - Home Meds: 13:19 levothyroxine 112 mcg tab 1 tab once daily [Active]; Hydralazine Oral [Active]; iw pramipexole 1.5 mg oral Tb24 1 tab once daily [Active]; furosemide 80 mg Oral tab 1 tab once daily [Active]; tramadol 50 mg Oral tab [Active]; ropinirole 0.5 mg oral tab 1 tab daily [Active]; L-Lysine 500 mg Oral cap daily [Active]; Calcium Lactate Oral 765 mg daily [Active]; magnesium oxide 500 mg Oral cap daily [Active]; Fish Oil oral oral daily [Active]; Vitamin D Oral 2000 unit daily [Active]; Iron CR Oral daily [Active]; - PMHx: 12:39 Anemia; Cellulitis; CHF; GERD; Hyperlipidemia; Hypertension; Hypothyroidism; RLS; aa5 - PSHx: 12:39 Hysterectomy; ovarian mass; Knee surgery; aa5 - Immunization history:: Adult Immunizations up to date. - Social history:: Smoking status: Patient/guardian denies using tobacco, Patient/guardian denies using alcohol, street drugs, The patient lives with family. - Ebola Screening: : Patient negative for fever greater than or equal to 101.5 degrees Fahrenheit, and additional compatible Ebola Virus Disease symptoms Patient denies exposure to infectious person Patient denies travel to an Ebola-affected area in the 21 days before illness onset No symptoms or risks identified at this time. - Family history:: not pertinent. - Hospitalizations: : No recent hospitalization is reported. Screenin:32 Abuse screen: Denies threats or abuse. Denies injuries from another. Nutritional bp screening: No deficits noted. Tuberculosis screening: No symptoms or risk factors identified. Fall Risk None identified. Assessment: 13:10 General: SEE TRIAGE NOTE. bp 15:27 Reassessment: ADMIT IN PROCESS. bp Vital Signs: 13:08 BP 151 / 59; Pulse 68; Resp 16 S; Temp 98.1; Pulse Ox 99% on R/A; Weight 83.46 kg; iw Height 5 ft. 4 in. (162.56 cm); Pain 8/10; 13:59 BP 151 / 59; Pulse 66; Resp 17; Pulse Ox 98% ; bp 15:44 BP 132 / 60; Pulse 67; Resp 22; Pulse Ox 96% ; bp 17:02 BP 147 / 62; Pulse 66; Resp 16; Temp 98; Pulse Ox 96% ; bp 13:08 Body Mass Index 31.58 (83.46 kg, 162.56 cm) ED Course: 12:36 Patient arrived in ED. rg4 12:36 Jean Galnido DO is Private Physician. rg4 12:38 Arm band placed on. aa5 12:42 Juancarlos Edwards MD is Attending Physician. ma2 13:08 Triage completed. iw 13:27 Pedrito Mora, RN is Primary Nurse. bp 13:32 Patient has correct armband on for positive identification. Bed in low position. Call bp light in reach. Side rails up X2. 13:45 Inserted saline lock: 20 gauge in right forearm, using aseptic technique. Blood bp collected. 14:29 Christy Mckeon MD is Hospitalizing Provider. ma2 15:02 EKG done, by certified veterinary technician. reviewed by Juancarlos Edwards MD. 3 16:06 No provider procedures requiring assistance completed. Patient admitted, IV remains in bp place. Administered Medications: 14:00 Drug: NS 0.9% (30 ml/kg) 30 ml/kg Route: IV; Rate: bolus; Site: right forearm; bp 16:05 Follow up: IV Status: Completed infusion; IV Intake: 2000ml bp 14:00 Drug: Clindamycin 600 mg Route: IVPB; Infused Over: 30 mins; Site: right forearm; bp 16:05 Follow up: IV Status: Completed infusion; IV Intake: 50ml bp Intake: 16:05 IV: 50ml; Total: 50ml. bp 16:05 IV: 2000ml; Total: 2050ml. bp Outcome: 14:30 Decision to Hospitalize by Provider. ma2 16:06 Condition: stable bp 16:06 Instructed on the need for admit. 17:01 Admitted to Med/surg accompanied by tech, family with patient, via stretcher, room 214, bp with chart, Report called to MILA MASON 17:10 Patient left the ED. bp Signatures: Ashlee Webb RN RN Caity Alexis RN RN [id number] Carolyn Sanz rg4 Pedrito Mora RN RN Juancarlos Edwards MD MD me2 Lizbeth Garnica 3
--- NOTE | 2019-01-29 14:30 | EDPHYS ---
Physician Documentation [facility] Name: Joyce Ramírez Age: 83 yrs Sex: Female : 1935 Arrival Date: 01/29/2019 Time: 12:36 Bed 17 Private MD: Jean Galindo ED Physician Juancarlos Edwards HPI: 01/29 14:27 This 83 yrs old Female presents to ER via Wheelchair with complaints of Leg ma2 Swelling. 14:27 The patient presents with pain. Onset: The symptoms/episode began/occurred gradually, 1 ma2 day(s) ago. Associated signs and symptoms: Pertinent negatives fever, nausea, swelling, vomiting. Severity of symptoms: At their worst the symptoms were moderate, in the emergency department the symptoms are actually worse, mildly, is on keflex for the last 1 week. Historical: - Allergies: 12:39 MONTSERRAT INHIBITORS; aa5 12:39 Aspirin; aa5 12:39 Beta-Blockers (Beta-Adrenergic Blocking Agts); aa5 12:39 CALCIUM CHANNEL BLOCKING AGENTS-PHENYLALKYLAMINES; aa5 12:39 Codeine; aa5 12:39 Demerol; aa5 12:39 Doxycycline; aa5 12:39 Levofloxacin; aa5 12:39 Metolazone; aa5 12:39 PENICILLINS; aa5 12:39 Rukngll-Ygu-Awd Reductase Inhibitors; aa5 12:39 Sulfa (Sulfonamide Antibiotics); aa5 12:39 tolterodine; aa5 - Home Meds: 13:19 levothyroxine 112 mcg tab 1 tab once daily [Active]; Hydralazine Oral [Active]; iw pramipexole 1.5 mg oral Tb24 1 tab once daily [Active]; furosemide 80 mg Oral tab 1 tab once daily [Active]; tramadol 50 mg Oral tab [Active]; ropinirole 0.5 mg oral tab 1 tab daily [Active]; L-Lysine 500 mg Oral cap daily [Active]; Calcium Lactate Oral 765 mg daily [Active]; magnesium oxide 500 mg Oral cap daily [Active]; Fish Oil oral oral daily [Active]; Vitamin D Oral 2000 unit daily [Active]; Iron CR Oral daily [Active]; - PMHx: 12:39 Anemia; Cellulitis; CHF; GERD; Hyperlipidemia; Hypertension; Hypothyroidism; RLS; aa5 - PSHx: 12:39 Hysterectomy; ovarian mass; Knee surgery; aa5 - Immunization history:: Adult Immunizations up to date. - Social history:: Smoking status: Patient/guardian denies using tobacco, Patient/guardian denies using alcohol, street drugs, The patient lives with family. - Ebola Screening: : Patient negative for fever greater than or equal to 101.5 degrees Fahrenheit, and additional compatible Ebola Virus Disease symptoms Patient denies exposure to infectious person Patient denies travel to an Ebola-affected area in the 21 days before illness onset No symptoms or risks identified at this time. - Family history:: not pertinent. - Hospitalizations: : No recent hospitalization is reported. ROS: 14:27 Constitutional: Negative for fever, chills, and weight loss. ma2 14:27 All other systems are negative. Exam: 14:27 Constitutional: This is a well developed, well nourished patient who is awake, alert, ma2 and in no acute distress. Chest/axilla: Normal chest wall appearance and motion. Nontender with no deformity. No lesions are appreciated. Cardiovascular: Regular rate and rhythm with a normal S1 and S2. No gallops, murmurs, or rubs. Normal PMI, no JVD. No pulse deficits. Respiratory: Lungs have equal breath sounds bilaterally, clear to auscultation and percussion. No rales, rhonchi or wheezes noted. No increased work of breathing, no retractions or nasal flaring. Abdomen/GI: Soft, non-tender, with normal bowel sounds. No distension or tympany. No guarding or rebound. No evidence of tenderness throughout. Skin: Warm, dry with normal turgor. Normal color with no rashes, no lesions, and no evidence of cellulitis. MS/ Extremity: bilateral large anterior leg cellulitis of both legs in addition to lyphedema, otherwise Pulses equal, no cyanosis. Neurovascular intact. Full, normal range of motion. Neuro: Awake and alert, GCS 15, oriented to person, place, time, and situation. Cranial nerves II-XII grossly intact. Motor strength 5/5 in all extremities. Sensory grossly intact. Cerebellar exam normal. Normal gait. Vital Signs: 13:08 BP 151 / 59; Pulse 68; Resp 16 S; Temp 98.1; Pulse Ox 99% on R/A; Weight 83.46 kg; iw Height 5 ft. 4 in. (162.56 cm); Pain 8/10; 13:59 BP 151 / 59; Pulse 66; Resp 17; Pulse Ox 98% ; bp 15:44 BP 132 / 60; Pulse 67; Resp 22; Pulse Ox 96% ; bp 17:02 BP 147 / 62; Pulse 66; Resp 16; Temp 98; Pulse Ox 96% ; bp 13:08 Body Mass Index 31.58 (83.46 kg, 162.56 cm) iw MDM: 12:42 Patient medically screened. ma2 14:27 Differential diagnosis: abrasion, cellulitis, no nec fascieitis at this time. Data ma2 reviewed: vital signs, nurses notes. Counseling: I had a detailed discussion with the patient and/or guardian regarding: the historical points, exam findings, and any diagnostic results supporting the discharge/admit diagnosis, the presence of at least one elevated blood pressure reading (>120/80) during this emergency department visit, the need for further work-up and treatment in the hospital. Response to treatment: the patient's symptoms have mildly improved after treatment. ED course: discussed with dr. coughlin . 01/29 13:33 Order name: Basic Metabolic Panel [facility] 01/29 13:33 Order name: Blood Culture Adult (2) [facility] 01/29 13:33 Order name: CBC with Diff; Complete Time: 14:23 [facility] 01/29 13:33 Order name: Ckmb [facility] 01/29 13:33 Order name: CPK [facility] 01/29 13:33 Order name: Lactate; Complete Time: 14:23 [facility] 01/29 13:33 Order name: LFT's [facility] 01/29 13:33 Order name: Lipase [facility] 01/29 13:33 Order name: Procalcitonin [facility] 01/29 13:33 Order name: Protime (+inr) [facility] 01/29 13:33 Order name: Ptt, Activated [facility] 01/29 14:34 Order name: Wound Culture bp 01/29 13:33 Order name: Accucheck; Complete Time: 14:00 [facility] 01/29 13:33 Order name: Cardiac monitoring; Complete Time: 13:34 [facility] 01/29 13:33 Order name: EKG - Nurse/Tech; Complete Time: 14:01 [facility] 01/29 13:33 Order name: IV Saline Lock - Large Bore; Complete Time: 14:00 [facility] 01/29 13:33 Order name: Labs collected and sent; Complete Time: 14:00 [facility] 01/29 13:33 Order name: O2 Per Protocol; Complete Time: 13:36 [facility] 01/29 13:33 Order name: O2 Sat Monitoring; Complete Time: 13:36 [facility] Administered Medications: 14:00 Drug: NS 0.9% (30 ml/kg) 30 ml/kg Route: IV; Rate: bolus; Site: right forearm; bp 16:05 Follow up: IV Status: Completed infusion; IV Intake: 2000ml bp 14:00 Drug: Clindamycin 600 mg Route: IVPB; Infused Over: 30 mins; Site: right forearm; bp 16:05 Follow up: IV Status: Completed infusion; IV Intake: 50ml bp Disposition: 01/29/19 14:30 Hospitalization ordered by Christy Coughlin for Observation. Preliminary diagnosis are Cellulitis of right lower limb, Cellulitis of left lower limb. - Bed requested for Telemetry/MedSurg (observation). - Status is Observation. bp - Condition is Stable. - Problem is new. - Symptoms are unchanged. UTI on Admission? No Signatures: Dispatcher [employer] EDPriscilla Street RN RN dw Williams, Irene, RN RN Caity Alexis RN RN aa5 Peltier, Brian, RN RN bp Alzahri, Mohammad, MD MD ma2 Corrections: (The following items were deleted from the chart) 16:03 14:30 Hospitalization Ordered by Christy Coughlin MD for Observation. Preliminary diagnosis dw is Cellulitis of right lower limb; Cellulitis of left lower limb. Bed requested for Telemetry/MedSurg (observation). Status is Observation. Condition is Stable. Problem is new. Symptoms are unchanged. UTI on Admission? No. ma2 17:10 16:03 01/29/2019 14:30 Hospitalization Ordered by Christy Coughlin MD for Observation. bp Preliminary diagnosis is Cellulitis of right lower limb; Cellulitis of left lower limb. Bed requested for Telemetry/MedSurg (observation). Status is Observation. Condition is Stable. Problem is new. Symptoms are unchanged. UTI on Admission? No. dw
[2019-01-29] MEDS ORDERED: VANCOMYCIN/NS 1 gm 1 GM/250 ML BAG IVPB SCH (17:03)
[2019-01-29] MEDS ORDERED: ONDANSETRON 4 MG/2 ML VIAL IV PRN (17:03)
[2019-01-29] MEDS ORDERED: ENOXAPARIN 30 MG/0.3 ML SQ SCH (18:00)
[2019-01-29 18:26] VITALS: BMI 31.6
[2019-01-29] MEDS: NA CHLORIDE 0.9% 1,000 ML IV SCH (18:37)
[2019-01-29] MEDS ORDERED: TRAMADOL HCL 50 MG TAB PO PRN (19:00)
--- NOTE | 2019-01-29 19:23 | RAD REPORT ---
EXAM DESCRIPTION: US - Extrem Venous W Compress Handy - 01/29/2019 6:49 pm CLINICAL HISTORY: Bilateral leg pain and swelling COMPARISON: None. TECHNIQUE: Real-time sonographic evaluation of the bilateral lower extremity common femoral, superfi cial femoral, popliteal and posterior tibial veins was performed. FINDINGS: Normal compressibility, flow augmentation, phasic flow and spontaneous flow are identified in the left and right lower extremity common femoral, superficial femoral, popliteal and posterior t ibial veins. No intraluminal filling defects seen. IMPRESSION: No DVT in either lower extremity.
[2019-01-29 23:43] LABS: Urine Appearance CLEAR; Urine Bilirubin NEGATIVE (NEG); Urine Blood NEGATIVE (NEG); Urine Color YELLOW; Urine Glucose NEGATIVE (NEG); Urine Protein NEGATIVE (NEG); Urine Specific Gravity 1.015 (1.005-1.030); Urine Urobilinogen 0.2 mg/dL (0.2-1.0)
[2019-01-29 23:52] LABS: Urine Microscopic Reflex NO UMIC
[2019-01-30] MEDS: ACETAMINOPHEN 500 MG TAB PO PRN (01:27)
--- NOTE | 2019-01-30 04:31 | HP ---
Date of Admission: 01/29/2019 Primary Care Physician: Dr. Grayson. Chief Complaint: Bilateral lower extremity redness, swelling, and pain. Code Status: Do not resuscitate. Daughter at the bedside. Patient does not want any CPR or mechanical ventilation. History Of Present Illness: The patient is an 83-year-old female with past medical history of hypertension, restless legs syndrome, hypothyroidism, congestive heart failure, chronic lymphedema, who was in her usual state of health until 1 week prior to admission when the patient had onset of lower extremity redness, which was worse than usual and weeping of some wounds from the lower extremities. Patient also reported some pain, erythema, and worsening condition. Patient also reported some subjective fever along with chills. No significant trauma to the affected area. Patient went to her PCP, was given Keflex. However, after 1 week of oral antibiotics, her condition has worsened. No alleviating factors. Patient therefore came into the ER for worsening condition. Her symptoms are constant, moderate, progressively worsening. In the ER, her workup revealed normal white blood cell count 4.6. Her procalcitonin and lactate were negative. She did not appear to be septic. Patient was given a dose of clindamycin and then referred for admission. When seen in the ER, she was awake, alert, oriented x3, in some mild distress due to pain. Past Medical History: Hypertension, hypothyroidism, chronic lymphedema, venous insufficiency, restless legs syndrome, GERD, urinary incontinence, congestive heart failure, diastolic dysfunction. Surgical History: Hysterectomy, bilateral oophorectomy, left breast cyst removed, total right knee replacement, cataract surgery. Allergies: ASPIRIN, CODEINE, PENICILLIN, STATINS, SULFA, MONTSERRAT INHIBITORS, LEVAQUIN, TOLTERODINE, BETA-BLOCKERS, CALCIUM-CHANNEL BLOCKERS, DOXYCYCLINE, METOLAZONE. Medications: List reviewed. Social History: The patient denies any tobacco use, alcohol use, or illicit drug use. Lives at home by herself. Does use a walker for ambulation. Has good social support. Has 3 children. . Does not work. Family History: Sister has lung disease including COPD and asthma. Father had heart disease. Mother had hypertension. Review of Systems: Ten-point system reviewed, negative except as per HPI. Physical Examination: Vital Signs: Blood pressure 151/59, pulse 68, respirations 16, temperature 98.1 , O2 at 99% on room air. BMI is 31. General: Awake, alert, oriented x3. Elderly female, in some mild distress due to pain, ill-appearing, obese female. HEENT: Normocephalic, atraumatic PERRL. EOMI. Moist mucous membranes. Oropharynx is clear. Poor dentition. Conjunctivae are anicteric. Neck: Supple. No JVD. Trachea midline. CV: S1, S2. Regular rate and rhythm. Peripheral pulses present. Respiratory: Moving air well bilaterally. No wheezing or stridor. No use of accessory muscles. Gastrointestinal: Abdomen is soft, nontender, nondistended. Positive bowel sounds. No guarding or rigidity. Extremities: No clubbing or cyanosis. Patient has diffuse lower extremity edema 3+ up to the knees. No calf tenderness. Skin: Erythema of bilateral lower extremities with some weeping wounds, greater on the right lower extremity along with ulceration. Neuro: Cranial nerves 2 through 12 intact grossly. No focal neurological deficit. Speech is normal. Strength is symmetric in bilateral upper and lower extremities. Psych: Mood is okay. Affect is full. Insight and judgment are good. Laboratory Data: Sodium 139, potassium 4, chloride 102, CO2 of 33, BUN 41, creatinine 1.24, glucose 96, lactate 0.9, calcium 8.5, albumin 3.4. Procalcitonin less than 0.05. INR 0.96. WBC 4.6, H and H 9.4 and 25.8, platelets 204, neutrophils 66%. Assessment And Plan: 83-year-old female with: 1. Bilateral lower extremity cellulitis with failed outpatient treatment. Patient was on Keflex for 1 week without any significant improvement. We will continue with IV antibiotics. Obtain blood cultures and wound cultures. Patient has chronic venous insufficiency, likely source of bacterial invasion to the soft tissue. We will obtain Doppler sonogram of the lower extremities to rule out DVT due to significant swelling and pain. 2. Essential hypertension, stable. We will resume home medications as appropriate. 3. Hypothyroidism. We will continue levothyroxine. 4. Chronic venous insufficiency. We will have Wound Care evaluate the patient. 5. Restless legs syndrome. We will continue with pramipexole. 6. Gastroesophageal reflux disease. We will continue PPI without esophagitis. 7. Urinary incontinence. 8. Congestive heart failure, diastolic dysfunction, chronic compensated. 9. Obesity, BMI 31. Plan: 1. Admit patient to Med-Surg, place as inpatient, length of stay greater than 2 midnights. 2. Deep vein thrombosis prophylaxis with Lovenox. JOSHUA Voice ID: [id number] MTDD
[2019-01-30] MEDS: NA CHLORIDE 0.9% 1,000 ML IV SCH ×2 (05:52→20:24)
[2019-01-30 05:59] LABS: Absolute Lymphocytes (CBC) 0.8 K/uL (0.7-4.9); Basophils % 0.5 % (0-1.3); Hematocrit 25.3 % (36.0-45.0); Lymphocytes % 14.5 % (15.3-44.8); MPV 8.8 fL (7.6-11.3); RBC Red Blood Cell Count 2.57 M/uL (3.86-4.86)
[2019-01-30 06:11] LABS: Potassium 3.8 mmol/L (3.5-5.1)
--- NOTE | 2019-01-30 08:47 | EKG ---
Test Date: 2019-01-29 Test Time: 19:24:24 Recooperer: RT-O MEASUREMENT RESULTS: Intervals: Rate: 79 SC: 168 QRSD: 88 QT: 398 QTc: 456 Wayne: P: 49 SC: 168 QRS: 48 T: 21 INTERPRETIVE STATEMENTS: Normal sinus rhythm ST abnormality, possible digitalis effect Abnormal ECG Compared to ECG 01/29/2019 14:55:03 No significant changes Electronically Signed On 01-30-19 08:45:27 FULL FASHIONED GARMENT KNITTER by Armond Pineda
--- NOTE | 2019-01-30 08:48 | EKG ---
Test Date: 2019-01-29 Test Time: 14:55:03 Speech Therapist Early Intervention: DONNIE MEASUREMENT RESULTS: Intervals: Rate: 66 RI: 166 QRSD: 94 QT: 428 QTc: 448 Overton: P: 77 RI: 166 QRS: 56 T: 58 INTERPRETIVE STATEMENTS: Normal sinus rhythm Nonspecific ST abnormality Abnormal ECG Compared to ECG 12/14/2018 23:42:23 ST (T wave) deviation now present Myocardial infarct finding no longer present Electronically Signed On 01-30-19 08:45:40 [employer] by Armond Pineda
[2019-01-30] MEDS: LEVOTHYROXINE SOD 0.112 MG TAB PO SCH (11:56)
[2019-01-30] MEDS: FERROUS SULFATE 325 MG TAB PO SCH (11:56)
[2019-01-30] MEDS: FUROSEMIDE 40 MG TABLET PO SCH (11:56)
[2019-01-30] MEDS: CEPACOL LOZENGES PO PRN (14:14)
[2019-01-30] MEDS ORDERED: ENOXAPARIN 40 MG/0.4 ML SQ SCH (17:00)
[2019-01-30] MEDS: CLINDAMYCIN INJ 300 MG in NA CHLORIDE 0.9% 50 ML IV SCH (17:10)
--- NOTE | 2019-01-30 17:13 | PN ---
Date of Progress Note: 01/30/2019 Subjective: Patient seen and examined. Chart reviewed and case discussed with RN. Patient apparent ly complained of some chest pain as well as some burning in her legs with vancomycin yesterday and no w refusing to continue taking vancomycin. This is nonallergic reaction. No red man syndrome symptom s. Patient already had burning in her legs from neuropathy previously. Patient has multiple drug al lergies to multiple antibiotics. Daughter at the bedside, treatment plan explained, all questions an swered. Medications: List reviewed. Physical Examination: Vital Signs: Temperature 97.3, heart rate 61, blood pressure 132/62, respirations 19, O2 97% on room air. General: Awake, alert, oriented x3 elderly female, obese, in some mild distress. CV: S1, S2. Regular rate and rhythm. Peripheral pulses present. Respiratory: Moving air well bilaterally. No wheezing or stridor. Gastrointestinal: Abdomen is soft, nontender, nondistended. Positive bowel sounds. Extremities: No clubbing or cyanosis. Patient has diffuse peripheral edema, improving. Skin: Erythema of bilateral lower extremities, warm to touch. Tenderness to palpation with some wee ping wound. Neurologic: Nonfocal. Cranial nerves 2 through 12 intact grossly. No focal neurological deficits. Speech is normal. Laboratory Data: Sodium 144, potassium 3.8, chloride 112, CO2 of 28, BUN 33, creatinine 0.86, glucos e 88, calcium 7.8. WBC 5.6, H and H 8.7 and 25.3, platelets 177. Blood cultures pending. Wound cul ture from the right lower extremity showing 3+ gram-negative rods. Assessment And Plan: 83-year-old female with; 1.Bilateral lower extremity cellulitis with failed outpatient treatment, was on Keflex for 1 week wi thout any improvement. Patient now claiming reaction to vancomycin, which has been stopped. Patient will be switched over to clindamycin. Blood cultures are pending. Wound culture growing 3+ gram-ne gative rods. We will follow up on ID and sensitivity. Deep venous thrombosis has been ruled out; im proving. Continue to elevate, ice as needed, tramadol for pain. 2.Essential hypertension, stable. Continue home medications. 3.Hypothyroidism. Continue levothyroxine. 4.Chronic venous insufficiency. Continue with wound care. 5.Restless legs syndrome. Continue Requip. 6.Gastroesophageal reflux disease. Continue with PPI. No esophagitis. 7.Urinary incontinence. 8.Congestive heart failure, diastolic dysfunction. We will continue Lasix. Chronic, currently comp ensated. 9.Obesity, BMI is 31. 10.Deep venous thrombosis prophylaxis, Lovenox. Plan: Continue IV antibiotics, follow up on culture results, likely discharge in the next 24 to 48 h ours. /NAYELY Voice ID: [id number] Report ID: [id number]
[2019-01-30] MEDS ORDERED: ROPINIROLE HCL 0.25 MG TAB PO SCH (21:00)
[2019-01-30] MEDS ORDERED: PRAMIPEXOLE DI HCL 1.5 MG PO SCH (21:00)
[2019-01-31] MEDS: CLINDAMYCIN INJ 300 MG in NA CHLORIDE 0.9% 50 ML IV SCH ×2 (00:14→08:43)
[2019-01-31] MEDS: ACETAMINOPHEN 500 MG TAB PO PRN ×2 (02:54→11:48)
[2019-01-31] MEDS: LEVOTHYROXINE SOD 0.112 MG TAB PO SCH (05:21)
[2019-01-31 06:00] LABS: Absolute Lymphocytes (CBC) 1.1 K/uL (0.7-4.9); Basophils % 0.4 % (0-1.3); Hematocrit 25.8 % (36.0-45.0); Lymphocytes % 22.3 % (15.3-44.8); MPV 8.6 fL (7.6-11.3); RBC Red Blood Cell Count 2.74 M/uL (3.86-4.86)
[2019-01-31 06:21] LABS: Potassium 3.5 mmol/L (3.5-5.1)
[2019-01-31] MEDS: FUROSEMIDE 40 MG TABLET PO SCH (08:43)
[2019-01-31] MEDS: FERROUS SULFATE 325 MG TAB PO SCH ×2 (08:43→08:46)
[2019-01-31] MEDS: CEPACOL LOZENGES PO PRN (08:54)
[2019-01-31 08:59] VITALS: O2SAT 98
[2019-01-31] MEDS ORDERED: MEDIHONEY 44 ML TOPICAL TUBE TOP SCH (09:00)
[2019-01-31] MEDS ORDERED: HYDRALAZINE HCL 25 MG TABLET PO SCH (09:00)
--- NOTE | 2019-01-31 10:44 | RAD REPORT ---
EXAM DESCRIPTION: RAD - Knee Left 3 View - 01/31/2019 10:31 am CLINICAL HISTORY: Nontraumatic left knee pain COMPARISON: None. FINDINGS: No fracture, dislocation or periosteal reaction.Trace amount of joint fluid suspected. Med ial compartment narrowing is present with moderate size marginal spurs. Patella femoral joint space n arrowing present as well with patella articular surface marginal spurs. No fracture or acute bone pro cess. No air or foreign body in the soft tissues. Edematous changes are evident in the subcutaneous f atty tissues. IMPRESSION: Prominent knee joint degenerative changes are present as detailed. Minimal joint effusio n present. No acute bone or joint finding seen.
[2019-01-31] MEDS ORDERED: CEFEPIME/SWI 2gm 2 GM/20 ML SYR IV SCH (11:00)
[2019-01-31] MEDS ORDERED: ALBUTEROL 2.5 MG/3 ML NEB SOL NEB PRN (11:19)
[2019-01-31 13:42] VITALS: BP 172/75; TEMP 97.9
--- NOTE | 2019-01-31 16:30 | PN ---
Date of Progress Note: 01/31/2019 Subjective: Patient seen and examined. Chart reviewed and case discussed with RN and Dr. Friend. Liz ulloa has improvement in her lower extremity swelling. Now complaining of dizziness and vertigo. A lso complaining of left knee pain as well as wheezing. Medication List: Reviewed. Physical Examination: Vital Signs: Temperature 97.6, heart rate 61, blood pressure 163/70, respirations 18, O2 at 97% on 1 L via nasal cannula. General: Awake, alert, oriented x3. Elderly female, obese, in some mild distress. CV: S1, S2. Regular rate and rhythm. Peripheral pulses present. Respiratory: Moving air well bilaterally. Some upper airway noise and wheezing heard. Gastrointestinal: Abdomen is soft, nontender, nondistended. Positive bowel sounds. Extremities: No clubbing, cyanosis, or edema. Patient has peripheral edema bilaterally 2+. Neurologic: Nonfocal. Skin: Erythema of the bilateral lower extremities with a wound on the right lower extremity lateral aspect. Laboratory Data: Sodium 146, potassium 3.5, chloride 111, CO2 of 29, BUN 27, creatinine 0.96, glucos e 92, calcium 8. WBC 5.1, H and H of 8.6 and 25.8, platelets 172, neutrophils 64%. Wound culture fr om the right lower extremity is growing out Pseudomonas aeruginosa sensitive to cefepime. Knee x-ray shows prominent knee joint degenerative changes present. Minimal joint effusion. No acute bone or joint changes. Assessment And Plan: 83-year-old female with: 1.Bilateral lower extremity cellulitis with failed outpatient treatment secondary to Pseudomonas aer uginosa. Patient will be switched over to cefepime from clindamycin. Blood cultures pending. We wi ll continue with elevation. 2.Essential hypertension, stable. 3.Hypothyroidism. Continue levothyroxine. 4.Left knee pain. X-ray shows minimal effusion and degenerative changes. No acute fracture. Suppo rtive care. 5.Dizziness, vertigo, may be benign positional vertigo versus orthostatic hypotension. We will chec k orthostatic vital signs and have PT work with the patient. May need Daly maneuver. 6.Chronic venous insufficiency. Continue with wound care. 7.Restless legs syndrome. Continue Requip. 8.Gastroesophageal reflux disease without esophagitis. We will continue PPI. 9.Urinary incontinence. 10.Congestive heart failure, diastolic dysfunction. Continue Lasix. Chronic, compensated. 11.Obesity, BMI 31. 12.Deep venous thrombosis prophylaxis with Lovenox. Plan: ID consultation. Possible discharge today. Patient has multiple allergies to different IV an tibiotics. We will need to convert to oral antibiotics on discharge for 7 to 10 days. /NAYELY Voice ID: [id number] Report ID: [id number]
--- NOTE | 2019-01-31 18:06 | CON ---
History Of Present Illness: Patient is an 83-year-old female coming in after having a fall in the ba [place]. Patient also has cellulitis of her right leg with significant history of stasis dermatitis a nd stasis ulcers on both legs. Patient denies any headache, nausea, vomiting, chest pain, abdominal pain, constipation, diarrhea, having some challenges with her breathing also. Patient was brought in on 01/29 to the emergency room for further investigation. Past Medical History: Patient has significant past medical history of hypertension, restless legs sy ndrome, hypothyroidism, congestive heart failure, chronic lymphedema, urinary incontinence, gastroeso phageal reflux disease, and diastolic dysfunction of the heart. Past Surgical History: Hysterectomy, bilateral oophorectomy, left breast cyst removal, total knee re placement, cataract surgery. Allergies: ASPIRIN, CODEINE, PENICILLIN, STATIN, SULFA, MONTSERRAT INHIBITORS, LEVAQUIN, BETA-BLOCKERS, LILI CIUM CHANNEL BLOCKERS, DOXYCYCLINE, METOLAZONE. Medications: Currently, patient is on cefepime. See MAR for other medication. Review of Systems: 10-point review was performed. Family History: Noncontributory. Physical Examination: General: Patient lying in bed, not in any acute cardiopulmonary distress. Vital Signs: Temperature 97.6, pulse 61, respirations 21, blood pressure 163/70. HEENT: Unremarkable. Neck: Supple. Lungs: Basal crackles and scattered wheezing also noted. Heart: S1, S2. Regular. Abdomen: Soft, nontender. Bowel sounds present. Extremities: 3+ nonpitting edema with erythematous changes and ulceration noted on both legs and hyp erkeratotic skin noted mostly above the ankle region. Laboratory Data: Shows WBC 5.1, hemoglobin 8.6, platelets are 172. Chemistry shows sodium 146, pota ssium 3.5, chloride 111, bicarb 29, BUN 27, creatinine 0.9, glucose is 92. Microdata is growing Pseu domonas aeruginosa from wound cultures, sensitive to everything at this point. Assessment And Plan: Continue cefepime for Pseudomonas aeruginosa at this point. For the cellulitis versus stasis dermatitis of the legs, on discharge, patient can be sent on acetic acid to the open w ound area and continue cefepime for a total of 10 days. Keep legs elevated when possible. Apply pet roleum gel to the lower extremity, especially when keeping it elevated. Follow patient as needed. Thank you, Dr. Mckeon, for consult. NF/MODL Voice ID: [id number] Report ID: [id number]
[2019-01-31] MEDS ORDERED: CEFEPIME 2 GM VIAL IV SCH (21:00)
--- NOTE | 2019-02-01 03:49 | DS ---
Date of Discharge: 01/31/2019 Admitting Diagnoses: 1.Bilateral lower extremity cellulitis. 2.Essential hypertension. 3.Hypothyroidism. 4.Chronic venous insufficiency. 5.Restless legs syndrome. 6.Gastroesophageal reflux disease without esophagitis. 7.Urinary incontinence. 8.Congestive heart failure. Diastolic dysfunction, chronic. 9.Obesity, BMI 31. Discharge Diagnoses: 1.Bilateral lower extremity cellulitis with failed outpatient treatment secondary to Pseudomonas aer uginosa. 2.Essential hypertension, stable. 3.Hypothyroidism, on levothyroxine. 4.Chronic venous insufficiency. 5.Lower extremity wound growing pseudomonas. Continue with wound care. Acetic acid. 6.Restless legs syndrome, stable. 7.Gastroesophageal reflux disease without esophagitis, PPI. 8.Urinary incontinence. 9.Congestive heart failure, diastolic dysfunction, chronic. 10.Obesity, BMI 31. Hospital Course: The patient is an 83-year-old female who came in with lower extremity erythema, swe lling, pain. Due to the level of swelling DVT was considered. Doppler was ordered and DVT was ruled out. The patient had been on Keflex for 1 week and failed outpatient treatment with worsening sympt oms including erythema, pain, worsening swelling, chills consistent with cellulitis. Cultures were o btained. Wound culture grew out Pseudomonas aeruginosa. Infectious Disease, Dr. Friend was also con sulted, who recommended continuing wound care with acetic acid, petroleum jelly, and raising the legs . Patient was counseled regarding elevating her lower extremities while sitting. Patient was initia lly started on vancomycin; however, complained of burning of her lower extremities and chest pain. N o Red man type syndrome was experienced. Patient did not wish to continue with vancomycin at a slowe r rate, therefore antibiotics were switched to clindamycin. The patient's cultures came back with Ps eudomonas aeruginosa and was switched to cefepime. ID Dr. Friend was consulted. Her white blood jerilyn l count remained stable. There were no signs of sepsis. Her procalcitonin and lactate were negative . UA was also negative. Blood culture showed no growth. She had responded well. She was also give n Lasix to decrease the swelling of her lower extremities. Patient overall did well. She did walk w ell with physical therapy using a marker. She does have severe neck degenerative disk changes and sc oliosis. Patient was then cleared for discharge. She was then sent home in a stable condition. Activity: With walker. Diet: Low-sodium, free fluid restriction. Followup: Follow up with PCP in 2-3 days. Follow up with ID, Dr. Friend, in 2 weeks. [facility]. Return to ER for worsening condition. Medications: As per medication reconciliation list. For physical exam findings, please see progress note dictated on the day of discharge. Total time spent discharging the patient was 37 minutes. /NAYELY Voice ID: [id number] Report ID: [id number]
[2019-02-05] MEDS ORDERED: CLONIDINE 0.1 MG/PATCH TD SCH (09:00)
[2019-02-06] MEDS ORDERED: CLONIDINE 0.1 MG/PATCH TD SCH (09:00)
== END 2019-01-31 16:34 | disposition home or self-care (01) | DRG 603 ==
LOC: ER 12:35 → ERHOLD 15:18 → 2ND 17:03
PROVIDERS: ADMIT Family Medicine; ATTEND Family Medicine
DX: L03.116 Cellulitis of left lower limb (principal); I50.32 Chronic diastolic (congestive) heart failure; L03.115 Cellulitis of right lower limb; B96.5 Pseudomonas (aeruginosa) (mallei) (pseudomallei) as the cause of diseases classified elsewhere; E03.9 Hypothyroidism, unspecified; I87.2 Venous insufficiency (chronic) (peripheral); G25.81 Restless legs syndrome; K21.9 Gastro-esophageal reflux disease without esophagitis; R32 Unspecified urinary incontinence; I11.0 Hypertensive heart disease with heart failure; E66.9 Obesity, unspecified; Z68.31 Body mass index [BMI] 31.0-31.9, adult; Z88.6 Allergy status to analgesic agent; Z88.0 Allergy status to penicillin; Z88.2 Allergy status to sulfonamides; Z66 Do not resuscitate; Z96.651 Presence of right artificial knee joint
CPT/HCPCS: 36415; 80048; 80076; 80202; 81003; 82550; 82553; 83605; 83690; 84145; 84484; 85025; 85610; 85730; 87040; 87070; 87077; 87186; 87205; 93005; 93970; 94760; 96365; 96366; 96368; 97116; 97161; 97530; 99251; 99285; J0692; J1650; J3370; J7030

== ENCOUNTER 2019-06-01 01:30 | Observation (INO) | payer OTHER ==
--- OUTSIDE RECORDS SUMMARY | 2019-06-01 01:32 | XMS REPORT ---
:1935 [facility] [place] [address] [place] [id number] Care Team Providers Name Role Phone Unavailable Unavailable Unavailable Problems This patient has no known problems. Allergies, Adverse Reactions, Alerts This patient has no known allergies or adverse reactions. Medications This patient has no known medications.
[2019-06-01] MEDS ORDERED: IPRATROPIUM BROM 0.5MG/2.5ML ONE (01:41)
[2019-06-01] MEDS ORDERED: ALBUTEROL 2.5 MG/3 ML NEB SOL ONE (01:41)
[2019-06-01] MEDS ORDERED: NA CHLORIDE 0.9% 250 ML ONE ×2 (02:30→04:21)
[2019-06-01] MEDS ORDERED: VANCOMYCIN 1 GM/VIAL ONE (02:30)
--- NOTE | 2019-06-01 02:51 | ER ---
Nurse's Notes [facility] Name: Joyce Ramírez Age: 83 yrs Sex: Female : 1935 Arrival Date: 06/01/2019 Time: 01:32 Bed 20 Private MD: Diagnosis: Dyspnea;Unspecified combined systolic (congestive) and diastolic (congestive) heart failure;Edema, unspecified;Cellulitis and acute lymphangitis of other parts of limb;Venous insufficiency (chronic) (peripheral) Presentation: 05/31 01:40 Chief complaint: EMS states: PATIENT STARTED FEELING SICK AFTERNOON YESTERDAY. SHE HAS rv COUGH AND CONGESTION. FELT LIKE SHE HAS FEVER BUT 97.5F UPON CHECKING. NOTED WHEEZING, GAVE ALBUTEROL AND ATROVENT ON THE WAY. Coronavirus screen: The patient has NOT traveled to a country currently being monitored by the CDC within the last 14 days. Proceed with normal triage procedures. The patient has NOT had contact with any known and/or suspected case of coronavirus. Proceed with normal triage procedures. Ebola Screen: No symptoms or risks identified at this time. 01:40 Method Of Arrival: [facility] rv 01:44 Initial Sepsis Screen: Does the patient meet any 2 criteria? No. Patient's initial rv sepsis screen is negative. Does the patient have a suspected source of infection? No. Patient's initial sepsis screen is negative. Risk Assessment: Do you want to hurt yourself or someone else? Patient reports no desire to harm self or others. 01:44 Acuity: BRITTANI 3 rv 03:08 Onset of symptoms was May 31, 2019 at 13:00. rv Triage Assessment: 03:08 General: Appears uncomfortable. Respiratory: Reports shortness of breath at rest cough rv that is non-productive, Onset: The symptoms/episode began/occurred yesterday, the patient has moderate shortness of breath. Historical: - Allergies: 01:47 MONTSERRAT INHIBITORS; rv 01:47 Aspirin; rv 01:47 Beta-Blockers (Beta-Adrenergic Blocking Agts); rv 01:47 CALCIUM CHANNEL BLOCKING AGENTS-PHENYLALKYLAMINES; rv 01:47 Codeine; rv 01:47 Demerol; rv 01:47 Doxycycline; rv 01:47 Levofloxacin; rv 01:47 Metolazone; rv 01:47 PENICILLINS; rv 01:47 Idlnsdg-Aze-Mug Reductase Inhibitors; rv 01:47 Sulfa (Sulfonamide Antibiotics); rv 01:47 tolterodine; rv - PMHx: 01:47 Anemia; Cellulitis; CHF; GERD; Hyperlipidemia; Hypertension; Hypothyroidism; RLS; rv - PSHx: 01:47 Hysterectomy; rv - Immunization history:: Adult Immunizations up to date. - Social history:: Smoking status: Patient denies any tobacco usage or history of. - Family history:: not pertinent. Screenin:48 Abuse screen: Denies threats or abuse. Denies injuries from another. Nutritional rv screening: No deficits noted. Tuberculosis screening: No symptoms or risk factors identified. Fall Risk Fall in past 12 months (25 points). Secondary diagnosis (15 points) impaired mobility, No IV (0 pts). Ambulatory Aid- None/Bed Rest/Nurse Assist (0 pts). Gait- Impaired (20 pts.). Mental Status- Overestimates/Forgets Limitations (15 pts.). Total Hollingsworth Fall Scale indicates High Risk Score (45 or more points). Fall prevention measures have been instituted. Side Rails Up X 2 Placed Close to Nursing Station Frequent Obs/Assessments Occuring As available patient and family educated on Fall Prevention Program and Strategies. Assessment: 02:59 General: Appears in no apparent distress. uncomfortable, Behavior is calm, cooperative. rv Pain: Complains of pain in chest. Neuro: Level of Consciousness is awake, alert, obeys commands, Oriented to person, place, time, situation. Cardiovascular: Patient's skin is warm and dry. Rhythm is regular Chest pain is described as mild, quality is indigestion, is located in chest wall. Respiratory: Airway is patent Respiratory effort is labored, Breath sounds with wheezes bilaterally. GI: No signs and/or symptoms were reported involving the gastrointestinal system. : No signs and/or symptoms were reported regarding the genitourinary system. Derm: Skin with poor turgor Skin is red. Musculoskeletal: Swelling present in right leg and left leg. 03:06 Reassessment: noted cellulitis on both lower legs with swelling and redness, and rv tenderness. Vital Signs: 01:44 BP 173 / 74; Pulse 75; Resp 17; Temp 97.8(O); Pulse Ox 97% on R/A; Weight 81.65 kg; rv 03:09 BP 129 / 57; Pulse 91; Resp 19; Pulse Ox 96% on 3 lpm NC; rv ED Course: 01:32 Patient arrived in ED. ds1 01:37 Luis Doll MD is Attending Physician. jamse 01:40 Sal Liriano, ISABELLA is Primary Nurse. rv 01:45 Triage completed. rv 01:47 Arm band placed on Patient placed Patient notified of wait time. rv 02:15 No provider procedures requiring assistance completed. Inserted saline lock: 20 gauge rv in left antecubital area, using aseptic technique. Blood collected. 02:15 Initial lab(s) drawn, by me, sent to lab. First set of blood cultures drawn by me. rv 02:37 Second set of blood cultures drawn by me. rv 02:38 XRAY Chest (1 view) In Process Unspecified. EDMS 02:47 Juancarlos Clayton MD is Hospitalizing Provider. james 03:08 Patient has correct armband on for positive identification. front desk monitor on. Pulse rv ox on. NIBP on. 03:53 IV is patent, with fluids infusing freely, with good blood return, Patient admitted, IV rv remains in place. Administered Medications: 01:49 Drug: DuoNeb (3:1) (2.5 mg - 0.5 mg) 3 ml Route: Nebulizer; rv 02:41 Drug: vancoMYCIN 1 grams Route: IVPB; Infused Over: 2 hrs; Site: left antecubital; rv 03:50 Follow up: IV Status: Infusion continued upon admission rv 02:56 Drug: Lasix 40 mg Route: IVP; Site: left antecubital; rv 03:51 Follow up: Response: No adverse reaction rv 02:56 Drug: morphine 2 mg Route: IVP; Site: left antecubital; rv 02:57 Drug: Zofran (Ondansetron) 4 mg Route: IVP; Site: left antecubital; rv 03:50 Follow up: Response: No adverse reaction rv 03:50 Drug: morphine 2 mg {Note: rass 0.} Route: IVP; Site: left antecubital; rv 03:51 Follow up: Response: Medication administered at discharge. rv Outcome: 02:49 Decision to Hospitalize by Provider. james 03:52 Admitted to Med/surg accompanied by tech, via stretcher, room 203, with chart, Report rv called to LIDA MASON 03:52 Condition: good 03:52 Instructed on the need for admit, Demonstrated understanding of instructions. 03:54 Patient left the ED. rv Signatures: Dispatcher [employer] Luis Nash MD MD cha Sanford, Demi ds1 Sal Liriano RN RN rv
[2019-06-01 02:52] LABS: Urine Blood NEGATIVE (NEG); Urine Glucose NEGATIVE (NEG); Urine Protein NEGATIVE (NEG)
[2019-06-01] MEDS ORDERED: MORPHINE 4 MG/ML SYR ONE (02:52)
[2019-06-01] MEDS ORDERED: NA CHLORIDE 0.9% 500 ML ONE (02:52)
--- NOTE | 2019-06-01 02:52 | EDPHYS ---
Physician Documentation [facility] Name: Joyce Ramírez Age: 83 yrs Sex: Female : 1935 Arrival Date: 06/01/2019 Time: 01:32 Bed 20 Private MD: ED Physician Luis Doll HPI: 05/31 02:21 This 83 yrs old Female presents to ER via EMS with complaints of Shortness Of james Breath. 02:21 The patient has shortness of breath at rest, with light activity. Onset: The james symptoms/episode began/occurred 2 day(s) ago. The patient's shortness of breath has no apparent modifying factors. Associated signs and symptoms: Pertinent positives: non-productive cough. Severity of symptoms: At their worst the symptoms were mild moderate in the emergency department the symptoms are unchanged. The patient has not experienced similar symptoms in the past. Historical: - Allergies: 01:47 MONTSERRAT INHIBITORS; rv 01:47 Aspirin; rv 01:47 Beta-Blockers (Beta-Adrenergic Blocking Agts); rv 01:47 CALCIUM CHANNEL BLOCKING AGENTS-PHENYLALKYLAMINES; rv 01:47 Codeine; rv 01:47 Demerol; rv 01:47 Doxycycline; rv 01:47 Levofloxacin; rv 01:47 Metolazone; rv 01:47 PENICILLINS; rv 01:47 Wgqqgts-Wgk-Goi Reductase Inhibitors; rv 01:47 Sulfa (Sulfonamide Antibiotics); rv 01:47 tolterodine; rv - PMHx: 01:47 Anemia; Cellulitis; CHF; GERD; Hyperlipidemia; Hypertension; Hypothyroidism; RLS; rv - PSHx: 01:47 Hysterectomy; rv - Immunization history:: Adult Immunizations up to date. - Social history:: Smoking status: Patient denies any tobacco usage or history of. - Family history:: not pertinent. ROS: 02:21 Constitutional: Negative for fever, chills, and weight loss, Eyes: Negative for injury, james pain, redness, and discharge, ENT: Negative for injury, pain, and discharge, Neck: Negative for injury, pain, and swelling, Cardiovascular: Negative for chest pain, palpitations, and edema, Abdomen/GI: Negative for abdominal pain, nausea, vomiting, diarrhea, and constipation, Back: Negative for injury and pain, : Negative for injury, bleeding, discharge, and swelling, MS/Extremity: Negative for injury and deformity, Skin: Negative for injury, rash, and discoloration, Neuro: Negative for headache, weakness, numbness, tingling, and seizure, Psych: Negative for depression, anxiety, suicide ideation, homicidal ideation, and hallucinations, Allergy/Immunology: Negative for hives, rash, and allergies, Endocrine: Negative for neck swelling, polydipsia, polyuria, polyphagia, and marked weight changes, Hematologic/Lymphatic: Negative for swollen nodes, abnormal bleeding, and unusual bruising. 02:21 Respiratory: Positive for cough, shortness of breath, wheezing, expiratory. 02:21 MS/extremity: Positive for decreased range of motion, pain, swelling, tenderness, of the right leg and left leg. Exam: 02:21 Constitutional: This is a well developed, well nourished patient who is awake, alert, james and in no acute distress. Head/Face: Normocephalic, atraumatic. Eyes: Pupils equal round and reactive to light, extra-ocular motions intact. Lids and lashes normal. Conjunctiva and sclera are non-icteric and not injected. Cornea within normal limits. Periorbital areas with no swelling, redness, or edema. ENT: Nares patent. No nasal discharge, no septal abnormalities noted. Tympanic membranes are normal and external auditory canals are clear. Oropharynx with no redness, swelling, or masses, exudates, or evidence of obstruction, uvula midline. Mucous membranes moist. Neck: Trachea midline, no thyromegaly or masses palpated, and no cervical lymphadenopathy. Supple, full range of motion without nuchal rigidity, or vertebral point tenderness. No Meningismus. Chest/axilla: Normal chest wall appearance and motion. Nontender with no deformity. No lesions are appreciated. Cardiovascular: Regular rate and rhythm with a normal S1 and S2. No gallops, murmurs, or rubs. Normal PMI, no JVD. No pulse deficits. Abdomen/GI: Soft, non-tender, with normal bowel sounds. No distension or tympany. No guarding or rebound. No evidence of tenderness throughout. Back: No spinal tenderness. No costovertebral tenderness. Full range of motion. Female : Normal external genitalia. Skin: Warm, dry with normal turgor. Normal color with no rashes, no lesions, and no evidence of cellulitis. Neuro: Awake and alert, GCS 15, oriented to person, place, time, and situation. Cranial nerves II-XII grossly intact. Motor strength 5/5 in all extremities. Sensory grossly intact. Cerebellar exam normal. Normal gait. Psych: Awake, alert, with orientation to person, place and time. Behavior, mood, and affect are within normal limits. 02:21 Respiratory: mild respiratory distress is noted, Respirations: labored breathing, that is moderate, Breath sounds: decreased breath sounds, rhonchi, wheezing: expiratory Respiratory rate: 17 Vital Signs: 01:44 BP 173 / 74; Pulse 75; Resp 17; Temp 97.8(O); Pulse Ox 97% on R/A; Weight 81.65 kg; rv 03:09 BP 129 / 57; Pulse 91; Resp 19; Pulse Ox 96% on 3 lpm NC; rv MDM: 01:37 Patient medically screened. [facility] 02:24 Data reviewed: vital signs, nurses notes, lab test result(s), EKG, radiologic studies, [facility] plain films. 05/31 02:09 Order name: Basic Metabolic Panel 05/31 02:09 Order name: CBC with Diff 05/31 02:09 Order name: LFT's 05/31 02:09 Order name: Magnesium 05/31 02:09 Order name: NT PRO-BNP 05/31 02:09 Order name: PT-INR 05/31 02:09 Order name: Troponin (emerg Dept Use Only) 05/31 02:09 Order name: XRAY Chest (1 view) 05/31 02:20 Order name: Blood Culture Adult (2) [facility] 05/31 02:20 Order name: Urine Culture [facility] 05/31 02:20 Order name: Procalcitonin [facility] 05/31 02:47 Order name: Urine Dipstick--Ancillary (enter results) mw2 05/31 02:09 Order name: EKG; Complete Time: 02:10 05/31 02:09 Order name: Cardiac monitoring; Complete Time: 02:30 05/31 02:09 Order name: EKG - Nurse/Tech; Complete Time: 02:31 05/31 02:09 Order name: IV Saline Lock; Complete Time: 02:31 05/31 02:09 Order name: Labs collected and sent; Complete Time: 02:31 05/31 02:09 Order name: O2 Per Protocol; Complete Time: 02:40 rv 05/31 02:09 Order name: O2 Sat Monitoring; Complete Time: 02:40 rv 05/31 02:20 Order name: Urine Dipstick-Ancillary (obtain specimen); Complete Time: 02:41 [facility] 05/31 03:41 Order name: CONS Physician Consult EDMS 05/31 03:41 Order name: Heart Healthy EDMS Administered Medications: 01:49 Drug: DuoNeb (3:1) (2.5 mg - 0.5 mg) 3 ml Route: Nebulizer; rv 02:41 Drug: vancoMYCIN 1 grams Route: IVPB; Infused Over: 2 hrs; Site: left antecubital; rv 03:50 Follow up: IV Status: Infusion continued upon admission rv 02:56 Drug: Lasix 40 mg Route: IVP; Site: left antecubital; rv 03:51 Follow up: Response: No adverse reaction rv 02:56 Drug: morphine 2 mg Route: IVP; Site: left antecubital; rv 02:57 Drug: Zofran (Ondansetron) 4 mg Route: IVP; Site: left antecubital; rv 03:50 Follow up: Response: No adverse reaction rv 03:50 Drug: morphine 2 mg {Note: rass 0.} Route: IVP; Site: left antecubital; rv 03:51 Follow up: Response: Medication administered at discharge. rv Disposition: 06/01/19 02:49 Hospitalization ordered by Juancarlos Clayton for Inpatient Admission. Preliminary diagnosis are Dyspnea, Unspecified combined systolic (congestive) and diastolic (congestive) heart failure, Edema, unspecified, Cellulitis and acute lymphangitis of other parts of limb, Venous insufficiency (chronic) (peripheral). - Bed requested for Telemetry/MedSurg (Inpatient). - Status is Inpatient Admission. rv - Condition is Fair. - Problem is new. - Symptoms have improved. Signatures: Dispatcher [employer] EDMO Nenita Chapin RN RN mw Anderson, Corey, MD MD cha Vicente, Ronaldo, RN RN rv Corrections: (The following items were deleted from the chart) 03:20 02:49 Hospitalization Ordered by Juancarlos Clayton MD for Inpatient Admission. Preliminary diagnosis is Dyspnea; Unspecified combined systolic (congestive) and diastolic (congestive) heart failure; Edema, unspecified; Cellulitis and acute lymphangitis of other parts of limb; Venous insufficiency (chronic) (peripheral). Bed requested for Telemetry/MedSurg (Inpatient). Status is Inpatient Admission. Condition is Fair. Problem is new. Symptoms have improved. james 03:54 03:20 06/01/2019 02:49 Hospitalization Ordered by Juancarlos Clayton MD for Inpatient rv Admission. Preliminary diagnosis is Dyspnea; Unspecified combined systolic (congestive) and diastolic (congestive) heart failure; Edema, unspecified; Cellulitis and acute lymphangitis of other parts of limb; Venous insufficiency (chronic) (peripheral). Bed requested for Telemetry/MedSurg (Inpatient). Status is Inpatient Admission. Condition is Fair. Problem is new. Symptoms have improved. mw
[2019-06-01 02:53] LABS: Protime INR 0.93
[2019-06-01] MEDS ORDERED: ONDANSETRON 4 MG/2 ML VIAL ONE (02:53)
[2019-06-01] MEDS ORDERED: FUROSEMIDE 20 MG/ 2ML VIAL ONE (02:53)
[2019-06-01 02:58] LABS: ALT/SGPT 16 U/L (12-78); AST/SGOT 16 U/L (15-37); Albumin 3.9 g/dL (3.4-5.0); Alkaline Phosphatase 53 U/L (45-117); BUN Blood Urea Nitrogen 53 mg/dL (7-18); Bicarbonate 34 mmol/L (21-32); Bilirubin Direct 0.1 mg/dL (0-0.2); Bilirubin Total 0.6 mg/dL (0.2-1.0); Glucose Level 127 mg/dL (74-106); Magnesium 2.6 mg/dL (1.8-2.4); NT PRO-BNP 446 pg/mL (<450); Potassium 4.1 mmol/L (3.5-5.1); Sodium Level 135 mmol/L (136-145); Troponin (Emerg Dept Use Only) < 0.02 ng/mL (0.0-0.045)
[2019-06-01 03:17] LABS: Absolute Lymphocytes (CBC) 1.7 K/uL (0.7-4.9); Basophils % 0.6 % (0-1.3); Hematocrit 30.6 % (36.0-45.0); Lymphocytes % 24.5 % (15.3-44.8); MPV 9.3 fL (7.6-11.3); RBC Red Blood Cell Count 3.39 M/uL (3.86-4.86)
[2019-06-01] MEDS ORDERED: ACETAMINOPHEN 500 MG TAB PO PRN (03:33)
[2019-06-01] MEDS ORDERED: ONDANSETRON 4 MG/2 ML VIAL IV PRN (03:33)
[2019-06-01] MEDS ORDERED: NACHLORIDE 0.45% 1,000 ML IV SCH (04:00)
[2019-06-01] MEDS ORDERED: CEFTRIAXONE/SWI 1gm 1 GM/10 ML SYR IV SCH (04:00)
[2019-06-01] MEDS ORDERED: AZITHROMYCIN 500 MG INJ IVPB ONE (04:21)
[2019-06-01 04:27] VITALS: BMI 33.7
[2019-06-01] MEDS ORDERED: AZITHROMYCIN IV 250 MG in NA CHLORIDE 0.9% 250 ML IVPB SCH (06:00)
--- NOTE | 2019-06-01 07:28 | EKG ---
Test Date: 2019-06-01 Test Time: 02:17:22 Extraction Machine Operator: RV MEASUREMENT RESULTS: Intervals: Rate: 82 NE: 164 QRSD: 86 QT: 372 QTc: 434 [place]: P: 28 NE: 164 QRS: 25 T: 162 INTERPRETIVE STATEMENTS: Normal sinus rhythm Left ventricular hypertrophy with repolarization abnormality Possible Inferior infarct, age undetermined Abnormal ECG Compared to ECG 01/29/2019 19:24:24 Left ventricular hypertrophy now present Early repolarization now present Myocardial infarct finding now present ST (T wave) deviation no longer present Electronically Signed On 06-01-19 07:27:35 CDT by Armond Pineda
--- NOTE | 2019-06-01 07:41 | P.HP ---
Certification for Inpatient Patient admitted to: Observation With expected LOS: <2 Midnights Patient will require the following post-hospital care: None Practitioner: I am a practitioner with admitting privileges, knowledge of patient current condition, hospital course, and medical plan of care. Services: Services provided to patient in accordance with Admission requirements found in Title 42 Section 412.3 of the Code of Federal Regulations Patient History Date of Service: 06/01/19 Reason for admission: Dyspnea; History of Present Illness: Patient is an 83-year-old female came to the hospital with shortness of breath. She has apparently been sick since yesterday afternoon and has been complaining of coughing congestion. She has also been having to use her neb treatments. She had has not had a fever. She came to the hospital for further evaluation. She has a very poor historian but she follows up with Nephrology and her PCP is Dr. Sexton. She does not have a bran mixer per her recollection. She also has lower extremity erythema of the legs. I believe this is chronic as a senior in the past. She tells me that her legs are hurting and burning. Will go ahead and start her on vancomycin for the leg infection along with medication for upper respiratory/pneumonic infection. We will Consult Pulmonary as well. Patient be admitted to the hospital for further workup. Allergies aspirin Allergy (Intermediate, Verified 01/29/19 21:39) Nausea/Vomiting codeine Allergy (Intermediate, Verified 01/29/19 21:39) Nervousness, can't sleep Penicillins Allergy (Intermediate, Verified 01/29/19 21:39) diarrhea Lpniokl-Ulv-Aop Reductase Inhibitor Allergy (Intermediate, Verified 12/15/18 03: 39) restless leg syndrome Sulfa (Sulfonamide Antibiotics) Allergy (Intermediate, Verified 01/29/19 21:39) Dizziness, hallucinations MONTSERRAT Inhibitors Allergy (Verified 01/29/19 21:39) Anaphylaxis levofloxacin Allergy (Verified 12/15/18 03:39) Shortness of breath tolterodine Allergy (Verified 12/15/18 03:39) ankle swelling and frequent urinating Beta-Blockers (Beta-Adrenergic Bloc Adverse Reaction (Verified 12/15/18 03:39) unknown Calcium Channel Blocking Agents-Dih Adverse Reaction (Verified 12/15/18 03:39) nervousness doxycycline Adverse Reaction (Verified 12/15/18 03:39) severe headache metolazone Adverse Reaction (Verified 12/15/18 03:39) severe back pain Home Medications: Ferrous Sulfate [Iron] 65 mg PO DAILY 08/06/16 Pramipexole Di-HCl [Pramipexole ER] 1.5 mg PO BEDTIME 08/06/16 Levothyroxine [Synthroid*] 112 mcg PO [id number] 12/11/17 Ropinirole HCl [Requip] 0.5 mg PO BEDTIME 12/11/17 Calcium Lactate 255 mg PO TID 07/19/18 Furosemide 80 mg PO DAILY 30 Days #30 tablet 07/20/18 Cholecalciferol (Vitamin D3) [Vitamin D3] 2,000 unit PO DAILY 12/15/18 cloNIDine [Clonidine] 0.2 mg TD EVERY 7TH DAY 01/29/19 Magnesium l-Lactate [Mag-Tab Sr] 2 tab PO DAILY 02/12/19 Albuterol Sulfate [Albuterol Sulfate Hfa] 90 mcg IH DAILY PRN 06/01/19 Ferrous Gluconate [Iron] 65 mg PO SEECOM 06/01/19 Fluticasone [Flonase 50MCG Nasal [place]*] 50 mcg IH DAILY 06/01/19 Hydralazine [Apresoline] 50 mg PO BID 06/01/19 metOLazone [Metolazone] 5 mg PO EVERY 7TH DAY 06/01/19 - Past Medical/Surgical History Has patient received pneumonia vaccine in the past: Yes Diabetic: No -: Hypertension -: Hypothyroidism -: Edema to the lower extremities -: Venous insufficiency -: Restless leg syndrome -: GERD -: Urinary incontinence -: CHF, likely diastolic dysfunction -: Torn retina rt -: Hysterectomy -: Bilateral oophorectomy -: Left breast cyst removed -: Total right knee replacement -: Cataract surgery Psychosocial/ Personal History: Patient is , she has 3 children. She does not work. She lives by herself but near family. - Family History Sister Medical History: Lung disease Notes: Copd,Asthma Father Medical History: Heart disease Mother Medical History: Hypertension - Social History Smoking Status: Never smoker Alcohol use: No CD- Drugs: No Caffeine use: No Place of Residence: Home Review of Systems Difficult to obtain because patient is a poor historian Physical Examination - Vital Signs Temperature: 98.1 F Blood Pressure: 119/51 Pulse: 80 Respirations: 18 Pulse Ox (%): 94 - Physical Exam General: Alert, In no apparent distress, Demented, Confused HEENT: Atraumatic, PERRLA, Mucous membr. moist/pink, EOMI, Sclerae nonicteric Neck: Supple, 2+ carotid pulse no bruit, No LAD, Without JVD or thyroid abnormality Respiratory: Diminished, Expiratory wheezes Cardiovascular: Regular rate/rhythm, Normal S1 S2, Systolic murmur Gastrointestinal: Normal bowel sounds, Soft and benign, Non-distended, No tenderness Musculoskeletal: No clubbing, No swelling, No tenderness Integumentary: Skin lesion, Tenderness/swelling, Erythema, Warmth Neurological: Normal speech, Normal tone, Sensation intact, Cranial nerves 3-12 intact, Normal affect, Abnormal gait, Abnormal strength Lymphatics: No axilla or inguinal lymphadenopathy - Studies Laboratory Data (last 24 hrs) 06/01/19 02:15: PT 11.0, INR 0.93 06/01/19 02:15: WBC 7.0, Hgb 10.3 L, Hct 30.6 L, Plt Count 222 06/01/19 02:15: Sodium 135 L, Potassium 4.1, BUN 53 H, Creatinine 1.20, Glucose 127 H, Magnesium 2.6 H, Total Bilirubin 0.6, AST 16, ALT 16, Alkaline Phosphatase 53 Assessment & Plan - Problems (Diagnosis) (1) Shortness of breath Current Visit: Yes Status: Acute (2) Chronic venous hypertension (idiopathic) with ulcer and inflammation of bilateral lower extremity Current Visit: No Status: Acute (3) Dementia Current Visit: No Status: Acute (4) Lichen planus pemphigoides Onset Date: 02/13/18 Current Visit: No Status: Acute (5) Lymphedema Onset Date: 02/13/18 Current Visit: No Status: Acute (6) Chronic renal disease Onset Date: 06/28/16 Current Visit: No Status: Chronic Qualifiers: (7) Hypertension Onset Date: 05/24/16 Current Visit: No Status: Chronic Qualifiers: (8) Hypothyroidism Onset Date: 06/28/16 Current Visit: No Status: Chronic Qualifiers: (9) Cellulitis Onset Date: 12/12/17 Current Visit: No Status: Resolved - Plan 1. Continue with IV antibiotic 2. Continue with local wound care 3. Pulmonary consultation 4. Hep-Lock IV 5. Nebs, steroids, and antibiotics for upper respiratory infection as well as a lower extremity cellulitis 6. Strict blood sugar monitoring 7. Pain control 8. Monitor renal function closely 9. GI and DVT prophylaxis - Advance Directives Does patient have a Living Will: Yes Does patient have a Durable POA for Healthcare: Yes
[2019-06-01] MEDS ORDERED: VANCOMYCIN 1.5 GM in NA CHLORIDE 0.9% 500 ML IVPB SCH (08:00)
[2019-06-01] MEDS ORDERED: ALBUTEROL 2.5 MG/3 ML NEB SOL NEB SCH (08:00)
[2019-06-01] MEDS ORDERED: IPRATROPIUM BROM 0.5MG/2.5ML NEB SCH (08:00)
--- NOTE | 2019-06-01 08:41 | RAD REPORT ---
EXAM DESCRIPTION: RAD - Chest Single View - 06/01/2019 2:37 am CLINICAL HISTORY: COUGH COMPARISON: Portable November 2018 and June 2018 TECHNIQUE: AP portable chest image was obtained 06/01/2019 2:37 am . FINDINGS: Lung volumes are low. No focal mass or consolidation. Patient has a prominent interstitial pattern. Early edema and infiltrate can be masked in this setting. Early failure could be masked. Heart size is normal range. Vasculature is mildly prominent. No measurable pleural effusion and no pn eumothorax. No acute bone findings seen. There is likely shoulder joint laxity. No acute aortic findi ngs suspected. IMPRESSION: Shallow inspiration examination showing prominent vasculature and lung markings. This is primarily a baseline pattern; however, early failure, volume overload or interstitial infiltr ate can be masked.
[2019-06-01] MEDS ORDERED: METHYLPREDNISOLONE 40 MG INJ IV SCH (09:00)
[2019-06-01] MEDS: ENOXAPARIN 40 MG/0.4 ML SQ SCH (10:00)
--- NOTE | 2019-06-01 11:38 | P.PN ---
Subjective Date of Service: 06/01/19 Chief Complaint: Bilateral lower extremity pain Patient report pain burning sensation in bilateral lower extremities. No major changes from yesterday. She has been afebrile. Physical Examination - Vital Signs Temperature: 97.2 F Blood Pressure: 121/55 Pulse: 82 Respirations: 16 Pulse Ox (%): 94 - Physical Exam General: Alert, In no apparent distress, Oriented x3 HEENT: Mucous membr. moist/pink Neck: Supple, JVD not distended Respiratory: Clear to auscultation bilaterally, Normal air movement Cardiovascular: Regular rate/rhythm, Normal S1 S2, Edema (+bilateral lower extremities) Gastrointestinal: Normal bowel sounds, Soft and benign, Non-distended, No tenderness Musculoskeletal: Erythema (Bilateral legs) Integumentary: Other (Venous stasis dermatitis bilateral lower extremities with areas of raised erythematous lesions.) Neurological: Normal speech, Normal strength at 5/5 x4 extr - Studies Laboratory Data (last 24 hrs) 06/01/19 02:15: PT 11.0, INR 0.93 06/01/19 02:15: WBC 7.0, Hgb 10.3 L, Hct 30.6 L, Plt Count 222 06/01/19 02:15: Sodium 135 L, Potassium 4.1, BUN 53 H, Creatinine 1.20, Glucose 127 H, Magnesium 2.6 H, Total Bilirubin 0.6, AST 16, ALT 16, Alkaline Phosphatase 53 Assessment And Plan - Current Problems (Diagnosis) (1) Cellulitis Onset Date: 05/24/16 Current Visit: No Status: Acute Qualifiers: Site of cellulitis: extremity Site of cellulitis of extremity: lower extremity Laterality: unspecified laterality Qualified Code(s): L03.119 - Cellulitis of unspecified part of limb (2) Chronic venous hypertension (idiopathic) with ulcer and inflammation of bilateral lower extremity Current Visit: No Status: Chronic (3) Lymphedema Onset Date: 02/13/18 Current Visit: No Status: Chronic (4) Chronic renal disease, stage 3, moderately decreased glomerular filtration rate (GFR) between 30-59 mL/min/1.73 square meter Current Visit: No Status: Chronic - Plan Will treat with IV antibiotics for cellulitis. Will treat with a few doses of IV Lasix Continue home dose oral metolazone Keep legs elevated.
[2019-06-01 11:41] LABS: Arterial Blood Carboxyhemoglob 1.2 % (0-1.5); Blood Gas Oxyhemoglobin 90.4 % (94-97); Blood O2 Saturation 92.6 % (92-98.5)
[2019-06-01] MEDS: VANCOMYCIN 1.5 GM in NA CHLORIDE 0.9% 500 ML IVPB SCH ×2 (12:28→12:35)
[2019-06-01] MEDS ORDERED: ALBUTEROL 2.5 MG/3 ML NEB SOL NEB PRN (13:04)
--- NOTE | 2019-06-01 13:05 | P.CNS ---
Date of Consult: 06/01/19 Reason for Consult: Wheezing Chief Complaint: Shortness of breath History of Present Illness: Patient is 83 years of age: Patient was feeling sick for about a day some wheezing cough congestion no fever patient has intermittent wheezing is never smoked no prior history of pulmonary complaints uses albuterol at home. Patient complain of worsening lower extremity edema history of lymphedema for the past 2-3 years Also uses an oxygen at home at night Allergies aspirin Allergy (Intermediate, Verified 01/29/19 21:39) Nausea/Vomiting codeine Allergy (Intermediate, Verified 01/29/19 21:39) Nervousness, can't sleep Penicillins Allergy (Intermediate, Verified 01/29/19 21:39) diarrhea Vjagmcc-Urp-Aoo Reductase Inhibitor Allergy (Intermediate, Verified 12/15/18 03: 39) restless leg syndrome Sulfa (Sulfonamide Antibiotics) Allergy (Intermediate, Verified 01/29/19 21:39) Dizziness, hallucinations MONTSERRAT Inhibitors Allergy (Verified 01/29/19 21:39) Anaphylaxis levofloxacin Allergy (Verified 12/15/18 03:39) Shortness of breath tolterodine Allergy (Verified 12/15/18 03:39) ankle swelling and frequent urinating Beta-Blockers (Beta-Adrenergic Bloc Adverse Reaction (Verified 12/15/18 03:39) unknown Calcium Channel Blocking Agents-Dih Adverse Reaction (Verified 12/15/18 03:39) nervousness doxycycline Adverse Reaction (Verified 12/15/18 03:39) severe headache metolazone Adverse Reaction (Verified 12/15/18 03:39) severe back pain Home Medications: Ferrous Sulfate [Iron] 65 mg PO DAILY 08/06/16 Pramipexole Di-HCl [Pramipexole ER] 1.5 mg PO BEDTIME 08/06/16 Levothyroxine [Synthroid*] 112 mcg PO [id number] 12/11/17 Ropinirole HCl [Requip] 0.5 mg PO BEDTIME 12/11/17 Calcium Lactate 255 mg PO TID 07/19/18 Furosemide 80 mg PO DAILY 30 Days #30 tablet 07/20/18 Cholecalciferol (Vitamin D3) [Vitamin D3] 2,000 unit PO DAILY 12/15/18 cloNIDine [Clonidine] 0.2 mg TD EVERY 7TH DAY 01/29/19 Magnesium l-Lactate [Mag-Tab Sr] 2 tab PO DAILY 02/12/19 Albuterol Sulfate [Albuterol Sulfate Hfa] 90 mcg IH DAILY PRN 06/01/19 Ferrous Gluconate [Iron] 65 mg PO SEECOM 06/01/19 Fluticasone [Flonase 50MCG Nasal [place]*] 50 mcg IH DAILY 06/01/19 Hydralazine [Apresoline] 50 mg PO BID 06/01/19 metOLazone [Metolazone] 5 mg PO EVERY 7TH DAY 06/01/19 - Past Medical/Surgical History Diabetic: No -: Hypertension -: Hypothyroidism -: Edema to the lower extremities -: Venous insufficiency -: Restless leg syndrome -: GERD -: Urinary incontinence -: CHF, likely diastolic dysfunction -: Torn retina rt -: Hysterectomy -: Bilateral oophorectomy -: Left breast cyst removed -: Total right knee replacement -: Cataract surgery Psychosocial/ Personal History: Patient is , she has 3 children. She does not work. She lives by herself but near family. - Family History Sister Medical History: Lung disease Notes: Copd,Asthma Father Medical History: Heart disease Mother Medical History: Hypertension - Social History Smoking Status: Never smoker Alcohol use: No CD- Drugs: No Caffeine use: No Place of Residence: Home Review of Systems 10-point ROS is otherwise unremarkable General: Weakness Respiratory: Cough, Shortness of Breath Cardiovascular: Edema (Bilateral edema) Physical Examination Temp Pulse Resp BP Pulse Ox 97.8 F 68 16 107/53 L 93 06/01/19 12:00 06/01/19 12:00 06/01/19 12:00 06/01/19 12:00 06/01/19 12:00 General: Alert, Oriented x3 Neck: Supple Respiratory: Clear to auscultation bilaterally Cardiovascular: Regular rate/rhythm, Edema (Bilateral edema chronic is Hematest changes) Laboratory Data (last 24 hrs) 06/01/19 02:15: PT 11.0, INR 0.93 06/01/19 02:15: WBC 7.0, Hgb 10.3 L, Hct 30.6 L, Plt Count 222 06/01/19 02:15: Sodium 135 L, Potassium 4.1, BUN 53 H, Creatinine 1.20, Glucose 127 H, Magnesium 2.6 H, Total Bilirubin 0.6, AST 16, ALT 16, Alkaline Phosphatase 53 - Problems (1) Shortness of breath Current Visit: Yes Status: Acute Plan: Patient is 83 years of age admitted with cough congestion fever wheezing never smoked patient was hypoxic hypercapnic mild normocytic anemia negative pro calcitonin chest x-ray shows some interstitial changes normal echo in July of 2018 probably has underlying diastolic dysfunction which may be causing her wheezing I have underlying obstructive airways disease BNP is only borderline patient is on metolazone and Lasix at home a Dc antibiotics may benefit from a long-acting bronchodilator either Advair or Symbicort at home the need outpatient pulmonary function testing at some Man steroids room-air saturation is satisfactory plan for discharge I think she will benefit more from spironolactone 25 mg twice a day Lasix p.r.n.
[2019-06-01] MEDS: SPIRONOLACTONE 25 MG TABLET PO SCH ×2 (17:19→20:14)
[2019-06-01] MEDS: predniSONE 20 MG TAB PO SCH (20:14)
[2019-06-02 06:45] LABS: Potassium 3.8 mmol/L (3.5-5.1)
[2019-06-02] MEDS: ENOXAPARIN 40 MG/0.4 ML SQ SCH (08:55)
[2019-06-02] MEDS: SPIRONOLACTONE 25 MG TABLET PO SCH ×3 (08:55→21:43)
[2019-06-02] MEDS: predniSONE 20 MG TAB PO SCH ×2 (08:55→20:36)
[2019-06-02] MEDS ORDERED: POTASSIUM CL SA 10 MEQ TAB PO ONE (09:00)
[2019-06-02] MEDS ORDERED: VANCOMYCIN 1 GM in NA CHLORIDE 0.9% 250 ML IVPB SCH (10:00)
[2019-06-02] MEDS ORDERED: VANCOMYCIN 1.5 GM in NA CHLORIDE 0.9% 500 ML IVPB SCH ×2 (11:00→23:00)
--- NOTE | 2019-06-02 11:21 | P.PN ---
Subjective Date of Service: 06/02/19 Chief Complaint: Shortness of breath Subjective: Improving Patient complaining of puffy face. She states the lower extremity swelling, erythema and burning sensation have improved. She has been afebrile. She currently denies shortness of breath. Physical Examination - Vital Signs Temperature: 97.0 F Blood Pressure: 127/55 Pulse: 63 Respirations: 18 Pulse Ox (%): 92 - Physical Exam General: Alert, In no apparent distress HEENT: Mucous membr. moist/pink, Sclerae nonicteric Neck: Supple, JVD not distended Respiratory: Clear to auscultation bilaterally, Normal air movement Cardiovascular: Regular rate/rhythm, Normal S1 S2, Edema (1+ bilateral lower extremity pitting edema. Bilateral lower extremity edema have improved.) Gastrointestinal: Normal bowel sounds, Soft and benign, No tenderness Musculoskeletal: Erythema (Bilateral lower extremities), Other (Bilateral lower extremity lymphedema.) Integumentary: Other (Venostasis dermatitis of bilateral lower extremities.) Neurological: Other (Nonfocal.) Assessment And Plan - Current Problems (Diagnosis) (1) Cellulitis Onset Date: 05/24/16 Current Visit: No Status: Acute Qualifiers: Site of cellulitis: extremity Site of cellulitis of extremity: lower extremity Laterality: unspecified laterality Qualified Code(s): L03.119 - Cellulitis of unspecified part of limb (2) Chronic venous hypertension (idiopathic) with ulcer and inflammation of bilateral lower extremity Current Visit: No Status: Chronic (3) Lymphedema Onset Date: 02/13/18 Current Visit: No Status: Chronic (4) Chronic renal disease, stage 3, moderately decreased glomerular filtration rate (GFR) between 30-59 mL/min/1.73 square meter Current Visit: No Status: Chronic (5) COPD exacerbation Current Visit: Yes Status: Acute - Plan Cultures are negative. Continue IV antibiotics for 1 more day. IV Lasix today Patient started on spironolactone by pulmonary Keep legs elevated. Bronchodilators p.r.n.
[2019-06-02] MEDS: FUROSEMIDE 40 MG/4 ML VIAL IV SCH (17:09)
[2019-06-03 06:00] VITALS: O2SAT 94
[2019-06-03 07:08] LABS: Potassium 4.1 mmol/L (3.5-5.1)
[2019-06-03] MEDS: predniSONE 20 MG TAB PO SCH (09:35)
[2019-06-03] MEDS: SPIRONOLACTONE 25 MG TABLET PO SCH (09:36)
[2019-06-03] MEDS: ENOXAPARIN 40 MG/0.4 ML SQ SCH (09:37)
[2019-06-03] MEDS: FUROSEMIDE 40 MG/4 ML VIAL IV SCH (09:40)
[2019-06-03 09:46] VITALS: BP 126/60
[2019-06-03 09:58] VITALS: TEMP 97.7
--- NOTE | 2019-06-03 11:13 | P.DS ---
Admission Date: 06/02/19 Discharge Date: 06/03/19 Disposition: ROUTINE DISCHARGE Discharge Condition: FAIR Reason for Admission: Shortness of breath Consultations: Pulmonary - Problems (1) Cellulitis Onset Date: 05/24/16 Current Visit: No Status: Acute Qualifiers: Site of cellulitis: extremity Site of cellulitis of extremity: lower extremity Laterality: unspecified laterality Qualified Code(s): L03.119 - Cellulitis of unspecified part of limb (2) Chronic venous hypertension (idiopathic) with ulcer and inflammation of bilateral lower extremity Current Visit: Yes Status: Chronic (3) Lymphedema Onset Date: 02/13/18 Current Visit: Yes Status: Chronic (4) Chronic renal disease, stage 3, moderately decreased glomerular filtration rate (GFR) between 30-59 mL/min/1.73 square meter Current Visit: No Status: Chronic (5) COPD exacerbation Current Visit: Yes Status: Acute Brief History of Present Illness: 83-year-old woman with a history CHF, chronic lymphedema of lower extremities, hypertension presented to the emergency department with a complaint of shortness of breath as well as bilateral lower extremity swelling and pain. Patient stated she used her inhalers without any improvement. She is on Lasix 80 mg daily and metolazone once a week. Chest x-ray done in the ED was unremarkable. There was a concern for cellulitis of the lower extremities as well as COPD exacerbation. Patient was admitted for further management. Hospital Course: The patient was admitted to the medical floor and treated for COPD exacerbation steroid, scheduled nebulizers and antibiotics. She was seen and evaluated by pulmonary-Dr. Britton. She was also treated with IV Lasix for lower extremity edema. Her symptoms clinically improved with treatment. Her lower extremity edema improved with IV lasix. She is deemed clinically stable for discharge. No changes were made in her home medications. She is prescribed doxycycline to continue treatment for lower extremity cellulitis. Vital Signs/Physical Exam: Temp Pulse Resp BP Pulse Ox 97.7 F 60 16 126/60 99 06/03/19 08:00 06/03/19 09:40 06/03/19 08:00 06/03/19 09:40 06/03/19 08:00 General: Alert, In no apparent distress, Oriented x3 HEENT: Mucous membr. moist/pink Neck: Supple, JVD not distended Respiratory: Clear to auscultation bilaterally, Normal air movement Cardiovascular: Edema (1+ lower bilateral extremity edema) Gastrointestinal: Normal bowel sounds, Soft and benign, No tenderness Musculoskeletal: Other (Bilateral lower extremity lymphedema) Integumentary: Erythema (Bilateral lower extremities) Neurological: Other (Nonfocal.) Laboratory Data at Discharge: WBC 7.0 K/uL (4.3-10.9) 06/01/19 02:15 Hgb 10.3 g/dL (12.0-15.0) L 06/01/19 02:15 Hct 30.6 % (36.0-45.0) L 06/01/19 02:15 Plt Count 222 K/uL (152-406) 06/01/19 02:15 PT 11.0 SECONDS (9.5-12.5) 06/01/19 02:15 INR 0.93 06/01/19 02:15 Sodium 141 mmol/L (136-145) 06/03/19 05:54 Potassium 4.1 mmol/L (3.5-5.1) 06/03/19 05:54 BUN 37 mg/dL (7-18) H 06/03/19 05:54 Creatinine 0.84 mg/dL (0.55-1.3) 06/03/19 05:54 Glucose 133 mg/dL (74-106) H 06/03/19 05:54 Phosphorus 3.0 mg/dL (2.5-4.9) 06/02/19 06:00 Magnesium 2.6 mg/dL (1.8-2.4) H 06/01/19 02:15 Total Bilirubin 0.6 mg/dL (0.2-1.0) 06/01/19 02:15 AST 16 U/L (15-37) 06/01/19 02:15 ALT 16 U/L (12-78) 06/01/19 02:15 Alkaline Phosphatase 53 U/L (45-117) 06/01/19 02:15 Home Medications: Ferrous Sulfate [Iron] 65 mg PO DAILY 08/06/16 Pramipexole Di-HCl [Pramipexole ER] 1.5 mg PO BEDTIME 08/06/16 Levothyroxine [Synthroid*] 112 mcg PO [id number] 12/11/17 Ropinirole HCl [Requip] 0.5 mg PO BEDTIME 12/11/17 Calcium Lactate 255 mg PO TID 07/19/18 Furosemide 80 mg PO DAILY 30 Days #30 tablet 07/20/18 Cholecalciferol (Vitamin D3) [Vitamin D3] 2,000 unit PO DAILY 12/15/18 cloNIDine [Clonidine] 0.2 mg TD EVERY 7TH DAY 01/29/19 Magnesium l-Lactate [Mag-Tab Sr] 2 tab PO DAILY 02/12/19 Albuterol Sulfate [Albuterol Sulfate Hfa] 90 mcg IH DAILY PRN 06/01/19 Ferrous Gluconate [Iron] 65 mg PO SEECOM 06/01/19 Fluticasone [Flonase 50MCG Nasal [place]*] 50 mcg IH DAILY 06/01/19 Hydralazine [Apresoline*] 50 mg PO BID 06/01/19 metOLazone [Metolazone] 5 mg PO EVERY 7TH DAY 06/01/19 Doxycycline Hyclate [Vibramycin] 100 mg PO BID #14 capsule 06/03/19 New Medications: Doxycycline Hyclate [Vibramycin] 100 mg PO BID #14 capsule Diet: AHA Activity: Ad nancy Time spent managing pt's care (in minutes): 36
== END 2019-06-03 13:31 | disposition home health service (06) ==
LOC: ER 01:30 → 2ND 03:50 → INTOOBSV 06-02 14:26 → OBSVTOIN 06-02 14:26
PROVIDERS: ADMIT Hospitalist; ATTEND Internal Medicine
DX: J44.1 Chronic obstructive pulmonary disease with (acute) exacerbation (principal); I87.333 Chronic venous hypertension (idiopathic) with ulcer and inflammation of bilateral lower extremity; L97.829 Non-pressure chronic ulcer of other part of left lower leg with unspecified severity; L97.819 Non-pressure chronic ulcer of other part of right lower leg with unspecified severity; I89.0 Lymphedema, not elsewhere classified; L03.119 Cellulitis of unspecified part of limb; I13.0 Hypertensive heart and chronic kidney disease with heart failure and stage 1 through stage 4 chronic kidney disease, or unspecified chronic kidney disease; N18.3 Chronic kidney disease, stage 3 (moderate); I50.9 Heart failure, unspecified; G25.81 Restless legs syndrome; K21.9 Gastro-esophageal reflux disease without esophagitis; E03.9 Hypothyroidism, unspecified; Z88.6 Allergy status to analgesic agent; Z88.0 Allergy status to penicillin; Z88.2 Allergy status to sulfonamides; Z88.8 Allergy status to other drugs, medicaments and biological substances; Z82.5 Family history of asthma and other chronic lower respiratory diseases; Z82.49 Family history of ischemic heart disease and other diseases of the circulatory system
CPT/HCPCS: 96365; 93005; 87040 ×2; 87088; 85025; 87086; 80048 ×3; 36415 ×3; 83735; 84100; 85610; 82565; 80076; 81003; 80202 ×2; 84484; 84145; 83880; 71045; 94640 ×2; 82805; 96375; 99285; J1940 ×3; J0456; J1650 ×3; J0696; G0378 ×5; J7030 ×2; J7040 ×3; J2405; J2920; J7512

== ENCOUNTER 2019-07-06 11:56 | Observation (INO) | payer OTHER ==
--- OUTSIDE RECORDS SUMMARY | 2019-07-06 11:59 | XMS REPORT ---
:1935 Author Organization [facility] t Address [address] [place] [address] [place] [id number] Care Team Providers Name Role Phone Unavailable Unavailable Unavailable Problems This patient has no known problems. Allergies, Adverse Reactions, Alerts This patient has no known allergies or adverse reactions. Medications This patient has no known medications.
[2019-07-06 13:30] LABS: Absolute Lymphocytes (CBC) 0.9 K/uL (0.7-4.9); Basophils % 0.7 % (0-1.3); Hematocrit 28.8 % (36.0-45.0); Lymphocytes % 13.5 % (15.3-44.8); MPV 8.6 fL (7.6-11.3); RBC Red Blood Cell Count 3.19 M/uL (3.86-4.86)
--- NOTE | 2019-07-06 13:49 | RAD REPORT ---
EXAM DESCRIPTION: Ramya Single View07/06/2019 1:39 pm CLINICAL HISTORY: sob COMPARISON: 05/2019 FINDINGS: The lungs appear clear of acute infiltrate. The heart is normal size IMPRESSION: No acute abnormalities displayed
[2019-07-06 13:50] LABS: ALT/SGPT 15 U/L (12-78); AST/SGOT 15 U/L (15-37); Albumin 3.7 g/dL (3.4-5.0); Alkaline Phosphatase 57 U/L (45-117); BUN Blood Urea Nitrogen 74 mg/dL (7-18); Bicarbonate 36 mmol/L (21-32); Bilirubin Direct 0.2 mg/dL (0-0.2); Bilirubin Total 0.8 mg/dL (0.2-1.0); Glucose Level 137 mg/dL (74-106); Magnesium 3.2 mg/dL (1.8-2.4); NT PRO-BNP 427 pg/mL (<450); Protein, Total 7.7 g/dL (6.4-8.2); Sodium Level 133 mmol/L (136-145); Troponin (Emerg Dept Use Only) < 0.02 ng/mL (0.0-0.045)
[2019-07-06 13:51] LABS: Potassium 2.7 mmol/L (3.5-5.1)
[2019-07-06] MEDS ORDERED: NA CHLORIDE 0.9% 250 ML ONE (14:08)
[2019-07-06] MEDS ORDERED: POTASSIUM CL SA 10 MEQ TAB PO ONE ×2 (14:08→22:26)
[2019-07-06] MEDS ORDERED: KCL 20 MEQ/100 mL IVPB 20 MEQ/100 ML BAG IV ONE (14:08)
--- NOTE | 2019-07-06 15:49 | ER ---
Nurse's Notes [facility] Name: Joyce Ramírez Age: 83 yrs Sex: Female : 1935 Arrival Date: 07/06/2019 Time: 11:58 Bed 13 Private MD: Diagnosis: Other chest pain;Shortness of breath;Hypokalemia;Hypermagnesemia Presentation: 07/05 12:12 Chief complaint: Patient's son or daughter states: Chest pain since last night, ca1 intermittent described as tight, sharp pain. Reports SOB with exertion. Denies cough and fever. Swelling on both legs, daughter says pt has cellulitis off and on for 3 years. PT also has CHF. Coronavirus screen: Proceed with normal triage. Patient denies a cough. Patient reports shortness of breath or difficulty breathing. Patient denies measured and/or subjective temperature greater than 100.4F prior to today's visit. Patient denies travel on a cruise ship or to a country the [facility] currently lists as an affected area. Patient denies contact with known and/or suspected case of COVID-19. Ebola Screen: Patient negative for fever greater than or equal to 101.5 degrees Fahrenheit, and additional compatible Ebola Virus Disease symptoms Patient denies exposure to infectious person. Patient denies travel to an Ebola-affected area in the 21 days before illness onset. No symptoms or risks identified at this time. Initial Sepsis Screen: Does the patient meet any 2 criteria? No. Patient's initial sepsis screen is negative. Does the patient have a suspected source of infection? No. Patient's initial sepsis screen is negative. Risk Assessment: Do you want to hurt yourself or someone else? Patient reports no desire to harm self or others. Onset of symptoms was July 05, 2019. 12:12 Method Of Arrival: Wheelchair ca1 12:12 Acuity: BRITTANI 3 ca1 Historical: - Allergies: 12:20 MONTSERRAT INHIBITORS; ca1 12:20 Aspirin; ca1 12:20 Beta-Blockers (Beta-Adrenergic Blocking Agts); ca1 12:20 CALCIUM CHANNEL BLOCKING AGENTS-PHENYLALKYLAMINES; ca1 12:20 Codeine; ca1 12:20 Doxycycline; ca1 12:20 Demerol; ca1 12:20 Levofloxacin; ca1 12:20 Metolazone; ca1 12:20 PENICILLINS; ca1 12:20 Ofiyayb-Sfn-Htg Reductase Inhibitors; ca1 12:20 Sulfa (Sulfonamide Antibiotics); ca1 12:20 tolterodine; ca1 - Home Meds: 12:20 levothyroxine 112 mcg tab 1 tab once daily [Active]; furosemide 80 mg Oral tab 1 tab ca1 once daily [Active]; Clonidine 0.2 mcg patch Oral weekly [Active]; 12:34 pramipexole 1.5 mg Oral TbER 1 tab once daily [Active]; hydralazine 50 mg oral tab 1 ca1 tab 2 times per day [Active]; ropinirole 0.5 mg Oral tab 1 tab daily [Active]; Calcium Lactate Oral 255 mg daily [Active]; Magnesium Lactate 84 mg daily [Active]; Vitamin D3 2,000 unit Oral tab daily [Active]; Iron CR 65 mg Oral daily [Active]; Flonase 50 mcg/actuation Nasal spsn 1 spray once daily [Active]; Albuterol Inhl [Active]; Metalozone 5mg weekly [Active]; - PMHx: 12:20 Anemia; Cellulitis; CHF; GERD; Hyperlipidemia; Hypertension; Hypothyroidism; RLS; ca1 - PSHx: 12:20 Hysterectomy; Knee surgery; ca1 - Immunization history:: Adult Immunizations up to date, Pneumococcal vaccine is up to date, Flu vaccine is up to date. - Social history:: Smoking status: Patient denies any tobacco usage or history of. Screenin:28 Abuse screen: Denies threats or abuse. Nutritional screening: No deficits noted. em Tuberculosis screening: No symptoms or risk factors identified. Fall Risk None identified. Assessment: 12:29 Reassessment: daughter's number for updates and questions: [phone]. ca1 12:40 General: Appears in no apparent distress. uncomfortable, Behavior is calm, cooperative, em Denies fever. Pain: Complains of pain in chest Pain currently is 5 out of 10 on a pain scale. Neuro: Level of Consciousness is awake, alert, obeys commands, Oriented to person, place, time, situation, Appropriate for age. Cardiovascular: Capillary refill < 3 seconds Patient's skin is warm and dry. Rhythm is sinus rhythm. Respiratory: Airway is patent Respiratory effort is labored, Respiratory pattern is regular, tachypnea Breath sounds are diminished bilaterally. Derm: Skin is intact, is healthy with good turgor, Skin is pink, warm \T\ dry. Musculoskeletal: Capillary refill < 3 seconds, Range of motion: intact in all extremities. 14:20 Reassessment: Patient appears in no apparent distress at this time. Patient and/or em family updated on plan of care and expected duration. Pain level reassessed. Patient is alert, oriented x 3, equal unlabored respirations, skin warm/dry/pink. Patient states feeling better. Patient states symptoms have improved. 16:39 Reassessment: Patient appears in no apparent distress at this time. Patient and/or em family updated on plan of care and expected duration. Pain level reassessed. Patient is alert, oriented x 3, equal unlabored respirations, skin warm/dry/pink. pending room assignment. 17:09 Reassessment: hospitalist at bedside. em Vital Signs: 12:12 BP 140 / 59; Pulse 72; Resp 19 S; Temp 97.9(O); Pulse Ox 96% on R/A; Weight 83.46 kg ca1 (R); Height 5 ft. 3 in. (160.02 cm) (R); Pain 5/10; 13:56 BP 124 / 58; Pulse 59; Resp 18; Pulse Ox 100% on R/A; em 15:00 BP 117 / 54; Pulse 61; Resp 18; Pulse Ox 99% on R/A; em 17:08 BP 114 / 49; Pulse 57; Resp 18; Pulse Ox 97% on R/A; em 17:59 BP 124 / 81; Pulse 59; Resp 18; Temp 97.8; Pulse Ox 99% on R/A; em 12:12 Body Mass Index 32.59 (83.46 kg, 160.02 cm) ca1 ED Course: 11:58 Patient arrived in ED. ag5 12:16 Triage completed. ca1 12:21 Arm band placed on. EKG completed in triage. Results shown to MD. ca1 12:26 Woody Stallworth, RN is Primary Nurse. em 12:28 Patient has correct armband on for positive identification. Placed in gown. Bed in low em position. Call light in reach. Side rails up X2. gambling monitor on. Pulse ox on. NIBP on. 12:30 Initial lab(s) drawn, by me, sent to lab. Inserted saline lock: 20 gauge in right em antecubital area, using aseptic technique. Blood collected. 12:39 Robert Bernal MD is Attending Physician. kdr 13:40 XRAY Chest (1 view) In Process Unspecified. EDMS 15:47 Prince Ramírez MD is Hospitalizing Provider. kdr 16:41 No provider procedures requiring assistance completed. em 17:17 Patient admitted, IV remains in place. em Administered Medications: 14:10 Drug: Potassium Chloride 40 mEq Route: PO; em 16:41 Follow up: Response: No adverse reaction em 14:10 Drug: Potassium Chloride 20 mEq Route: IV; Rate: calculated rate; Site: right em antecubital; 17:17 Follow up: Response: No adverse reaction; IV Status: Completed infusion; IV Intake: em 100ml Intake: 17:17 IV: 100ml; Total: 100ml. em Outcome: 15:48 Decision to Hospitalize by Provider. kdr 17:16 Admitted to Tele accompanied by tech, via stretcher, room 229, with oxygen, with chart, em Report called to ISABELLA Dos Santos 17:16 Condition: good 17:16 Instructed on the need for admit, Demonstrated understanding of instructions. 18:01 Patient left the ED. em Signatures: Dispatcher [employer] EDMS Robert Bernal MD MD kdr Woody Stallworth RN RN Lenka Palumbo RN RN [facility] Rashad Silva 5 Corrections: (The following items were deleted from the chart) 18:01 17:59 BP 124 / 81; Pulse 59bpm; Resp 18bpm; Pulse Ox 99% RA; em em
--- NOTE | 2019-07-06 15:49 | EDPHYS ---
Physician Documentation [facility] Name: Joyce Ramírez Age: 83 yrs Sex: Female : 1935 Arrival Date: 07/06/2019 Time: 11:58 Bed 13 Private MD: ED Physician Robert Bernal HPI: 07/05 18:15 This 83 yrs old Female presents to ER via Wheelchair with complaints of kdr Shortness Of Breath, Chest Pain. 18:15 The patient has shortness of breath at rest. Onset: The symptoms/episode began/occurred kdr suddenly, this morning. Duration: The symptoms are continuous. The patient's shortness of breath is aggravated by exertion, light activity, is alleviated by nothing. Associated signs and symptoms: The patient has no apparent associated signs or symptoms. Severity of symptoms: At their worst the symptoms were moderate in the emergency department the symptoms are unchanged. It is unknown whether or not the patient has had similar symptoms in the past. It is unknown whether or not the patient has recently seen a physician. The patient is was eating lunch when she became SOB, She also c/o chest pain that is diffuse across her chest. On initial interview, she seems slightly somnolent but responds appropriately to questions. Historical: - Allergies: 12:20 MONTSERRAT INHIBITORS; ca1 12:20 Aspirin; ca1 12:20 Beta-Blockers (Beta-Adrenergic Blocking Agts); ca1 12:20 CALCIUM CHANNEL BLOCKING AGENTS-PHENYLALKYLAMINES; ca1 12:20 Codeine; ca1 12:20 Doxycycline; ca1 12:20 Demerol; ca1 12:20 Levofloxacin; ca1 12:20 Metolazone; ca1 12:20 PENICILLINS; ca1 12:20 Yvdjevg-Bhn-Qri Reductase Inhibitors; ca1 12:20 Sulfa (Sulfonamide Antibiotics); ca1 12:20 tolterodine; ca1 - Home Meds: 12:20 levothyroxine 112 mcg tab 1 tab once daily [Active]; furosemide 80 mg Oral tab 1 tab ca1 once daily [Active]; Clonidine 0.2 mcg patch Oral weekly [Active]; 12:34 pramipexole 1.5 mg Oral TbER 1 tab once daily [Active]; hydralazine 50 mg oral tab 1 ca1 tab 2 times per day [Active]; ropinirole 0.5 mg Oral tab 1 tab daily [Active]; Calcium Lactate Oral 255 mg daily [Active]; Magnesium Lactate 84 mg daily [Active]; Vitamin D3 2,000 unit Oral tab daily [Active]; Iron CR 65 mg Oral daily [Active]; Flonase 50 mcg/actuation Nasal spsn 1 spray once daily [Active]; Albuterol Inhl [Active]; Metalozone 5mg weekly [Active]; - PMHx: 12:20 Anemia; Cellulitis; CHF; GERD; Hyperlipidemia; Hypertension; Hypothyroidism; RLS; ca1 - PSHx: 12:20 Hysterectomy; Knee surgery; ca1 - Immunization history:: Adult Immunizations up to date, Pneumococcal vaccine is up to date, Flu vaccine is up to date. - Social history:: Smoking status: Patient denies any tobacco usage or history of. ROS: 18:15 Constitutional: Negative for fever, chills, and weight loss, Eyes: Negative for injury, kdr pain, redness, and discharge, ENT: Negative for injury, pain, and discharge, Neck: Negative for injury, pain, and swelling, Abdomen/GI: Negative for abdominal pain, nausea, vomiting, diarrhea, and constipation, Back: Negative for injury and pain, : Negative for injury, bleeding, discharge, and swelling, MS/Extremity: Negative for injury and deformity, Skin: Negative for injury, rash, and discoloration, Psych: Negative for depression, anxiety, suicide ideation, homicidal ideation, and hallucinations, Allergy/Immunology: Negative for hives, rash, and allergies, Endocrine: Negative for neck swelling, polydipsia, polyuria, polyphagia, and marked weight changes, Hematologic/Lymphatic: Negative for swollen nodes, abnormal bleeding, and unusual bruising. 18:15 Cardiovascular: Positive for chest pain, Negative for edema, palpitations. 18:15 Respiratory: Positive for dyspnea on exertion, shortness of breath, at rest. Exam: 18:15 Constitutional: This is a well developed, well nourished patient who is awake but kdr somnolent but in no acute distress. Head/Face: Normocephalic, atraumatic. Eyes: Pupils equal round and reactive to light, extra-ocular motions intact. Lids and lashes normal. Conjunctiva and sclera are non-icteric and not injected. Cornea within normal limits. Periorbital areas with no swelling, redness, or edema. Neck: Trachea midline, no thyromegaly or masses palpated, and no cervical lymphadenopathy. Supple, full range of motion without nuchal rigidity, or vertebral point tenderness. No Meningismus. Chest/axilla: Normal chest wall appearance and motion. Nontender with no deformity. No lesions are appreciated. Cardiovascular: Regular rate and rhythm with a normal S1 and S2. No gallops, murmurs, or rubs. Normal PMI, no JVD. No pulse deficits. Abdomen/GI: Soft, non-tender, with normal bowel sounds. No distension or tympany. No guarding or rebound. No evidence of tenderness throughout. Back: No spinal tenderness. No costovertebral tenderness. Full range of motion. Skin: Warm, dry with normal turgor. Normal color with no rashes, no lesions, and no evidence of cellulitis. MS/ Extremity: Pulses equal, no cyanosis. Neurovascular intact. Full, normal range of motion. Psych: Awake, alert, with orientation to person, place and time. Behavior, mood, and affect are within normal limits. 18:15 Respiratory: the patient does not display signs of respiratory distress, Respirations: no acute changes, Breath sounds: wheezing: that is mild, is heard in the left lower lobe, right lower lobe, left posterior lower lobe and right posterior lower lobe. Vital Signs: 12:12 BP 140 / 59; Pulse 72; Resp 19 S; Temp 97.9(O); Pulse Ox 96% on R/A; Weight 83.46 kg ca1 (R); Height 5 ft. 3 in. (160.02 cm) (R); Pain 5/10; 13:56 BP 124 / 58; Pulse 59; Resp 18; Pulse Ox 100% on R/A; em 15:00 BP 117 / 54; Pulse 61; Resp 18; Pulse Ox 99% on R/A; em 17:08 BP 114 / 49; Pulse 57; Resp 18; Pulse Ox 97% on R/A; em 17:59 BP 124 / 81; Pulse 59; Resp 18; Temp 97.8; Pulse Ox 99% on R/A; em 12:12 Body Mass Index 32.59 (83.46 kg, 160.02 cm) ca1 MDM: 15:48 Patient medically screened. kdr 18:15 Data reviewed: vital signs, nurses notes, lab test result(s), EKG, radiologic studies. kdr Data interpreted: awake overnight monitor:. Counseling: I had a detailed discussion with the patient and/or guardian regarding: the historical points, exam findings, and any diagnostic results supporting the discharge/admit diagnosis, lab results, radiology results, the need for further work-up and treatment in the hospital. 07/05 12:53 Order name: Basic Metabolic Panel; Complete Time: 14:16 kdr 07/05 12:53 Order name: CBC with Diff; Complete Time: 13:51 kdr 07/05 12:53 Order name: LFT's; Complete Time: 14:16 kdr 07/05 12:53 Order name: Magnesium; Complete Time: 14:16 kdr 07/05 12:53 Order name: NT PRO-BNP; Complete Time: 14:16 kdr 07/05 12:53 Order name: Troponin (emerg Dept Use Only); Complete Time: 14:16 kdr 07/05 16:16 Order name: Basic Metabolic Panel [facility] 07/05 16:16 Order name: CBC with Automated Diff [facility] 07/05 16:16 Order name: Lipid Profile [facility] 07/05 16:16 Order name: Lipid Profile [facility] 07/05 16:16 Order name: Troponin I [facility] 07/05 16:16 Order name: Troponin I [facility] 07/05 16:16 Order name: Troponin I [facility] 07/05 16:16 Order name: Troponin I [facility] 07/05 12:53 Order name: XRAY Chest (1 view); Complete Time: 13:51 [facility] 07/05 12:53 Order name: EKG; Complete Time: 12:53 [facility] 07/05 12:53 Order name: Cardiac monitoring; Complete Time: 13:00 [facility] 07/05 12:53 Order name: EKG - Nurse/Tech; Complete Time: 13:00 [facility] 07/05 12:53 Order name: IV Saline Lock; Complete Time: 13:00 [facility] 07/05 12:53 Order name: Labs collected and sent; Complete Time: 13:00 [facility] 07/05 12:53 Order name: O2 Per Protocol; Complete Time: 12:59 [facility] 07/05 12:53 Order name: O2 Sat Monitoring; Complete Time: 12:59 [facility] 07/05 13:17 Order name: Labs - recollect needed: recollect purple and green top; Complete Time: eb 13:31 07/05 16:16 Order name: Echo with Doppler [facility] 07/05 17:32 Order name: Hemoglobin A1c EDMS Administered Medications: 14:10 Drug: Potassium Chloride 40 mEq Route: PO; em 16:41 Follow up: Response: No adverse reaction em 14:10 Drug: Potassium Chloride 20 mEq Route: IV; Rate: calculated rate; Site: right em antecubital; 17:17 Follow up: Response: No adverse reaction; IV Status: Completed infusion; IV Intake: em 100ml Disposition: 07/06/19 15:48 Hospitalization ordered by Prince Darrell for Observation. Preliminary diagnosis are Other chest pain, Shortness of breath, Hypokalemia, Hypermagnesemia. - Bed requested for Telemetry/MedSurg (observation). - Status is Observation. em - Condition is Fair. - Problem is an acute exacerbation. - Symptoms have improved. Signatures: Dispatcher [employer] EDMS Robert Bernal MD MD kdr Munoz, Edgar, RN RN Jo Null Lenka Puckett RN RN ca1 Corrections: (The following items were deleted from the chart) 17: 15:48 Hospitalization Ordered by Prince Darrell BOYER for Observation. Preliminary eb diagnosis is Other chest pain; Shortness of breath; Hypokalemia; Hypermagnesemia. Bed requested for Telemetry/MedSurg (observation). Status is Observation. Condition is Fair. Problem is an acute exacerbation. Symptoms have improved. kdr 18:01 17:09 07/06/2019 15:48 Hospitalization Ordered by Prince Darrell BOYER for Observation. em Preliminary diagnosis is Other chest pain; Shortness of breath; Hypokalemia; Hypermagnesemia. Bed requested for Telemetry/MedSurg (observation). Status is Observation. Condition is Fair. Problem is an acute exacerbation. Symptoms have improved. eb
[2019-07-06] MEDS ORDERED: NITROGLYCERIN 0.4 MG/TAB SL PRN (16:12)
[2019-07-06] MEDS: INSULIN -REGULAR HUMAN 50 UNIT/0.5 ML ML SQ SCH ×2 (16:30→20:59)
--- NOTE | 2019-07-06 17:26 | P.HP ---
Certification for Inpatient Patient admitted to: Observation With expected LOS: <2 Midnights Patient will require the following post-hospital care: None Practitioner: I am a practitioner with admitting privileges, knowledge of patient current condition, hospital course, and medical plan of care. Services: Services provided to patient in accordance with Admission requirements found in Title 42 Section 412.3 of the Code of Federal Regulations Patient History Date of Service: 07/06/19 Reason for admission: chest pain, ACS r/o History of Present Illness: Patient is a 83-year-old female with a past medical history of hypertension, hypothyroidism who presents from her home for evaluation of shortness of breath. She reports at the onset of her symptoms was the morning of admission after breakfast. She suddenly started experiencing dyspnea with wheezing. Was also expressing chest tightness during this time. Her daughter who was present brought her to the emergency room. As per chart review, she has a history of diastolic heart failure. She has chronic bilateral lymphedema. Associated symptoms include chills. She denies any fever or cough, denies any nausea or vomiting or dysuria. Allergies aspirin Allergy (Intermediate, Verified 01/29/19 21:39) Nausea/Vomiting codeine Allergy (Intermediate, Verified 01/29/19 21:39) Nervousness, can't sleep Penicillins Allergy (Intermediate, Verified 01/29/19 21:39) diarrhea Xbqnnsh-Yfv-Aif Reductase Inhibitor Allergy (Intermediate, Verified 12/15/18 03:39) restless leg syndrome Sulfa (Sulfonamide Antibiotics) Allergy (Intermediate, Verified 01/29/19 21:39) Dizziness, hallucinations MONTSERRAT Inhibitors Allergy (Verified 01/29/19 21:39) Anaphylaxis levofloxacin Allergy (Verified 12/15/18 03:39) Shortness of breath tolterodine Allergy (Verified 12/15/18 03:39) ankle swelling and frequent urinating Beta-Blockers (Beta-Adrenergic Bloc Adverse Reaction (Verified 12/15/18 03:39) unknown Calcium Channel Blocking Agents-Dih Adverse Reaction (Verified 12/15/18 03:39) nervousness doxycycline Adverse Reaction (Verified 12/15/18 03:39) severe headache metolazone Adverse Reaction (Verified 12/15/18 03:39) severe back pain Home Medications: Ferrous Sulfate [Iron] 65 mg PO DAILY 08/06/16 Pramipexole Di-HCl [Pramipexole ER] 1.5 mg PO BEDTIME 08/06/16 Levothyroxine [Synthroid*] 112 mcg PO [id number] 12/11/17 Ropinirole HCl [Requip] 0.5 mg PO BEDTIME 12/11/17 Calcium Lactate 255 mg PO TID 07/19/18 Furosemide 80 mg PO DAILY 30 Days #30 tablet 07/20/18 Cholecalciferol (Vitamin D3) [Vitamin D3] 2,000 unit PO DAILY 12/15/18 cloNIDine [Clonidine] 0.2 mg TD EVERY 7TH DAY 01/29/19 Magnesium l-Lactate [Mag-Tab Sr] 2 tab PO DAILY 02/12/19 Albuterol Sulfate [Albuterol Sulfate Hfa] 90 mcg IH DAILY PRN 06/01/19 Ferrous Gluconate [Iron] 65 mg PO SEECOM 06/01/19 Fluticasone [Flonase 50MCG Nasal Wren*] 50 mcg IH DAILY 06/01/19 Hydralazine [Apresoline*] 50 mg PO BID 06/01/19 metOLazone [Metolazone] 5 mg PO EVERY 7TH DAY 06/01/19 Doxycycline Hyclate [Vibramycin] 100 mg PO BID #14 capsule 06/03/19 - Past Medical/Surgical History Diabetic: No -: Hypertension -: Hypothyroidism -: Edema to the lower extremities -: Venous insufficiency -: Restless leg syndrome -: GERD -: Urinary incontinence -: CHF, likely diastolic dysfunction -: Torn retina rt -: Hysterectomy -: Bilateral oophorectomy -: Left breast cyst removed -: Total right knee replacement -: Cataract surgery Psychosocial/ Personal History: Patient is , she has 3 children. She does not work. She lives by herself but near family. - Family History Sister -: Lung disease Notes: Copd,Asthma Father -: Heart disease Mother -: Hypertension - Social History Alcohol use: No CD- Drugs: No Caffeine use: No Physical Examination - Physical Exam General: Mild distress HEENT: Atraumatic, Normocephalic Neck: JVD not distended Respiratory: Clear to auscultation bilaterally, Normal air movement Cardiovascular: Edema Gastrointestinal: Normal bowel sounds, Soft and benign, Non-distended Musculoskeletal: Swelling, Erythema, Tenderness Integumentary: Rash(es), Skin lesion, Tenderness/swelling, Erythema Neurological: Normal speech, Sensation intact, Normal affect - Studies Laboratory Data (last 24 hrs) 07/06/19 13:22: WBC 6.4, Hgb 9.7 L, Hct 28.8 L, Plt Count 229 07/06/19 13:22: Sodium 133 L, Potassium 2.7 L*, BUN 74 H, Creatinine 1.37 H, Glucose 137 H, Magnesium 3.2 H D, Total Bilirubin 0.8, AST 15, ALT 15, Alkaline Phosphatase 57 Assessment and Plan - Problems (Diagnosis) (1) Chest pain Current Visit: Yes Status: Acute (2) Abnormal renal function Onset Date: 05/24/16 Current Visit: No Status: Acute (3) CHF (congestive heart failure) Onset Date: 06/28/16 Current Visit: No Status: Acute Qualifiers: (4) Cellulitis Onset Date: 05/24/16 Current Visit: No Status: Acute Qualifiers: (5) Hypokalemia Current Visit: Yes Status: Acute - Plan Assessment 83-year-old female with a past medical history of hypertension, hypothyroidism and congestive heart failure with chronic upper per for lymphedema who presented the ER with sudden onset of shortness of breath associated with chest pain. Her 1st troponin was negative, BNP of 472 Chest pain Hypertension Congestive heart failure Lymphedema Plan Admit to observation with telemetry Trend troponin and EKG Follow-up 2D echo Check hemoglobin A1c and lipid panel Start clindamycin for Ole superimposed cellulitis of bilateral lower extremities Lactated Ringer infusion Replace potassium - Advance Directives Does patient have a Living Will: Yes Does patient have a Durable POA for Healthcare: Yes
[2019-07-06] MEDS ORDERED: POTASSIUM CL 40 MEQ in NA CHLORIDE 0.9% 500 ML IV SCH (18:00)
[2019-07-06] MEDS ORDERED: Ringers Lactate 1,000 ML IV SCH (18:00)
[2019-07-06 18:16] VITALS: BMI 30.6
[2019-07-06] MEDS: HEPARIN 5000 UNIT/ML 1 ML VIAL SQ SCH (18:29)
[2019-07-06] MEDS ORDERED: CLINDAMYCIN 600MG/D5W 1,200 MG/100 ML BAG IV ONE (20:35)
[2019-07-06] MEDS: CLINDAMYCIN PHOSPHATE 600 MG in NA CHLORIDE 0.9% 50 ML IV SCH (20:56)
[2019-07-06] MEDS: Ringers Lactate 1,000 ML IV SCH (20:58)
[2019-07-06 21:28] LABS: Absolute Lymphocytes (CBC) 1.3 K/uL (0.7-4.9); Basophils % 0.5 % (0-1.3); Hematocrit 26.3 % (36.0-45.0); Lymphocytes % 23.5 % (15.3-44.8); MPV 8.4 fL (7.6-11.3); RBC Red Blood Cell Count 2.78 M/uL (3.86-4.86)
[2019-07-06 21:48] LABS: HDL Cholesterol 80 mg/dL (40-60); LDL Cholesterol, Calculated 114 (<130); Potassium 2.9 mmol/L (3.5-5.1); Troponin I < 0.02 ng/mL (0.0-0.045)
[2019-07-06] MEDS: KCL 20 MEQ/100 mL IVPB 20 MEQ/100 ML BAG IV SCH (23:09)
[2019-07-07] MEDS: CLINDAMYCIN PHOSPHATE 600 MG in NA CHLORIDE 0.9% 50 ML IV SCH ×3 (00:34→17:46)
[2019-07-07] MEDS: HEPARIN 5000 UNIT/ML 1 ML VIAL SQ SCH ×3 (00:36→17:00)
[2019-07-07] MEDS: KCL 20 MEQ/100 mL IVPB 20 MEQ/100 ML BAG IV SCH (00:46)
[2019-07-07 05:47] LABS: Magnesium 2.9 mg/dL (1.8-2.4); Potassium 3.6 mmol/L (3.5-5.1)
[2019-07-07] MEDS: INSULIN -REGULAR HUMAN 50 UNIT/0.5 ML ML SQ SCH ×4 (07:30→21:00)
[2019-07-07] MEDS ORDERED: NA CHLORIDE 0.9% 250 ML ONE (08:15)
[2019-07-07] MEDS: Ringers Lactate 1,000 ML IV SCH ×2 (08:58→17:00)
[2019-07-07] MEDS ORDERED: ASPIRIN EC 81 MG TAB PO SCH (09:00)
--- NOTE | 2019-07-07 18:37 | P.DS ---
Admission Date: 07/06/19 Discharge Date: 07/07/19 Disposition: ROUTINE DISCHARGE Discharge Condition: GOOD Reason for Admission: chest pain, ACS r/o - Problems (1) Chest pain Current Visit: Yes Status: Acute (2) Abnormal renal function Onset Date: 05/24/16 Current Visit: No Status: Acute (3) CHF (congestive heart failure) Onset Date: 06/28/16 Current Visit: No Status: Acute Qualifiers: (4) Cellulitis Onset Date: 05/24/16 Current Visit: No Status: Acute Qualifiers: (5) Hypokalemia Current Visit: Yes Status: Acute Brief History of Present Illness: Patient is a 83-year-old female with a past medical history of hypertension, diastolic CHF and chronic bilateral lymphedema who presented from her home for evaluation of shortness of breath and chest pain. For ACS workup was negative. However, she showed found to have CVA hypokalemia with a potassium 2.7 and pre renal azotemia. After volume repletion and electrolyte replacement, she improved symptomatically. She was also placed on fax on for superimposed cellulitis of the lower extremities. Patient was re-evaluated by me today and she felt significantly improved. She will be discharged home today with a plan for outpatient ECHO since this is not done over the weekend. Vital Signs/Physical Exam: Temp Pulse Resp BP Pulse Ox 97.4 F 62 18 143/59 H 95 07/07/19 16:00 07/07/19 16:00 07/07/19 16:00 07/07/19 16:00 07/07/19 16:00 General: Alert, In no apparent distress, Cooperative HEENT: Atraumatic, Normocephalic Neck: Supple Respiratory: Clear to auscultation bilaterally, Normal air movement Cardiovascular: Normal pulses, Regular rate/rhythm, Normal S1 S2 Gastrointestinal: Normal bowel sounds, Soft and benign, Non-distended Musculoskeletal: No clubbing, No swelling, No contractures, No erythema, No tenderness, No warmth Integumentary: No rashes, No breakdown, Rash(es), Skin breakdown, Skin lesion, Erythema Neurological: Normal speech, Sensation intact, Normal affect Laboratory Data at Discharge: WBC 5.6 K/uL (4.3-10.9) 07/06/19 21:17 Hgb 9.2 g/dL (12.0-15.0) L 07/06/19 21:17 Hct 26.3 % (36.0-45.0) L 07/06/19 21:17 Plt Count 202 K/uL (152-406) 07/06/19 21:17 Sodium 140 mmol/L (136-145) 07/07/19 05:07 Potassium 3.6 mmol/L (3.5-5.1) 07/07/19 05:07 BUN 56 mg/dL (7-18) H 07/07/19 05:07 Creatinine 1.10 mg/dL (0.55-1.3) 07/07/19 05:07 Glucose 89 mg/dL (74-106) 07/07/19 05:07 Magnesium 2.9 mg/dL (1.8-2.4) H 07/07/19 05:07 Total Bilirubin 0.8 mg/dL (0.2-1.0) 07/06/19 13:22 AST 15 U/L (15-37) 07/06/19 13:22 ALT 15 U/L (12-78) 07/06/19 13:22 Alkaline Phosphatase 57 U/L (45-117) 07/06/19 13:22 Troponin I < 0.02 ng/mL (0.0-0.045) 07/07/19 08:25 Triglycerides 52 mg/dL (<150) 07/06/19 21:17 Cholesterol 204 mg/dL (<200) H 07/06/19 21:17 HDL Cholesterol 80 mg/dL (40-60) H 07/06/19 21:17 Cholesterol/HDL Ratio 2.55 07/06/19 21:17 Home Medications: Ferrous Sulfate [Iron] 65 mg PO SEECOM 08/06/16 Pramipexole Di-HCl [Pramipexole ER] 1.5 mg PO BEDTIME 08/06/16 Levothyroxine [Synthroid*] 112 mcg PO [id number] 12/11/17 Ropinirole HCl [Requip] 0.5 mg PO BEDTIME 12/11/17 Calcium Lactate 255 mg PO TID 07/19/18 Furosemide 80 mg PO DAILY 30 Days #30 tablet 07/20/18 Cholecalciferol (Vitamin D3) [Vitamin D3] 2,000 unit PO DAILY 12/15/18 cloNIDine [Clonidine] 0.2 mg TD EVERY 7TH DAY 01/29/19 Albuterol Sulfate [Albuterol Sulfate Hfa] 90 mcg IH DAILY PRN 06/01/19 Fluticasone [Flonase 50MCG Nasal [place]*] 50 mcg IH DAILY 06/01/19 Hydralazine [Apresoline*] 50 mg PO BID 06/01/19 metOLazone [Metolazone] 5 mg PO EVERY 7TH DAY 06/01/19 Potassium Chloride 20 meq PO DAILY #30 tab.er.prt 07/07/19 New Medications: Potassium Chloride 20 meq PO DAILY #30 tab.er.prt Diet: AHA
[2019-07-07 21:17] VITALS: BP 136/56; TEMP 98
[2019-07-07 23:07] VITALS: O2SAT 96
--- NOTE | 2019-07-08 07:41 | EKG ---
Test Date: 2019-07-06 Test Time: 12:09:52 Account Support Analyst: PREMA MEASUREMENT RESULTS: Intervals: Rate: 76 AL: 170 QRSD: 96 QT: 410 QTc: 461 [place]: P: 57 AL: 170 QRS: 36 T: 9 INTERPRETIVE STATEMENTS: Normal sinus rhythm Possible Inferior infarct, age undetermined Abnormal ECG Compared to ECG 06/01/2019 02:17:22 Left ventricular hypertrophy no longer present Early repolarization no longer present Myocardial infarct finding still present Electronically Signed On 07-08-19 07:39:22 CDT by Armond Pineda
== END 2019-07-07 20:10 | disposition home or self-care (01) ==
LOC: ER 11:56 → ERHOLD 17:31 → 2ND 17:36
PROVIDERS: ADMIT Internal Medicine; ATTEND Internal Medicine
DX: R07.9 Chest pain, unspecified (principal); I50.33 Acute on chronic diastolic (congestive) heart failure; E87.6 Hypokalemia; E03.9 Hypothyroidism, unspecified; I11.0 Hypertensive heart disease with heart failure; R94.4 Abnormal results of kidney function studies; I89.0 Lymphedema, not elsewhere classified; L03.116 Cellulitis of left lower limb; L03.115 Cellulitis of right lower limb; E83.41 Hypermagnesemia
CPT/HCPCS: 96365; 93005; 85025 ×2; 80048 ×3; 36415 ×2; 83735 ×2; 80061; 82947 ×6; 80076; 83036; 84484 ×4; 83880; 71045; 99285; 96366; J1644 ×3; S0077 ×2; J7120 ×2; J7030 ×2; G0378 ×3